=== PATIENT | male | born 1950 | race Caucasian/White ===

== ENCOUNTER 2019-02-18 15:41 | Outpatient (REF) | payer OTHER, SELFPAY ==
[2019-02-18 22:43] LABS: Calculated LDL 146 mg/dL; Cholesterol 259 mg/dL (50-200); HDL Cholesterol 36 mg/dL (40-60); Triglyceride 385 mg/dL (30-150)
[2019-02-22 08:38] LABS: PSA, Screening <0.1 ng/ml (0-4.5)
== END 2019-02-18 16:01 ==
LOC: NCHCN 15:41
PROVIDERS: PCP Family Medicine; Visit Provider Nurse Practitioner Family
DX: Z13.6 Encounter for screening for cardiovascular disorders (principal); Z12.5 Encounter for screening for malignant neoplasm of prostate; R69 Illness, unspecified
CPT/HCPCS: 80061; 84153

== ENCOUNTER 2020-02-16 19:45 | Outpatient (REF) | payer OTHER, SELFPAY ==
[2020-02-17 08:55] LABS: HCT 42.5 % (40.0-50.0); HGB 13.6 g/dL (13.5-17.5); MCH 30.4 pg (27.0-33.0); MCV 94.9 fL (80-95); MPV 11.9 fL (8.0-11.0); Platelet Count 248 10^3/uL (130-400); RBC 4.48 10^6/uL (4.36-5.78); RDW 13.2 % (11.8-14.1); RDW-SD 46.2 fL; WBC 8.68 10^3/uL (4.4-10.8)
[2020-02-17 09:02] LABS: ALT 42 U/L (16-63); AST 24 U/L (15-37); Albumin 3.8 g/dL (3.4-5.0); Alkaline Phosphatase 64 U/L (46-116); Anion Gap 5.7 mmol/L (3-11); BUN 14 mg/dL (7-18); Bilirubin, Total 0.3 mg/dL (0.2-1.0); CO2 29.3 mmol/L (21.0-32.0); CREATININE 0.69 mg/dL (0.70-1.30); Calcium 9.4 mg/dL (8.5-10.1); Calculated LDL 149 mg/dL (<100); Chloride 104 mmol/L (98-107); Cholesterol 238 mg/dL (<200); Glucose 107 mg/dL (74-106); HDL Cholesterol 36 mg/dL (40-60); Potassium 4.6 mmol/L (3.5-5.1); Sodium 139 mmol/L (136-145); Total Protein 6.8 g/dL (6.4-8.2); Triglyceride 268 mg/dL (<150)
== END 2020-02-16 20:05 ==
LOC: NCHCN 19:45
PROVIDERS: PCP Family Medicine; Visit Provider Nurse Practitioner Family
DX: E78.5 Hyperlipidemia, unspecified (principal); E66.9 Obesity, unspecified
CPT/HCPCS: 80053; 80061; 85027

== ENCOUNTER 2020-11-08 01:18 | Outpatient (CLI) | payer OTHER, SELFPAY ==
--- NOTE | 2020-11-08 | DI.MRI_ITS ---
Exam(s) MR IAC BRAIN WO/W EXAM: MR IAC BRAIN WO/W CLINICAL HISTORY: H90.3,BILAT ASYMMETRICAL SN HEARING LOSS TECHNIQUE: Multiplanar multisequence MRI of the brain was performed. Both noninfused and contrast i nfused sequences were performed. Internal auditory canal protocol was performed, IV Contrast injected was 20 cc Dotarem. COMPARISON: No prior brain imaging exams were available for comparison FINDINGS: CEREBRAL PARENCHYMA: No evidence of intracranial hemorrhage. There is no significant signal abnormal ity in the cerebellar hemispheres nor within the thai, midbrain, and thalami. There is minimal periv entricular signal abnormality, nonspecific. IAC'S: There is no evidence of mass in the cerebellopontine angles nor intra canalicular mass. No en hancing acoustic schwannoma-neuroma. On the sub millimeters slice thickness the 7th and 8th cranial nerves in both internal carotid arteries appear unremarkable. PITUITARY GLAND: The main finding here is an enhancing mass in the pituitary fossa which measures son roximately 2 cm maximum craniocaudal by 1 point 5 cm wide by 1.7 cm AP is probably a large pituitary adenoma. This extends into the suprasellar cistern almost to the level of the optic chiasm. Possibl y involving the right cavernous sinus although difficult to assess on this type of study. FLOW VOIDS: The expected flow void are noted. No evidence of obvious aneurysm nor obvious vascular ma lformation. PARANASAL SINUSES: Some mucosal thickening is noted in the left maxillary sinus. No associated fluid level. Right maxillary sinus is clear as are the frontal sinuses. No mass in the sphenoid sinuses. ORBITS: No obvious abnormal findings. IMPRESSION: 1. No evidence of mass in the cerebellopontine angles nor evidence of intra canalicular acoustic neur kathy-more Ivonne. 2. The main finding here is a prominent enhancing mass in the pituitary fossa and suprasellar cistern which is most probably a large pituitary adenoma. This will require further study with dedicated MR I scan of the pituitary fossa and cavernous sinuses. This is a separate contrast infused protocol. DATA REPOSITORY:
[2020-11-08 14:01] LABS: BUN 21 mg/dL (7-18); CREATININE 0.8 mg/dL (0.70-1.30)
[2020-11-08] MEDS: Normal Saline Flush 10 ML SYR IVP (14:17)
[2020-11-08] MEDS: Gadoterate meglumine 20 ML VIAL IVP (14:18)
== END 2020-11-08 01:38 ==
PROVIDERS: PCP Nurse Practitioner Family; Visit Provider Physician Assistant
DX: H90.3 Sensorineural hearing loss, bilateral (principal); E23.6 Other disorders of pituitary gland
CPT/HCPCS: 70553; 84520; 82565

== ENCOUNTER 2020-12-04 03:44 | Outpatient (CLI) | payer OTHER, SELFPAY ==
[2020-12-04 15:11] LABS: ALT 36 U/L (16-63); AST 26 U/L (15-37); Albumin 3.8 g/dL (3.4-5.0); Alkaline Phosphatase 59 U/L (46-116); Anion Gap 7.2 mmol/L (3-11); BUN 20 mg/dL (7-18); Bilirubin, Total 0.3 mg/dL (0.2-1.0); CO2 28.8 mmol/L (21.0-32.0); CREATININE 0.6 mg/dL (0.70-1.30); Calcium 9.7 mg/dL (8.5-10.1); Chloride 105 mmol/L (98-107); Glucose 106 mg/dL (74-106); Potassium 4.2 mmol/L (3.5-5.1); Sodium 141 mmol/L (136-145); TSH (W/Ref FT4) 1.83 uIU/mL (0.36-3.74); Total Protein 7.1 g/dL (6.4-8.2)
[2020-12-04 22:37] LABS: FSH 5.6 mIU/mL (1.4-18.1)
[2020-12-04 22:40] LABS: LH 2.6 mIU/mL (3.1-34.6)
[2020-12-05 10:03] LABS: Prolactin 860.9 ng/mL (2.1-17.7)
[2020-12-05 17:39] LABS: Adrenocorticotropic Hormone, P 63 pg/mL
[2020-12-08 09:33] LABS: IGF-1, LC/MS, S 72 ng/mL (32-209); Z-score -0.84 SD
== END 2020-12-04 03:45 | disposition home or self-care (01) ==
LOC: LBO 03:44
PROVIDERS: PCP Nurse Practitioner Family; Visit Provider Physician Assistant
DX: H90.3 Sensorineural hearing loss, bilateral (principal); E23.6 Other disorders of pituitary gland
CPT/HCPCS: 36415; 80053; 82024; 83001; 83002; 84146; 84305; 84443

== ENCOUNTER 2020-12-06 10:17 | Outpatient (REF) | payer OTHER, SELFPAY ==
[2020-12-12 23:18] LABS: Cortisol, U 20 mcg/24 h (3.5-45); Urine Volume 2500 mL
== END 2020-12-06 10:18 | disposition home or self-care (01) ==
LOC: LBN 10:17
PROVIDERS: PCP Nurse Practitioner Family; Visit Provider Physician Assistant
DX: E23.6 Other disorders of pituitary gland (principal)
CPT/HCPCS: 81050; 82530; 83789

== ENCOUNTER 2021-01-03 01:01 | Outpatient (CLI) | payer OTHER, SELFPAY ==
--- NOTE | 2021-01-03 | DI.MRI_ITS ---
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 Both noninfused and contrast infused sequences were performed. IV Contrast injected was 20 cc Dotarem. COMPARISON: MR MR IAC BRAIN WO/W from 11/08/2020 MR MR IAC BRAIN WO/W from 11/08/2020 FINDINGS: PITUITARY GLAND: There is a large mass in the pituitary fossa which completely fills the pituitary fo ssa extends into the suprasellar cistern but not to the level of the optic chiasm. This uniformly en hancing mass has eroded into the dorsum sella and extends asymmetrical into the right cavernous sinus surrounding the intracavernous right internal carotid artery. More subtle involvement of the left c avernous sinus. There is bulging of the floor of the sella. Mass has replaced part of the clivus-ba siocciput. This mass measures 2.4 cm craniocaudal, 2.6 cm wide, and 2 cm AP. The infundibulum is sl ightly deviated towards the left side. Mass does not extend into the pre pontine-retro sellar cister n. FLOW VOIDS: The expected flow void are noted. Flow void within the intracavernous internal carotid a rteries are intact bilaterally. No evidence of obvious aneurysm nor obvious vascular malformation. PARANASAL SINUSES: The visualized paranasal sinuses appear unremarkable. ORBITS: The mass does not appear to reach the optic chiasm nor into the orbits. IMPRESSION: 1. Large enhancing mass as described above occupying the entire pituitary fossa with extension into t he suprasellar cistern as well as into the right cavernous sinus. This most probably a pituitary macr o adenoma. DATA REPOSITORY:
[2021-01-03] MEDS: Normal Saline Flush 10 ML SYR IVP (08:33)
[2021-01-03] MEDS: Gadoterate meglumine 20 ML VIAL IVP (08:34)
--- NOTE | 2021-01-03 17:54 | DI.VRAD_ITS ---
PROCEDURE INFORMATION: Exam: MR Head Without and With Contrast Exam date and time: 01/03/2021 9:25 AM Age: 70 years old Clinical indication: Other: Not specified TECHNIQUE: Imaging protocol: MR of the head without and with intravenous contrast. Total images: 941 COMPARISON: MR IAC BRAIN WO/W 11/08/2020 2:03 PM FINDINGS: Brain: There is minimal periventricular and subcortical chronic white matter disease. No posterior fossa lesion. Cerebral ventricles: No hydrocephalus. Pituitary gland and sella: Again identified is a mass occupying the sella and suprasellar region. The lesion measures 1.9 cm in height by 1.8 cm in width. The lesion is isointense to brain parenchyma on T1 weighted images and slightly hyperintense on T2 weighted images. There is a stable small ill-defined region of T1 hyperintensity along the lateral superior aspect of the lesion which may represent fat or less likely methemoglobin/hemorrhage. There is no invasion of the clivus or cavernous sinus. There is relatively homogeneous enhancement of the lesion. Paranasal sinuses: No acute sinusitis. Mastoid air cells: No mastoid effusion. Orbital cavity: Unremarkable. Soft tissues: Unremarkable. IMPRESSION: Sellar/suprasellar mass. Favor pituitary macroadenoma. Dictated and Authenticated by: Deniz Lr MD. Ordering:NEHAL Mckinney MD
== END 2021-01-03 01:21 ==
PROVIDERS: PCP Nurse Practitioner Family; Visit Provider Physician Assistant
DX: D35.2 Benign neoplasm of pituitary gland (principal)
CPT/HCPCS: 70553

== ENCOUNTER 2021-02-12 03:23 | Outpatient (CLI) | payer OTHER, SELFPAY ==
[2021-02-12 21:35] LABS: T3,Free 3.3 pg/mL (2.8-5.3)
[2021-02-20 13:47] LABS: Testosterone, Free 3.86 ng/dL (3.28-12.2); Testosterone, Total 184 ng/dL (240-950)
== END 2021-02-12 03:24 | disposition home or self-care (01) ==
LOC: LBO 03:23
PROVIDERS: PCP Nurse Practitioner Family; Visit Provider Internal Medicine Endocrinology, Diabetes & Metabolism
DX: D35.2 Benign neoplasm of pituitary gland (principal); E23.0 Hypopituitarism
CPT/HCPCS: 36415; 84402; 84403; 84439; 84481

== ENCOUNTER 2021-07-24 16:29 | Outpatient (REF) | payer MEDICARE, SELFPAY ==
[2021-07-24 21:18] LABS: Hemoglobin A1C 6.2 % (<5.7)
[2021-07-24 21:25] LABS: Calculated LDL 90 mg/dL (<100); Cholesterol 187 mg/dL (<200); HDL Cholesterol 38 mg/dL (40-60); Triglyceride 297 mg/dL (<150)
== END 2021-07-24 16:30 | disposition home or self-care (01) ==
LOC: NCHCN 16:29
PROVIDERS: PCP Nurse Practitioner Family; Visit Provider Nurse Practitioner Family
DX: E78.5 Hyperlipidemia, unspecified (principal); R73.03 Prediabetes
CPT/HCPCS: 80061; 83036

== ENCOUNTER → 2021-08-24 00:45 | Outpatient (CLI) | payer MEDICARE, SELFPAY ==
--- NOTE | 2021-08-24 | DI.MRI_ITS ---
Exam(s) MR BRAIN PITUITARY WO/W EXAM: MR BRAIN PITUITARY WO/W CLINICAL HISTORY: MACROPROLACTINOMA, D35.2 TECHNIQUE: Multiplanar multisequence MRI of the brain was performed. Both noninfused and contrast i nfused sequences were performed. IV Contrast injected was 20 cc Dotarem. COMPARISON: MR MR IAC BRAIN WO/W from 11/08/2020 MR MR BRAIN PITUITARY WO/W from 01/03/2021 FINDINGS: PITUITARY GLAND: Previously described large mass in the pituitary fossa appears unchanged in size, ag ain extending into the suprasellar cistern but not to the level of the optic chiasm and with associat ed erosion of the dorsum sella, smooth erosion of the clivus-basiocciput, and bulging of the floor of the sella but without rupture into the subjacent sphenoid sinus. The mass does not extend appreciab ly into the pre pontine-retro sellar cistern. Involvement of the cavernous sinuses is again evident, unchanged CEREBRAL PARENCHYMA: No evidence of intracranial hemorrhage, new mass effect nor shift of midline str ucture. No extraaxial fluid collections. Ventricles are not enlarged nor shifted. There is no significant focal signal abnormality in the cerebellar hemispheres nor within the thai, m idbrain, and thalami. Mount of periventricular signal abnormality around the atrium of the lateral ventricles is unchanged. . There are no new ring enhancing lesions in the brain. There is no abnormal meningeal enhancement. FLOW VOIDS: The expected flow void are noted. No evidence of obvious aneurysm nor obvious vascular ma lformation. PARANASAL SINUSES: The visualized paranasal sinuses appear unremarkable. ORBITS: No obvious abnormal findings. IMPRESSION: 1. Stable appearance of the previously described pituitary macroadenoma. Also stable mild periventric ular white microvascular findings. 2. No abnormal enhancing intracranial finding. DATA REPOSITORY:
[2021-08-24 10:28] LABS: CREATININE 0.7 mg/dL (0.70-1.30)
[2021-08-24] MEDS: Normal Saline Flush 10 ML SYR IVP (10:33)
[2021-08-24] MEDS: Gadoterate meglumine 20 ML VIAL IVP (10:34)
--- NOTE | 2021-08-24 12:17 | DI.VRAD_ITS ---
PROCEDURE INFORMATION: Exam: MR Head Without and With Contrast Exam date and time: 08/24/2021 10:07 AM Age: 70 years old Clinical indication: Other: Macroprolactinoma TECHNIQUE: Imaging protocol: MR of the head without and with intravenous contrast. Contrast material: DOTAREM; Contrast volume: 20 ml; Contrast route: IV; COMPARISON: MR BRAIN PITUITARY WO/W 01/03/2021 8:19 AM FINDINGS: Brain: Patchy T2 prolongation in the cerebral white matter is nonspecific, but likely secondary to microvascular disease. Diffusion images are normal. No evidence of acute infarction. No evidence of acute intracranial hemorrhage. No extra-axial fluid collections. Ventricles and cerebrospinal fluid spaces are normal in size and configuration for the patient's age. There is no evidence of mass-effect or midline shift. Flow voids of the iliamna of Crews and major cerebral vascular structures appear intact. Craniocervical junction appears unremarkable, with normal position of cerebellar tonsils and no evidence of Chiari I malformation. There is no abnormal leptomeningeal or parenchymal contrast enhancement. Cerebral ventricles: Normal. No ventriculomegaly. Pituitary gland and sella: Stable size expansile lesion in the sellar region extending into the suprasellar region left greater than right. This expands the sella turcica with erosion the right dorsum sella and bilateral upper clivus. The fat signal to the left is fat within the left dorsum sella. This shows slightly in homogeneous enhancement and measures 1.9 cm x 1.7 cm x 1.7 cm. Small T2 hyperintense and cystic area in inferior aspect of lesion previously seen is no longer appreciated. Bones/joints: Unremarkable as visualized. Paranasal sinuses: Normal as visualized. No acute sinusitis. Mastoid air cells: Small amount right mastoid fluid. Orbital cavities: Unremarkable. Soft tissues: Unremarkable as visualized. IMPRESSION: Essentially stable pituitary macroadenoma. Dictated and Authenticated by: Paulette Whyte MD. Ordering:BLANE Bassett MD
== END ==
PROVIDERS: Physician Assistant Surgical; PCP Nurse Practitioner Family; Visit Provider Neurological Surgery
DX: Z01.812 Encounter for preprocedural laboratory examination (principal); D35.2 Benign neoplasm of pituitary gland
CPT/HCPCS: 70553; 82565

== ENCOUNTER 2024-03-09 16:25 | Outpatient (REF) | payer MEDICARE, SELFPAY ==
[2024-03-09 15:18] LABS: Abs Immature Grans 0.02 10^3/uL (0.0-0.06); Absolute Basophil Count 0.06 10^3/uL (0.0-0.2); Absolute Eosinophil Count 0.23 10^3/uL (0.0-0.7); Absolute Lymphocyte Count 1.04 10^3/uL (1.2-3.4); Absolute Monocyte Count 0.52 10^3/uL (0.1-0.8); Absolute Neutrophil Count 4.32 10^3/uL (1.2-6.7); Eosinophils % 3.7 %; HCT 40.5 % (40.0-50.0); Immature Grans % 0.3 %; Lymphocytes % 16.8 %; MCH 30.2 pg (27.0-33.0); MCHC 32.1 % (32.0-36.0); MCV 94 fL (80-95); Monocytes % 8.4 %; Neutrophils % 69.8 %; Platelet Count 269 10^3/uL (130-400); RDW 14.4 % (11.8-14.1); Reticulocyte 0.8 % (0.5-2.4); WBC 6.19 10^3/uL (4.4-10.8)
[2024-03-09 15:56] LABS: ALT 33 U/L (16-63); AST 27 U/L (15-37); Albumin 3.7 g/dL (3.4-5.0); Alkaline Phosphatase 97 U/L (46-116); Anion Gap 9.7 mmol/L (3-11); BUN 26 mg/dL (7-18); Bilirubin, Total 0.39 mg/dL (0.2-1.0); CO2 25.3 mmol/L (21.0-32.0); CREATININE 0.8 mg/dL (0.70-1.30); Calculated LDL 78 mg/dL (<100); Chloride 111 mmol/L (98-107); Cholesterol 159 mg/dL (<200); Estimated GFR 93.45 (mL/min/1.73m2); Ferritin 270 ng/mL (26-388); Folate 8.7 ng/mL (8.6-20.0); Glucose 90 mg/dL (74-106); HDL Cholesterol 58 mg/dL (40-60); Potassium 4.5 mmol/L (3.5-5.1); Sodium 146 mmol/L (136-145); Total Protein 7.6 g/dL (6.4-8.2); Triglyceride 118 mg/dL (<150); Vitamin B12 277 pg/mL (193-986)
--- OUTSIDE RECORDS SUMMARY | 2024-03-09 16:31 | XMS_ITS ---
Author Organization Unknown Address [address] [place], [place] [id number] Phone Care Team Providers Care Button Machine Operator Name Role Phone HAKEEM Benítez Attending Mauri Swanson Primary Unavailable Results COMPREHENSIVE METABOLIC PANNoelle Cordon (CMP) - Collect Date/Time: 02/13/2023 14:39 [facility] ID: [id number] - [id number] [address] [place], [place], [address] LOINC: 27837-9 Test Value Unit Reference Range Code Code System Flag GLUCOSE 99 mg/dL L=70 H=116 2345-7 LOINC BUN 14 mg/dL L=6 H=25 3094-0 LOINC CREATININE 0.65 mg/dL L=0.67 H=1.17 2160-0 LOINC L SODIUM SERUM 141 mmol/L L=136 H=145 2951-2 LOINC POTASSIUM SERUM 4.4 mmol/L L=3.4 H=5.2 2823-3 LOINC CHLORIDE SERUM 105 mmol/L L=96 H=110 2075-0 LOINC CARBON DIOXIDE (CO2) 29 mmol/L L=22 H=34 2028-9 LOINC ANION GAP 7.2 mmol/L 73570-7 LOINC CALCIUM SERUM 10.2 mg/dL L=8.2 H=10.2 70391-8 LOINC BILIRUBIN TOTAL 0.5 mg/dL L=0.0 H=1.3 1975-2 LOINC ALK. PHOS. 74 U/L L=46 H=116 6768-6 LOINC SGOT (AST) 30 U/L L=15 H=37 1920-8 LOINC SGPT (ALT) 28 U/L L=12 H=78 1742-6 LOINC TOTAL PROTEIN 7.0 gm/dL L=6.0 H=8.0 2885-2 LOINC ALBUMIN 3.8 gm/dL L=3.4 H=5.0 1751-7 LOINC AGE 72 years eGFR (non-Afr.Amer.) > 120 mL/min 53527-5 LOINC eGFR (Afr-Estonian) > 120 mL/min 38261-6 LOINC Social History Type Status Start Date End Date Code Code Syst em Smoking History Former smoker 5132893 SNOMED CT Sex Male Medications Medication Start Date End Date Route Frequency Dose Code Code System Medication Instructions Home Meds carBAMazepine 100MG Oral Capsule, Extended Release 02/19/2024 Unknown ORAL EVERY 12 HOURS 1 CAPSULE 696736 RxNorm TAKE 1 CAPSULE ORAL EVERY 12 HOURS Hospital Discharge Instructions Should you have any questions prior to discharge, please contact a member of your healthcare team. If you have left the hospital and have any questions, please contact your primary care physician. Reason For Referral No Data Found Problems Problem Start Date Resolved Date Status Code Code System DISORDER OF PROLACTIN 02/05/2023 resolved 8703010 09 SNOMED-CT HYPERCHOLESTEROLEMIA 02/05/2023 resolved 19945967 SNOMED-CT DEPRESSION 02/05/2023 resolved 01693370 SNOMED-C T PITUITARY TUMOR 01/07/2024 resolved 136911016 SNO MED-CT Allergies and Adverse Reactions Allergy Substance Reaction Severity Start Date Concern Status Co de Code System CODEINE Vomiting (SNOMED-CT: 874095516) Moderate Active 2670 RxNorm LATEX Hives (SNOMED-CT: 884707333) Moderate Active PENICILLIN Rash (SNOMED-CT: 000946805) Active Plan of Treatment No Data Found Encounters Encounter Diagnosis Start Date Code Code Sys tem Pre-surgery evaluation 02/13/2023 893394724 SNOME D-CT Personal Care Team Section Performer Name Performer Role Active Date Inactive Da te
--- OUTSIDE RECORDS SUMMARY | 2024-03-09 16:31 | XMS_ITS ---
Author Organization Unknown Address [address] [place] [phone] Phone Care Team Providers Care Metal [employer]ricating [employer] Helper Name Role Phone HAKEEM Benítez Attending Unavaila jonathon Swanson Primary Unavailable Social History Type Status Start Date End Date Code Code Syst em Smoking History Former smoker 7176056 SNOMED CT Sex Male Medications Medication Start Date End Date Route Frequency Dose Code Code System Medication Instructions Home Meds carBAMazepine 100MG Oral Capsule, Extended Release 02/19/2024 Unknown ORAL EVERY 12 HOURS 1 CAPSULE 597503 RxNorm TAKE 1 CAPSULE ORAL EVERY 12 [...] Code System DISORDER OF PROLACTIN 02/05/2023 resolved 0767357 09 SNOMED-CT HYPERCHOLESTEROLEMIA 02/05/2023 resolved 56918271 SNOMED-CT DEPRESSION 02/05/2023 resolved 29593848 SNOMED-C T PITUITARY TUMOR 01/07/2024 resolved 370188319 SNO MED-CT Allergies and Adverse Reactions Allergy Substance Reaction Severity Start Date Concern Status Co de Code System CODEINE Vomiting (SNOMED-CT: 757137771) Moderate Active 2670 RxNorm LATEX Hives (SNOMED-CT: 367663532) Moderate Active PENICILLIN Rash (SNOMED-CT: 365047608) Active Plan of Treatment No Data Found Encounters Encounter Diagnosis Start Date Code Code Sys tem Follow-up visit 03/11/2023 [id number] SNOMED-CT Personal Care Team Section Performer Name Performer Role Active Date Inactive Da te
--- OUTSIDE RECORDS SUMMARY | 2024-03-09 16:31 | XMS_ITS ---
Author Organization Unknown Address [address] [place] [phone] Phone Care Team Providers Care Judicial Administrative Assistant Name Role Phone REGI Ramos Attending Unavailable JB Swanson Primary Unavailable Results XR KNEE 4V LT* - Completed: 02/17/2024 10:36 LOINC: [facility] [place], [place] [address] RADIOLOGY BLOOD BANK SUPERVISOR REPORT Patient Name: SARAH POOL MRN: Sex: : Age: [id number] M [id number] Account: Accession: Admit: StayType: [id number] 02/17/2024 O Ordered: Order ID: Submitted: Ordering Provider: 02/17/2024 10:29 [id number] TAHMINA DELUNA Completed: Technologist: Resulted: 02/17/2024 10:32 02/18/2024 12:00 EXAMINATION: XR KNEE 4V LT CLINICAL HISTORY: REASON: LEFT KNEE PAIN, UNSPECIFIED CHRONICITY ADD'L INFO: WB TECHNIQUE: 4 views LEFT knee COMPARISON: Left knee radiograph 01/07/2024 FINDINGS: No acute fracture or dislocation. Diffuse bone demineralization. Tricompartment osteoarthropathy, with mild joint space narrowing, subchondral sclerosis and osteophytes with predominance in the medial compartment. Chondrocalcinosis. Vascular calcifications. IMPRESSION: 1. Mild left knee osteoarthropathy. 2. Bone demineralization Thank you for letting us participate in the care of this patient. If you are a health care provider and have any questions regarding this report, please contact the number below. For patients who have questions please contact the health date night caregiver that requested your imaging first. Social History Type Status Start Date End Date Code Code Syst em Smoking History Former smoker 3828658 SNOMED CT Sex Male Medications Medication Start Date End Date Route Frequency Dose Code Code System Medication Instructions Home Meds carBAMazepine 100MG Oral Capsule, Extended Release 02/19/2024 Unknown ORAL EVERY 12 HOURS 1 CAPSULE 062991 RxNorm TAKE 1 CAPSULE ORAL EVERY 12 [...] Code System DISORDER OF PROLACTIN 02/05/2023 resolved 5047556 09 SNOMED-CT HYPERCHOLESTEROLEMIA 02/05/2023 resolved 41501542 SNOMED-CT DEPRESSION 02/05/2023 resolved 72715334 SNOMED-C T PITUITARY TUMOR 01/07/2024 resolved 177451463 SNO MED-CT Allergies and Adverse Reactions Allergy Substance Reaction Severity Start Date Concern Status Co de Code System CODEINE Vomiting (SNOMED-CT: 295544870) Moderate Active 2670 RxNorm LATEX Hives (SNOMED-CT: 919610203) Moderate Active PENICILLIN Rash (SNOMED-CT: 194212011) Active Plan of Treatment No Data Found Personal Care Team Section Performer Name Performer Role Active Date Inactive Da te
--- OUTSIDE RECORDS SUMMARY | 2024-03-09 16:31 | XMS_ITS ---
Author Organization Unknown Address [address] [place] [phone] Phone Care Team Providers Care Rework Machine Operator Name Role Phone HAKEEM MADONNA Jeyson Attending Unavaila ble Social History Type Status Start Date End Date Code Code Syst em Smoking History Former smoker 3029867 SNOMED CT Sex Male Medications Medication Start Date End Date Route Frequency Dose Code Code System Medication Instructions Home Meds carBAMazepine 100MG Oral Capsule, Extended Release 02/19/2024 Unknown ORAL EVERY 12 HOURS 1 CAPSULE 943785 RxNorm TAKE 1 CAPSULE ORAL EVERY 12 [...] Code System DISORDER OF PROLACTIN 02/05/2023 resolved 0828185 09 SNOMED-CT HYPERCHOLESTEROLEMIA 02/05/2023 resolved 74070917 SNOMED-CT DEPRESSION 02/05/2023 resolved 63942349 SNOMED-C T PITUITARY TUMOR 01/07/2024 resolved 319450814 SNO MED-CT Allergies and Adverse Reactions Allergy Substance Reaction Severity Start Date Concern Status Co de Code System CODEINE Vomiting (SNOMED-CT: 000010990) Moderate Active 2670 RxNorm LATEX Hives (SNOMED-CT: 853882840) Moderate Active PENICILLIN Rash (SNOMED-CT: 414371598) Active Plan of Treatment No Data Found Encounters Encounter Diagnosis Start Date Code Code Sys tem Calculus of gallbladder with chronic cholecystitis without obstruction 02/21/2023 SNOMED-CT Personal Care Team Section Performer Name Performer Role Active Date Inactive Da te
--- OUTSIDE RECORDS SUMMARY | 2024-03-09 16:31 | XMS_ITS ---
Author Organization Unknown Address [address] [place] [address] [phone] Phone Care Team Providers Care Charrer Name Role Phone J LUIS CASTANEDA Registered Nurse Unavailable MARCELO Singh Attending Unavailable JB Swanson Primary Unavailable UNLISTED PROVIDER - REQUESTED Xhandoff Un available Results MAGNESIUM SERUM* - Collect D ate/Time: 02/05/2023 20:36 [facility] ID: [id number] [address] [place] [address], [address] LOINC: 96963-8 Test Value Unit Reference Range Code Code System Flag MAGNESIUM 1.8 mg/dL L=1.8 H=2.4 65033-9 LOINC TROPONIN HIGH SENSITIVITY* - Collect Date/Time: 02/05/2023 20:36 [facility] ID: [id number] [address] [place] [address], [address] LOINC: 39711-7 Test Value Unit Reference Range Code Code System Flag TROPONIN HS 10.4 pg/mL L=0.0 H=60.4 Specimen seq. RANDOM D-DIMER - Collect Date/Time: 02/05/2023 20:36 [facility] ID: [id number] - [id number] [address] [place] [address], [address] LOINC: 72585-3 Test Value Unit Reference Range Code Code System Flag D-DIMER 0.45 mg/L L=0.19 H=0.50 53014-5 LOINC COMPREHENSIVE METABOLIC PANE L (CMP) - Collect Date/Time: 02/05/2023 20:36 [facility] ID: [id number] - [id number] [address] [place], [place], [address] LOINC: 74753-0 Test Value Unit Reference Range Code Code System Flag GLUCOSE 102 mg/dL L=70 H=116 2345-7 LOINC BUN 21 mg/dL L=6 H=25 3094-0 LOINC CREATININE 0.75 mg/dL L=0.67 H=1.17 2160-0 LOINC SODIUM SERUM 141 mmol/L L=136 H=145 2951-2 LOINC POTASSIUM SERUM 4.3 mmol/L L=3.4 H=5.2 2823-3 LOINC CHLORIDE SERUM 106 mmol/L L=96 H=110 2075-0 LOINC CARBON DIOXIDE (CO2) 30 mmol/L L=22 H=34 2028-9 LOINC ANION GAP 5.0 mmol/L 75981-8 LOINC CALCIUM SERUM 10.6 mg/dL L=8.2 H=10.2 29611-1 LOINC H BILIRUBIN TOTAL 0.4 mg/dL L=0.0 H=1.3 1975-2 LOINC ALK. PHOS. 75 U/L L=46 H=116 6768-6 LOINC SGOT (AST) 24 U/L L=15 H=37 1920-8 LOINC SGPT (ALT) 27 U/L L=12 H=78 1742-6 LOINC TOTAL PROTEIN 7.4 gm/dL L=6.0 H=8.0 2885-2 LOINC ALBUMIN 3.8 gm/dL L=3.4 H=5.0 1751-7 LOINC AGE 72 years eGFR (non-Afr.Amer.) 102 mL/min 98643-0 LOINC eGFR (Afr-[place]er) > 120 mL/min 09838-6 LOINC CBC W/ DIFFERENTIAL* - Colle ct Date/Time: 02/05/2023 20:36 [facility] ID: [id number] [address] [place], [place], [address] LOINC: 95916-6 Test Value Unit Reference Range Code Code System Flag WBC 7.40 th/cmm L=5.00 H=10.00 6690-2 LOINC NEUT % 70.7 % L=40.0 H=80.0 LYMPH % 18.4 % L=10.0 H=50.0 MONO % 6.9 % L=2.0 H=12.0 66591-7 LOINC EOS % 2.8 % L=0.0 H=8.0 BASO % 0.9 % L=0.0 H=3.0 IG % 0.3 % L=0.0 H=1.1 2514-8 LOINC NRBC % 0.0 % L=0.0 H=0.0 82108-9 LOINC NEUT abs count 5.2 th/cmm L=1.6 H=8.4 751-8 LOINC LYMPH abs count 1.4 th/cmm L=1.5 H=4.0 731-0 LOINC L MONO abs count 0.5 th/cmm L=0.2 H=1.0 742-7 LOINC EOS abs count 0.2 th/cmm L=0.0 H=0.5 711-2 LOINC BASO abs count 0.1 th/cmm L=0.0 H=0.2 704-7 LOINC IG abs count 0.0 th/cmm L=0.0 H=0.1 66273-8 LOINC NRBC abs count 0.0 mil/cmm L=0.0 H=0.0 83320-4 LOINC RBC 4.27 mil/cmm L=4.30 H=6.20 789-8 LOINC L HEMOGLOBIN 12.7 gm/dL L=13.0 H=17.0 718-7 LOINC L HEMATOCRIT 39 % L=45 H=52 4544-3 LOINC L MCV 92 fL L=82 H=92 787-2 LOINC MCH 29.7 pg L=27.0 H=31.0 785-6 LOINC MCHC 32.5 % L=32.0 H=36.0 786-4 LOINC RDW-SD 46.3 fL L=39.0 H=49.0 788-0 LOINC PLATELET COUNT 251 th/cmm L=150 H=450 777-[address] ABD PELVIS W IV CONTRAST ONLY - Completed: 02/05/2023 21:38 LOINC: [facility] RADIOLOGY [place], [place] [address] PACS LOADING MACHINE ADJUSTER REPORT Patient Name: SARAH POOL MRN: Sex: : Age: [id number] M 1950 72 Account: Accession: Admit: StayType: [id number] 02/05/2023 E/R Ordered: Order ID: Submitted: Ordering Provider: 02/05/2023 21:27 [id number] VAISHALI HULL Completed: Technologist: Resulted: 02/05/2023 21:38 MXK 02/06/2023 08:28 Study Description: CT ABD PELVIS W IV CONTRAST ONLY Reason for Study: Abdominal Pain Imaging Protocol: Axial computed tomography images with coronal and sagittal reformatted images were created and reviewed. Contrast Material: Intravenous: Omnipaque 350 Contrast volume: 100 mL Comparison: 12 April 2019 FINDINGS: Lung Bases: Normal where visualized. Liver: Normal density. No suspicious measurable mass. Gallbladder and Biliary Tract: Multiple gallstones noted. No change in appearance of gallbladder from prior. No biliary dilation. Pancreas: Normal density, no abnormal calcifications or inflammatory process. Spleen: Normal. Adrenals: No masses seen. Kidneys: Normal size, contour and axis. No radiodense stones. No obstructive uropathy. No suspicious masses seen. Abdominal Aorta: Abdominal portion non-dilated. Atherosclerotic changes. Bowel: No obstruction. No bowel wall thickening. Appendix is unremarkable. Peritoneal Cavity: No ascites or focal collection. No mesenteric inflammatory response. No free air. Lymph Nodes: Within normal limits. Bones: Degenerative changes in the spine and hips. Soft Tissues: Small fatty containing umbilical hernia. Bladder: Symmetric distention. No gross wall thickening. Reproductive Organs: Unremarkable as visualized. IMPRESSION: Cholelithiasis again demonstrated. The appearance of the gallbladder is unchanged from prior. There is trace wall thickening. No biliary dilatation. Radiation Optimization: All CT scans at this facility use at least one of these dose optimization techniques: automated exposure control; mA and/or kV adjustment per patient size (includes targeted exams where dose is matched to clinical indication); or iterative reconstruction. Report Digitally Signed by Natalie Mcginnis on 02/06/2023 08:28 AM EDT XR CHEST PORTABLE OR 1V - Co mpleted: 02/05/2023 21:13 LOINC: [facility] [place], [place] [address] PACS LOADING MACHINE ADJUSTER REPORT Patient Name: SARAH POOL MRN: Sex: : Age: [id number] M 1950 72 Account: Accession: Admit: StayType: [id number] 02/05/2023 E/R Ordered: Order ID: Submitted: Ordering Provider: 02/05/2023 20:34 [id number] VAISHALI HULL Completed: Technologist: Resulted: 02/05/2023 21:13 KM 02/06/2023 08:30 Study Description: XR CHEST PORTABLE OR 1V Study Reason: Chest Pain TECHNIQUE: 2D Digital imaging Number of views: 2 Views COMPARISON: 21 Sep 2017 FINDINGS: Leads are coiled over the chest. LUNGS: Clear. PLEURA: No pleural abnormality seen. HEART: Normal size. AORTA: Normal diameter. BONES: Unremarkable for age. SOFT TISSUES: Unremarkable. IMPRESSION: No acute findings. Report Digitally Signed by Natalie Mcginnis on 02/06/2023 08:30 AM EDT Social History Type Status Start Date End Date Code Code Syst em Smoking History Former smoker 6202567 SNOMED CT Sex Male Vital Signs Vital Sign Value Unit Scurry Value Scurry Unit Date/Time Recent/Initial? Code Code System Body Mass Index 26.97 kg/m2 02/05/2023 20:43 Initial 14750 -5 LOINC Systolic Blood Pressure 128 mm[Hg] 02/05/2023 22:40 Most Recent 8480- 6 LOINC Diastolic Blood Pressure 66 mm[Hg] 02/05/2023 22:40 Most Recent 8462- 4 LOINC Systolic Blood Pressure 144 mm[Hg] 02/05/2023 20:43 Initial 8480- 6 LOINC Diastolic Blood Pressure 77 mm[Hg] 02/05/2023 20:43 Initial 8462- 4 LOINC Body Surface Area 2.05 m2 02/05/2023 20:43 Initial 3140- 1 LOINC Height 177.800 0 cm 70.00 in 02/05/2023 20:43 Initial 8302- 2 LOINC O2 Saturation 99 % 2022 22:40 Most Recent 82928 -5 LOINC O2 Saturation 99 % 2022 20:43 Initial 60866 -5 LOINC Pulse 62.0 /min 02/05/2023 22:40 Most Recent 8867- 4 LOINC Pulse 65.0 /min 02/05/2023 20:43 Initial 8867- 4 LOINC Respiration 18 /min 02/06/20 22:40 Most Recent 9279- 1 LOINC Respiration 15 /min 02/06/20 20:43 Initial 9279- 1 LOINC Temperature 36.6 Felipa 97.9 F 02/06/20 22:40 Most Recent 8310- 5 LOINC Temperature 36.3 Felipa 97.3 F 02/06/20 20:43 Initial 8310- 5 LOINC Weight 85.28 kg 188.00 lbs 02/05/2023 20:43 Initial 87618 -7 LOINC Medications Medication Start Date End Date Route Frequency Dose Code Code System Medication Instructions Home Meds carBAMazepine 100MG Oral Capsule, Extended Release 02/19/2024 Unknown ORAL EVERY 12 HOURS 1 CAPSULE 162464 RxNorm TAKE 1 CAPSULE ORAL EVERY 12 [...] Code System DISORDER OF PROLACTIN 02/05/2023 resolved 5073294 09 SNOMED-CT HYPERCHOLESTEROLEMIA 02/05/2023 resolved 46634112 SNOMED-CT DEPRESSION 02/05/2023 resolved 80789298 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
--- OUTSIDE RECORDS SUMMARY | 2024-03-09 16:31 | XMS_ITS ---
Author Organization Unknown Address [address] [place] [address] [phone] Phone Care Team Providers Care Rn Care Transition Name Role Phone JOSHUA Ray GALEANO Registered Nurse Unavailable ANGELI LEE Registered Nurse Unavailable PRICILLA Benítez Attending Unavailable ARISTEO KELSEY ER Unavailable COSMEALBINA CHANCE Kiki Primary Unavailable UNLISTED PROVIDER - REQUESTED Xhandoff Un available ARISTEO KELSEY Transferring Provider Results TROPONIN HIGH SENSITIVITY* - Collect Date/Time: 01/07/2024 21:25 [facility] ID: [id number] - [id number] [address] [place] [address], [address] LOINC: 66976-8 Test Value Unit Reference Range Code Code System Flag TROPONIN HS 10.7 pg/mL L=0.0 H=60.4 Specimen seq. RANDOM COMPREHENSIVE METABOLIC PANE L (CMP) - Collect Date/Time: 01/07/2024 21:25 [facility] ID: [id number] [address] [place] [address], [address] LOINC: 25346-5 Test Value Unit Reference Range Code Code System Flag GLUCOSE 98 mg/dL L=70 H=116 2345-7 LOINC BUN 20 mg/dL L=6 H=25 3094-0 LOINC CREATININE 0.77 mg/dL L=0.67 H=1.17 2160-0 LOINC SODIUM SERUM 141 mmol/L L=136 H=145 2951-2 LOINC POTASSIUM SERUM 3.9 mmol/L L=3.4 H=5.2 2823-3 LOINC CHLORIDE SERUM 105 mmol/L L=96 H=110 2075-0 LOINC CARBON DIOXIDE (CO2) 27 mmol/L L=22 H=34 2028-9 LOINC ANION GAP 8.9 mmol/L 67871-4 LOINC CALCIUM SERUM 10.0 mg/dL L=8.2 H=10.2 46488-7 LOINC BILIRUBIN TOTAL 0.3 mg/dL L=0.0 H=1.3 1975-2 LOINC ALK. PHOS. 83 U/L L=46 H=116 6768-6 LOINC SGOT (AST) 29 U/L L=15 H=37 1920-8 LOINC SGPT (ALT) 38 U/L L=12 H=78 1742-6 LOINC TOTAL PROTEIN 7.2 gm/dL L=6.0 H=8.0 2885-2 LOINC ALBUMIN 3.7 gm/dL L=3.4 H=5.0 1751-7 LOINC AGE 73 years eGFR (non-Afr.Amer.) 99 mL/min 45374-9 LOINC eGFR (Afr-[place]) 120 mL/min 75272-4 LOINC CBC W/ DIFFERENTIAL* - Colle ct Date/Time: 01/07/2024 21:25 [facility] ID: [id number] [address] [place], [place], [address] LOINC: 49387-2 Test Value Unit Reference Range Code Code System Flag WBC 6.94 th/cmm L=5.00 H=10.00 6690-2 LOINC NEUT % 71.2 % L=40.0 H=80.0 LYMPH % 17.3 % L=10.0 H=50.0 MONO % 6.9 % L=2.0 H=12.0 79236-1 LOINC EOS % 3.9 % L=0.0 H=8.0 BASO % 0.6 % L=0.0 H=3.0 IG % 0.1 % L=0.0 H=1.1 2514-8 LOINC NRBC % 0.0 % L=0.0 H=0.0 57614-3 LOINC NEUT abs count 4.9 th/cmm L=1.6 H=8.4 751-8 LOINC LYMPH abs count 1.2 th/cmm L=1.5 H=4.0 731-0 LOINC L MONO abs count 0.5 th/cmm L=0.2 H=1.0 742-7 LOINC EOS abs count 0.3 th/cmm L=0.0 H=0.5 711-2 LOINC BASO abs count 0.0 th/cmm L=0.0 H=0.2 704-7 LOINC IG abs count 0.0 th/cmm L=0.0 H=0.1 29294-5 LOINC NRBC abs count 0.0 mil/cmm L=0.0 H=0.0 65535-9 LOINC RBC 4.12 mil/cmm L=4.30 H=6.20 789-8 LOINC L HEMOGLOBIN 12.7 gm/dL L=13.0 H=17.0 718-7 LOINC L HEMATOCRIT 38 % L=45 H=52 4544-3 LOINC L MCV 93 fL L=82 H=92 787-2 LOINC H MCH 30.8 pg L=27.0 H=31.0 785-6 LOINC MCHC 33.2 % L=32.0 H=36.0 786-4 LOINC RDW-SD 46.2 fL L=39.0 H=49.0 788-0 LOINC PLATELET COUNT 218 th/cmm L=150 H=450 777-[address] STROKE PROTOCOL W CT HEAD * - Completed: 01/07/2024 22:50 LOINC: [facility] [place], [place] [address] RADIOLOGY CHUCK TENDER REPORT Patient Name: SARAH POOL MRN: Sex: : Age: [id number] M 1950 73 Account: Accession: Admit: StayType: [id number] 01/07/2024 E Ordered: Order ID: Submitted: Ordering Provider: 01/07/2024 22:19 [id number] SHASHA LAURE ALBERTS Completed: Technologist: Resulted: 01/07/2024 22:29 MF 01/08/2024 00:08 EXAMINATION: CT STROKE PROTOCOL W CT HEAD CLINICAL HISTORY: Reason for Head: Weakness Lt Lower Extre Add'l Info: TECHNIQUE: CT of head without intravenous contrast. Multiphase CTA of the carotids and [place] of [place] is performed after the administration of 65cc of Omnipaque 350 intravenous contrast. MIP and 3-D volumetric reconstructions were created. COMPARISON: None FINDINGS: Head CT noncontrast: Review of bone windows demonstrates clear appearance visualized mastoid air cells and middle ear cavities. There is mild mucosal thickening left maxillary antrum. The remaining paranasal sinuses are clear. No lytic or blastic disease of the calvarium. There is remodeling and enlargement of the sella with evidence of erosion or lytic change involving the posterior clinoid on the right and posterior wall of the sella. There is a low-attenuation in the caudal aspect of the sella and relative high attenuation in the superior margin of the sella, eccentric to the left. This is best seen on sagittal images 35 through 44 of series 25. There are no cortical infarctions, supra or infratentorial mass lesions, or evidence of posterior fossa or supratentorial hemorrhage. No ventriculomegaly. No mass, mass effect, midline shift or extra-axial collection seen. Skull base soft tissues and orbits are unremarkable. Focal 4 mm nodule left parotid gland superficial lobe, question lymph node.. CTA NECK: Aortic arch and great vessels: Three-vessel arch with normal appearance of arch origins and great vessels. Vertebral arteries: Right vertebral artery origin widely patent. Normal caliber cervical right vertebral artery. Hard plaque at the origin of the left vertebral artery with moderate stenosis. Normal caliber the remainder the cervical left vertebral artery. Right carotid: Normal caliber cervical right common carotid artery to the level of bifurcation. Hard plaque the bifurcation without stenosis. Normal caliber cervical right internal carotid artery. Left carotid: Normal caliber cervical left common carotid artery to the level of bifurcation. Hard plaque the bifurcation without stenosis. There is hard plaque proximal left ICA with mild stenosis, less than 50%. Normal caliber mid and distal cervical left ICA. CTA HEAD: Hard plaque associated with the petrous portion of the ICA bilaterally without hemodynamically significant stenosis. Hard plaque associated with the cavernous and supraclinoid ICA bilaterally. There is no stenosis on the left cavernous and supraclinoid ICA. There is no stenosis involving the right cavernous ICA. Less than 50% stenosis supraclinoid right ICA. Patent anterior cerebral arteries bilaterally with patent anterior communicating artery. Patent bilateral MCA and branches. No focal stenosis, caliber change or aneurysm. Patent appearance of the intracranial portion of the vertebrobasilar system and posterior circulation branches.. IMPRESSION: Head CT noncontrast: Remodeled and the enlarged sella with abnormal high attenuation in the superior left side of the sella. 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 No aneurysm on current CTA.. MRI evaluation recommended. CTA NECK: Moderate origin stenosis left vertebral artery. Atherosclerotic changes in the carotid bifurcation and proximal ICA without significant stenosis CTA HEAD: Intracranial atherosclerotic disease without hemodynamically significant narrowing in the petrous, cavernous and supraclinoid ICA. No focal stenosis, caliber change or aneurysm. No large vessel occlusion. No cavernous region aneurysm Thank you for letting us participate in the care of this patient. If you are a health care provider and have any questions regarding this report, please contact the number below. For patients who have questions please contact the health restorative care technician that requested your imaging first. KNEE 4V LT* - Completed: 01/07/2024 22:50 [facility]: [facility] RADI[facility] [place], [place] [address] RADIOLOGY CHUCK TENDER REPORT Patient Name: SARAH POOL MRN: Sex: : Age: [id number] M 1950 73 Account: Accession: Admit: StayType: [id number] 01/07/2024 E Ordered: Order ID: Submitted: Ordering Provider: 01/07/2024 22:19 [id number] SHASHA LAURE ALBERTS Completed: Technologist: Resulted: 01/07/2024 22:23 MF 01/08/2024 00:12 EXAMINATION: XR KNEE 4V LT CLINICAL HISTORY: Reason for Extrem: Pain Add'l Info: TECHNIQUE: 4 views LEFT knee COMPARISON: None FINDINGS: Medial and lateral compartment chondrocalcinosis. Marginal proliferative changes in the medial compartment. No subarticular abnormality identified. There is mild pointing of the tibial spines. No gross effusion, limited by flexion at the knee greater than standard. Vascular calcification seen. No fracture. . IMPRESSION: No fracture. 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 Thank you for letting us participate in the care of this patient. If you are a health care provider and have any questions regarding this report, please contact the number below. For patients who have questions please contact the health restorative care technician that requested your imaging first. Social History Type Status Start Date End Date Code Code Syst em Smoking History Former smoker 2758373 SNOMED CT Sex Male Vital Signs Vital Sign Value Unit [place] Value [place] Unit Date/Time Recent/Initial? Code Code System Body Mass Index 26.18 kg/m2 01/07/2024 20:35 Initial 11946 -5 LOINC Systolic Blood Pressure 138 mm[Hg] 01/08/2024 00:43 Most Recent 8480- 6 LOINC Diastolic Blood Pressure 80 mm[Hg] 01/08/2024 00:43 Most Recent 8462- 4 LOINC Systolic Blood Pressure 124 mm[Hg] 01/07/2024 20:35 Initial 8480- 6 LOINC Diastolic Blood Pressure 62 mm[Hg] 01/07/2024 20:35 Initial 8462- 4 LOINC Body Surface Area 2.11 m2 01/07/2024 20:35 Initial 3140- 1 LOINC Height 182.880 0 cm 72.00 in 01/07/2024 20:35 Initial 8302- 2 INC O2 Saturation 97 % 2023 00:43 Most Recent 08718 -5 INC O2 Saturation 98 % 2023 20:35 Initial 74079 -5 LOINC Pulse 70.0 /min 01/08/2024 00:43 Most Recent 8867- 4 LOINC Pulse 65.0 /min 01/07/2024 20:35 Initial 8867- 4 LOINC Respiration 18 /min 01/08/20 00:43 Most Recent 9279- 1 INC Respiration 20 /min 01/07/20 20:35 Initial 9279- 1 INC Temperature 37.4 Felipa 99.3 F 01/07/20 20:35 Initial 8310- 5 INC Weight 87.54 kg 193.00 lbs 01/07/2024 20:35 Initial 56844 -7 [facility] Medications Medication Start Date End Date Route Frequency Dose Code Code System Medication Instructions Home Meds carBAMazepine 100MG Oral Capsule, Extended Release 02/19/2024 Unknown ORAL EVERY 12 HOURS 1 CAPSULE 787173 RxNorm TAKE 1 CAPSULE ORAL EVERY 12 HOURS Hospital Discharge Instructions Should you have any questions prior to discharge, please contact a member of your healthcare team. If you have left the hospital and have any questions, please contact your primary care physician. 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
--- OUTSIDE RECORDS SUMMARY | 2024-03-09 16:31 | XMS_ITS ---
Author Organization Unknown Address [address] [place] [address] [phone] Phone Care Team Providers Care Soaker Hides Name Role Phone HAKEEM Benítez Attending Mauri Mast BEAUTY CONSULTANT Unavailable JB Swanson Primary Unavailable Social History Type Status Start Date End Date Code Code Syst em Smoking History Former smoker 4876204 SNOMED CT Sex Male Vital Signs Vital Sign Value Unit [place] Value [place] Unit Date/Time Recent/Initial? Code Code System Systolic Blood Pressure 138 mm[Hg] 02/21/2023 14:04 Initial 8480-6 LOINC Diastolic Blood Pressure 70 mm[Hg] 02/21/2023 14:04 Initial 8462-4 LOINC O2 Saturation 98 % 2022 14:04 Initial 28495- 5 LOINC Pulse 85.0 /min 02/21/2023 14:04 Initial 8867-4 LOINC Respiration 18 /min 02/22/20 14:04 Initial 9279-1 LOINC Temperature 36.0 Felipa 96.8 F 02/22/20 23 14:04 Initial 8310-5 [facility] Medications Medication Start Date End Date Route Frequency Dose Code Code System Medication Instructions Home Meds carBAMazepine 100MG Oral Capsule, Extended Release 02/19/2024 Unknown ORAL EVERY 12 HOURS 1 CAPSULE 193637 RxNorm TAKE 1 CAPSULE ORAL EVERY 12 HOURS Hospital Discharge Instructions Should you have any questions prior to discharge, please contact a member of your healthcare team. If you have left the hospital and have any questions, please contact your primary care physician. 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
--- OUTSIDE RECORDS SUMMARY | 2024-03-09 16:32 | XMS_ITS ---
Author Organization Unknown Address [address] [place] [phone] Phone Care Team Providers Care Oncology Specialist Name Role Phone JB Swanson Attending Unavailable Results XR CHEST 2V PA AND LATERAL - Completed: 03/09/2024 13:11 LOINC: [facility] RADIOLOGY [place], [place] [address] RADIOLOGY WATER RESTORATION TECHNICIAN REPORT Patient Name: SARAH POOL MRN: Sex: : Age: [id number] M 1950 73 Account: Accession: Admit: StayType: [id number] 03/09/2024 O Ordered: Order ID: Submitted: Ordering Provider: 03/09/2024 13:00 [id number] KT CHANCE MUHAMMAD Completed: Technologist: Resulted: 03/09/2024 12:48 LF 03/09/2024 14:23 EXAMINATION: XR CHEST 2V PA AND LATERAL CLINICAL HISTORY: Dyspnea TECHNIQUE: PA and lateral views of the chest COMPARISON: Chest radiograph 02/05/2023 FINDINGS: The cardiomediastinal silhouette is within normal limits. The lungs are clear. No pleural effusion or pneumothorax. Mild degenerative changes of the thoracic spine. Unchanged surgical anchors in humeral heads. IMPRESSION: No acute cardiopulmonary process. Thank you for letting us participate in the care of this patient. If you are a health care provider and have any questions regarding this report, please contact the number below. For patients who have questions please contact the health aged or disabled care worker that requested your imaging first. Social History Type Status Start Date End Date Code Code Syst em Smoking History Former smoker 6309890 SNOMED CT Sex Male Medications Medication Start Date End Date Route Frequency Dose Code Code System Medication Instructions Home Meds carBAMazepine 100MG Oral Capsule, Extended Release 02/19/2024 Unknown ORAL EVERY 12 HOURS 1 CAPSULE 568806 RxNorm TAKE 1 CAPSULE ORAL EVERY 12 [...] Code System DISORDER OF PROLACTIN 02/05/2023 resolved 6594655 09 SNOMED-CT HYPERCHOLESTEROLEMIA 02/05/2023 resolved 61398763 SNOMED-CT DEPRESSION 02/05/2023 resolved 28448768 SNOMED-C T PITUITARY TUMOR 01/07/2024 resolved 439936892 SNO MED-CT Allergies and Adverse Reactions Allergy Substance Reaction Severity Start Date Concern Status Co de Code System CODEINE Vomiting (SNOMED-CT: 833470898) Moderate Active 2670 RxNorm LATEX Hives (SNOMED-CT: 113698974) Moderate Active PENICILLIN Rash (SNOMED-CT: 506247211) Active Plan of Treatment No Data Found Personal Care Team Section Performer Name Performer Role Active Date Inactive Da te Imaging Narrative Notes [facility] RADIOLOGY [place], [place] [address] RADIOLOGY WATER RESTORATION TECHNICIAN REPORT Patient Name: SARAH POOL MRN: Sex: : Age: [id number] M 1950 73 Account: Accession: Admit: StayType: [id number] 03/09/2024 O Ordered: Order ID: Submitted: Ordering Provider: 03/09/2024 13:00 [id number] CHANCE RAMIREZ Completed: Technologist: Resulted: 03/09/2024 12:48 LF 03/09/2024 14:23 EXAMINATION: XR CHEST 2V PA AND LATERAL CLINICAL HISTORY: Dyspnea TECHNIQUE: PA and lateral views of the chest COMPARISON: Chest radiograph 02/05/2023 FINDINGS: The cardiomediastinal silhouette is within normal limits. The lungs are clear. No pleural effusion or pneumothorax. Mild degenerative changes of the thoracic spine. Unchanged surgical anchors in humeral heads.
--- OUTSIDE RECORDS SUMMARY | 2024-03-09 16:32 | XMS_ITS ---
Author Organization Unknown Address [address] [place] [phone] Phone Care Team Providers Care Site Safety Representative Name Role Phone GRICELDA CALDWELL Registered Nurse Unavailable RASHAAD Benítez Attending Unavailable CARLOTA [facility] Unavailable JB Swanson Primary Unavailable UNLISTED PROVIDER - REQUESTED Xhandoff Un available Results C REACTIVE PROTEIN HIGH SENS ITIVITY* - Collect Date/Time: 02/19/2024 09:32 [facility] ID: [id number] [address] [place] [address], [address] LOINC: 34768-1 Test Value Unit Reference Range Code Code System Flag CRP-HIGH SENS. 0.80 mg/L L=0.00 H=3.00 49203-9 LOINC CRP-HIGH SENS 0.08 mg/dL L=0.00 H=0.30 86606-5 LOINC SED RATE* - Collect Date/Jf e: 02/19/2024 09:32 [facility] ID: [id number] [address] [place] [address], [address] LOINC: 4537-7 Test Value Unit Reference Range Code Code System Flag SED. RATE 14 mm/hr L=0 H=20 4537-7 LOINC THYROID TESTING CASCADE* - C ollect Date/Time: 02/19/2024 09:32 [facility] ID: [id number] [address] [place] [address], [address] LOINC: 3016-3 Test Value Unit Reference Range Code Code System Flag TSH. 2.569 uIU/mL L=0.360 H=3.740 3014-8 [facility] COMPREHENSIVE METABOLIC PANE L (CMP) - Collect Date/Time: 02/19/2024 09:32 [facility] ID: [id number] [address] [place], [place], [address] LOINC: 85505-5 Test Value Unit Reference Range Code Code System Flag GLUCOSE 87 mg/dL L=70 H=116 2345-7 LOINC BUN 19 mg/dL L=6 H=25 3094-0 LOINC CREATININE 0.82 mg/dL L=0.67 H=1.17 2160-0 LOINC SODIUM SERUM 142 mmol/L L=136 H=145 2951-2 LOINC POTASSIUM SERUM 4.4 mmol/L L=3.4 H=5.2 2823-3 LOINC CHLORIDE SERUM 106 mmol/L L=96 H=110 2075-0 LOINC CARBON DIOXIDE (CO2) 27 mmol/L L=22 H=34 2028-9 LOINC ANION GAP 8.6 mmol/L 68058-3 LOINC CALCIUM SERUM 9.8 mg/dL L=8.2 H=10.2 23970-3 LOINC BILIRUBIN TOTAL 0.5 mg/dL L=0.0 H=1.3 1975-2 LOINC ALK. PHOS. 83 U/L L=46 H=116 6768-6 LOINC SGOT (AST) 26 U/L L=15 H=37 1920-8 LOINC SGPT (ALT) 37 U/L L=12 H=78 1742-6 LOINC TOTAL PROTEIN 7.1 gm/dL L=6.0 H=8.0 2885-2 LOINC ALBUMIN 3.5 gm/dL L=3.4 H=5.0 1751-7 [facility] AGE 73 years eGFR (non-Afr.Amer.) 92 mL/min 36888-9 [facility] eGFR (Afr-Nauruan) 111 mL/min 27950-5 [facility] CBC W/ DIFFERENTIAL* - Colle ct Date/Time: 02/19/2024 09:32 [facility] ID: [id number] [address] [place], [place], [address] LOINC: 43709-2 Test Value Unit Reference Range Code Code System Flag WBC 8.46 th/cmm L=5.00 H=10.00 6690-2 LOINC NEUT % 70.7 % L=40.0 H=80.0 LYMPH % 20.6 % L=10.0 H=50.0 MONO % 6.0 % L=2.0 H=12.0 49070-3 LOINC EOS % 1.8 % L=0.0 H=8.0 BASO % 0.7 % L=0.0 H=3.0 IG % 0.2 % L=0.0 H=1.1 2514-8 LOINC NRBC % 0.0 % L=0.0 H=0.0 13944-2 LOINC NEUT abs count 6.0 th/cmm L=1.6 H=8.4 751-8 LOINC LYMPH abs count 1.7 th/cmm L=1.5 H=4.0 731-0 LOINC MONO abs count 0.5 th/cmm L=0.2 H=1.0 742-7 LOINC EOS abs count 0.2 th/cmm L=0.0 H=0.5 711-2 LOINC BASO abs count 0.1 th/cmm L=0.0 H=0.2 704-7 LOINC IG abs count 0.0 th/cmm L=0.0 H=0.1 65152-4 LOINC NRBC abs count 0.0 mil/cmm L=0.0 H=0.0 30606-2 LOINC RBC 4.55 mil/cmm L=4.30 H=6.20 789-8 LOINC HEMOGLOBIN 13.8 gm/dL L=13.0 H=17.0 718-7 LOINC HEMATOCRIT 43 % L=45 H=52 4544-3 LOINC L MCV 94 fL L=82 H=92 787-2 LOINC H MCH 30.3 pg L=27.0 H=31.0 785-6 LOINC MCHC 32.4 % L=32.0 H=36.0 786-4 LOINC RDW-SD 48.5 fL L=39.0 H=49.0 788-0 LOINC PLATELET COUNT 252 th/cmm L=150 H=450 777-3 LOINC MR BRAIN WWO CONTRAST - Comp leted: 02/19/2024 12:12 LOINC: [facility] RADIOLOGY [place], [place] [address] RADIOLOGY CALL CENTER ANALYST REPORT Patient Name: SARAH POOL MRN: Sex: : Age: [id number] M 1950 73 Account: Accession: Admit: StayType: [id number] 02/19/2024 E Ordered: Order ID: Submitted: Ordering Provider: 02/19/2024 10:59 [id number] WILFRED BURNETT Completed: Technologist: Resulted: 02/19/2024 11:19 MLL 02/19/2024 14:09 EXAMINATION: MR BRAIN WWO CONTRAST CLINICAL HISTORY: Reason MRI Head: LEFT EYE PAIN Add'l Info: PITUITARY ADENOMA TECHNIQUE: MRI of the brain was performed before and after the intravenous administration of 18cc Dotarem. COMPARISON: CT head and CTA head and neck 01/07/2024 MRI brain 06/19/2009 FINDINGS: A 1.4 x 0.7 x 0.9 cm hypoenhancing lesion along the right inferior aspect of the sella is not grossly changed in size compared to prior CT of 01/07/2024 allowing for differences in technique. There is associated remodeling and enlargement of the sella. No suprasellar extension or compression of the optic chiasm. Right-sided cavernous sinus involvement is noted, primarily posteriorly. Flow voids are maintained within the intracranial carotid arteries. No gross orbital soft tissue abnormality. Asymmetric dental susceptibility artifact noted throughout the left orbit and facial tissues. No other masses or abnormal enhancement. Multiple subcortical and periventricular white matter T2 hyperintense nonenhancing foci, nonspecific and likely representing chronic small vessel ischemic disease. No other signal abnormalities. No abnormal restricted diffusion or susceptibility weighted abnormality. The orbits and globes are normal. Mild mucosal thickening of the left maxillary sinus. The paranasal sinuses and mastoid air cells are otherwise clear. IMPRESSION: 1. 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 No suprasellar extension or involvement of the optic chiasm. 2. No acute intracranial process. Thank you for letting us participate in the care of this patient. If you are a health care provider and have any questions regarding this report, please contact the number below. For patients who have questions please contact the health foster care case manager that requested your imaging first. Electronically signed by: Mario Lujan DO [facility] ([phone]), at 02/19/2024 2:09 PM Social History Type Status Start Date End Date Code Code Syst em Smoking History Former smoker 9872279 SNOMED CT Sex Male Vital Signs Vital Sign Value Unit Bessemer Value Bessemer Unit Date/Time Recent/Initial? Code Code System Body Mass Index 26.08 kg/m2 02/19/2024 09:17 Initial 55190 -5 LOINC Systolic Blood Pressure 144 mm[Hg] 02/19/2024 13:26 Most Recent 8480- 6 LOINC Diastolic Blood Pressure 126 mm[Hg] 02/19/2024 13:26 Most Recent 8462- 4 LOINC Systolic Blood Pressure 149 mm[Hg] 02/19/2024 09:17 Initial 8480- 6 LOINC Diastolic Blood Pressure 90 mm[Hg] 02/19/2024 09:17 Initial 8462- 4 LOINC Body Surface Area 2.06 m2 02/19/2024 09:17 Initial 3140- 1 LOINC Height 180.340 0 cm 71.00 in 02/19/2024 09:17 Initial 8302- 2 LOINC O2 Saturation 100 % 2023 13:26 Most Recent 94023 -5 LOINC O2 Saturation 100 % 2023 09:17 Initial 26415 -5 LOINC Pulse 109.0 /min 02/19/2024 13:26 Most Recent 8867- 4 LOINC Pulse 99.0 /min 02/19/2024 09:17 Initial 8867- 4 LOINC Respiration 18 /min 02/19/20 13:26 Most Recent 9279- 1 LOINC Respiration 18 /min 02/19/20 09:17 Initial 9279- 1 LOINC Temperature 36.4 Felipa 97.5 F 02/19/20 13:26 Most Recent 8310- 5 LOINC Temperature 36.1 Felipa 97.0 F 02/19/20 09:17 Initial 8310- 5 LOINC Weight 84.82 kg 187.00 lbs 02/19/2024 09:17 Initial 85862 -7 LOINC Medications Medication Start Date End Date Route Frequency Dose Code Code System Medication Instructions Home Meds carBAMazepine 100MG Oral Capsule, Extended Release 02/19/2024 Unknown ORAL EVERY 12 HOURS 1 CAPSULE 042216 RxNorm TAKE 1 CAPSULE ORAL EVERY 12 [...] Code System DISORDER OF PROLACTIN 02/05/2023 resolved 7804070 09 SNOMED-CT HYPERCHOLESTEROLEMIA 02/05/2023 resolved 74010403 SNOMED-CT DEPRESSION 02/05/2023 resolved 74806263 SNOMED-C T PITUITARY TUMOR 01/07/2024 resolved 469524756 SNO MED-CT Allergies and Adverse Reactions Allergy Substance Reaction Severity Start Date Concern Status Co de Code System CODEINE Vomiting (SNOMED-CT: 023600251) Moderate Active 2670 RxNorm LATEX Hives (SNOMED-CT: 981081938) Moderate Active PENICILLIN Rash (SNOMED-CT: 520205395) Active Plan of Treatment No Data Found Encounters Encounter Diagnosis Start Date Code Code Sys tem Trigeminal neuralgia 02/19/2024 03283267 SNOMED- CT Personal Care Team Section Performer Name Performer Role Active Date Inactive Da grupo
[2024-03-09 16:35] LABS: Iron 69 ug/dL (65-175); Total Iron Binding Capacity 310 ug/dL (250-450); Transferrin Sat 22 % (20-55)
[2024-03-09 23:17] LABS: PSA, Screening 0.1 ng/mL (<=6.5)
== END 2024-03-09 16:26 | disposition home or self-care (01) ==
LOC: NCHCN 16:25
PROVIDERS: PCP Nurse Practitioner Family; Visit Provider Nurse Practitioner Family
DX: E78.5 Hyperlipidemia, unspecified (principal); Z12.5 Encounter for screening for malignant neoplasm of prostate
CPT/HCPCS: 80053; 80061; 84153; 82607; 82728; 82746; 83540; 83550; 85025; 85045

== ENCOUNTER 2024-04-07 22:14 | Outpatient (REF) | payer MEDICARE, SELFPAY ==
[2024-04-07 21:45] LABS: Abs Immature Grans 0.02 10^3/uL (0.0-0.06); Absolute Basophil Count 0.07 10^3/uL (0.0-0.2); Absolute Eosinophil Count 0.23 10^3/uL (0.0-0.7); Absolute Lymphocyte Count 1.07 10^3/uL (1.2-3.4); Absolute Monocyte Count 0.57 10^3/uL (0.1-0.8); Absolute Neutrophil Count 4.03 10^3/uL (1.2-6.7); Basophils % 1.2 %; Eosinophils % 3.8 %; HCT 40.1 % (40.0-50.0); HGB 12.8 g/dL (13.5-17.5); Immature Grans % 0.3 %; Lymphocytes % 17.9 %; MCHC 31.9 % (32.0-36.0); MCV 94 fL (80-95); Monocytes % 9.5 %; Neutrophils % 67.3 %; Platelet Count 214 10^3/uL (130-400); RBC 4.26 10^6/uL (4.36-5.78); RDW-SD 48.5 fL; WBC 5.99 10^3/uL (4.4-10.8)
[2024-04-07 21:49] LABS: Anion Gap 9.5 mmol/L (3-11); BUN 19 mg/dL (7-18); CO2 25.5 mmol/L (21.0-32.0); CREATININE 0.7 mg/dL (0.70-1.30); Chloride 108 mmol/L (98-107); Estimated GFR 97.29 (mL/min/1.73m2); Glucose 89 mg/dL (74-106); Potassium 4.3 mmol/L (3.5-5.1); Sodium 143 mmol/L (136-145)
== END 2024-04-07 22:15 | disposition home or self-care (01) ==
LOC: NCHCN 22:14
PROVIDERS: PCP Nurse Practitioner Family; Visit Provider Nurse Practitioner Family
DX: R10.9 Unspecified abdominal pain (principal)
CPT/HCPCS: 80048; 85025

== ENCOUNTER 2024-04-14 13:54 | Outpatient (REF) | payer MEDICARE, SELFPAY ==
[2024-04-16 14:37] LABS: Helicobacter pylori Ag, Feces Negative (Negative)
== END 2024-04-14 13:55 | disposition home or self-care (01) ==
LOC: NCHCN 13:54
PROVIDERS: PCP Nurse Practitioner Family; Visit Provider Nurse Practitioner Family
DX: R10.9 Unspecified abdominal pain (principal)
CPT/HCPCS: 87338

== ENCOUNTER 2024-04-27 09:32 | Outpatient (REF) | payer MEDICARE, SELFPAY ==
[2024-04-27 15:26] LABS: Anion Gap 10.7 mmol/L (3-11); BUN 21 mg/dL (7-18); CO2 24.3 mmol/L (21.0-32.0); CREATININE 0.9 mg/dL (0.70-1.30); Calcium 9.2 mg/dL (8.5-10.1); Chloride 109 mmol/L (98-107); Estimated GFR 90.18 (mL/min/1.73m2); Glucose 94 mg/dL (74-106); Magnesium 1.9 mg/dL (1.8-2.4); Potassium 4.1 mmol/L (3.5-5.1); Sodium 144 mmol/L (136-145)
== END 2024-04-27 09:33 | disposition home or self-care (01) ==
LOC: NCHCN 09:32
PROVIDERS: PCP Nurse Practitioner Family; Visit Provider Nurse Practitioner Family
DX: R18.8 Other ascites (principal)
CPT/HCPCS: 80048; 83735

== ENCOUNTER 2024-06-21 14:19 | Outpatient (REF) | payer MEDICARE, SELFPAY ==
[2024-06-21 21:01] LABS: HCT 42.3 % (40.0-50.0); HGB 13.8 g/dL (13.5-17.5); MCH 28.4 pg (27.0-33.0); MCHC 32.6 % (32.0-36.0); MCV 87 fL (80-95); MPV 10.6 fL (8.0-11.0); Platelet Count 257 10^3/uL (130-400); RBC 4.86 10^6/uL (4.36-5.78); RDW 14.7 % (11.8-14.1); RDW-SD 46.3 fL; WBC 8.91 10^3/uL (4.4-10.8)
[2024-06-21 21:40] LABS: ALT 69 U/L (16-63); AST 54 U/L (15-37); Albumin 3.2 g/dL (3.4-5.0); Alkaline Phosphatase 114 U/L (46-116); Anion Gap 7.6 mmol/L (3-11); BUN 17 mg/dL (7-18); Bilirubin, Total 0.71 mg/dL (0.2-1.0); CO2 30.4 mmol/L (21.0-32.0); CREATININE 1.1 mg/dL (0.70-1.30); Chloride 104 mmol/L (98-107); Estimated GFR 70.88 (mL/min/1.73m2); Folate 17.9 ng/mL (8.6-20.0); Glucose 74 mg/dL (74-106); Sodium 142 mmol/L (136-145); Total Protein 6.9 g/dL (6.4-8.2); Vitamin B12 1115 pg/mL (193-986)
[2024-06-23 11:52] LABS: IgA 305 mg/dL (85-499); Interpretation (See Note); Tissue Transglutaminase IgA 32.4 CU (<20.0)
== END 2024-06-21 14:20 | disposition home or self-care (01) ==
LOC: NCHCN 14:19
PROVIDERS: PCP Nurse Practitioner Family; Visit Provider Nurse Practitioner Family
DX: I48.91 Unspecified atrial fibrillation (principal)
CPT/HCPCS: 80053; 82784; 83516; 85027; 82607; 82746

== ENCOUNTER 2024-07-14 15:38 | Outpatient (REF) | payer MEDICARE, SELFPAY ==
[2024-07-14 21:11] LABS: HCT 46.6 % (40.0-50.0); HGB 14.7 g/dL (13.5-17.5); MCH 27.8 pg (27.0-33.0); MCHC 31.5 % (32.0-36.0); MCV 88 fL (80-95); MPV 10.9 fL (8.0-11.0); Platelet Count 241 10^3/uL (130-400); RBC 5.29 10^6/uL (4.36-5.78); RDW 15.6 % (11.8-14.1); RDW-SD 50.5 fL; WBC 5.65 10^3/uL (4.4-10.8)
[2024-07-14 21:32] LABS: ALT 104 U/L (16-63); AST 66 U/L (15-37); Albumin 3.6 g/dL (3.4-5.0); Alkaline Phosphatase 114 U/L (46-116); Anion Gap 5.6 mmol/L (3-11); BUN 18 mg/dL (7-18); Bilirubin, Total 0.44 mg/dL (0.2-1.0); CO2 30.4 mmol/L (21.0-32.0); CREATININE 0.9 mg/dL (0.70-1.30); Calcium 11.2 mg/dL (8.5-10.1); Chloride 106 mmol/L (98-107); Estimated GFR 90.18 (mL/min/1.73m2); Glucose 92 mg/dL (74-106); NT-proBNP 1363 pg/mL (<300); Potassium 4.9 mmol/L (3.5-5.1); Sodium 142 mmol/L (136-145); Total Protein 7.3 g/dL (6.4-8.2)
== END 2024-07-14 15:39 | disposition home or self-care (01) ==
LOC: NCHCN 15:38
PROVIDERS: PCP Nurse Practitioner Family; Visit Provider Nurse Practitioner Family
DX: I50.9 Heart failure, unspecified (principal)
CPT/HCPCS: 80053; 85027; 83880

== ENCOUNTER 2024-08-11 13:53 | Outpatient (REF) | payer MEDICARE, SELFPAY ==
[2024-08-11 21:39] LABS: NT-proBNP 1508 pg/mL (<300)
[2024-08-12 22:13] LABS: Campylobacter PCR Negative (Negative); Salmonella PCR Negative (Negative); Shiga Toxin PCR Negative (Negative); Shigella/Enteroinvasive Ecoli Negative (Negative)
[2024-08-13 13:03] LABS: Helicobacter pylori Ag, Feces Negative (Negative)
[2024-08-15 13:38] LABS: Giardia Ag, F Negative (Negative)
[2024-08-15 13:41] LABS: Cryptosporidium, F Negative (Negative)
== END 2024-08-11 13:54 | disposition home or self-care (01) ==
LOC: NCHCN 13:53
PROVIDERS: PCP Nurse Practitioner Family; Visit Provider Nurse Practitioner Family
DX: R19.7 Diarrhea, unspecified (principal); I25.118 Atherosclerotic heart disease of native coronary artery with other forms of angina pectoris
CPT/HCPCS: 87328; 87329; 87338; 87505; 83880

== ENCOUNTER 2024-09-07 17:18 | Outpatient (REF) | payer MEDICARE, SELFPAY ==
[2024-09-07 21:37] LABS: HCT 42.1 % (40.0-50.0); HGB 13.3 g/dL (13.5-17.5); MCH 28.2 pg (27.0-33.0); MCHC 31.6 % (32.0-36.0); MCV 89 fL (80-95); MPV 11.2 fL (8.0-11.0); Platelet Count 210 10^3/uL (130-400); RBC 4.72 10^6/uL (4.36-5.78); RDW 18.7 % (11.8-14.1); RDW-SD 61.1 fL
[2024-09-07 22:14] LABS: ALT 67 U/L (16-63); AST 45 U/L (15-37); Albumin 3.8 g/dL (3.4-5.0); Alkaline Phosphatase 110 U/L (46-116); Anion Gap 3.9 mmol/L (3-11); BUN 22 mg/dL (7-18); Bilirubin, Total 0.8 mg/dL (0.2-1.0); CO2 30.1 mmol/L (21.0-32.0); CREATININE 0.9 mg/dL (0.70-1.30); Calcium 10.2 mg/dL (8.5-10.1); Calculated LDL 40 mg/dL (<100); Chloride 107 mmol/L (98-107); Cholesterol 99 mg/dL (<200); Digoxin 0.74 ng/mL (0.90-2.00); Estimated GFR 90.18 (mL/min/1.73m2); Ferritin 757 ng/mL (26-388); Glucose 100 mg/dL (74-106); HDL Cholesterol 39 mg/dL (>or=40); Potassium 4.3 mmol/L (3.5-5.1); Sodium 141 mmol/L (136-145); TSH (W/Ref FT4) 1.83 uIU/mL (0.36-3.74); Total Protein 7.1 g/dL (6.4-8.2); Triglyceride 103 mg/dL (<150)
== END 2024-09-07 17:19 | disposition home or self-care (01) ==
LOC: NCHCN 17:18
PROVIDERS: PCP Nurse Practitioner Family; Visit Provider Nurse Practitioner Family
DX: R63.4 Abnormal weight loss (principal); E78.5 Hyperlipidemia, unspecified
CPT/HCPCS: 80053; 80061; 85027; 80162; 82728; 84443

== ENCOUNTER 2024-09-30 13:59 | Outpatient (RCR) | payer MEDICARE, SELFPAY | END 2024-10-16 23:59 | disposition home or self-care (01) | LOC: CR 13:59 | PROVIDERS: PCP Nurse Practitioner Family; Visit Provider Internal Medicine Cardiovascular Disease ==

== ENCOUNTER 2024-10-04 02:43 | Outpatient (CLI) | payer MEDICARE, SELFPAY ==
--- NOTE | 2024-10-04 | DI.MRI_ITS ---
Exam(s) MR BRAIN PITUITARY WO/W EXAM: MR BRAIN PITUITARY WO/W CLINICAL HISTORY: D35.2,F/U Benign neoplasm of pituitary gland TECHNIQUE: Multiplanar multisequence MRI of the brain and pituitary gland was performed. CONTRAST MATERIAL: IV Contrast: 15 mL of Dotarem contrast administered. COMPARISON: MR MR IAC BRAIN WO/W from 11/08/2020 MR MR BRAIN PITUITARY WO/W from 01/03/2021 MR MR BRAIN PITUITARY WO/W from 08/24/2021 MR MR BRAIN WWO CONTRAST from 02/19/2024 Findings: VENTRICLES AND EXTRA AXIAL SPACES: Normal in size and morphology for the patient's age. HEMORRHAGE: None. CEREBRAL PARENCHYMA: No focus of restricted diffusion to suggest acute infarct. No space-occupying le obed identified. Minimal scattered high signal foci in the white matter consistent with microvascula r changes. MIDLINE SHIFT: None. BRAINSTEM/CEREBELLUM: Normal. CALVARIUM: Normal. ENHANCEMENT: No suspicious enhancement identified. VISUALIZED PARANASAL SINUSES/MASTOIDS: Clear. OTHER FINDINGS: None. PITUITARY: Pituitary stalk is mildly deviated toward the left. Stable expansion of the sella is again noted. There is no superior extension. Stable nonenhancing a cindy on the right side of the gland. The optic chiasm is unremarkable. The cavernous portions of both carotid arteries are unremarkable. Impression: Stable appearance of a pituitary macroadenoma. DATA REPOSITORY:
[2024-10-04] MEDS: Gadoterate meglumine 20 ML SYRINGE 15 ML IVP (10:02)
[2024-10-04] MEDS: Normal Saline Flush 10 ML SYR IVP (10:02)
== END 2024-10-04 03:03 ==
PROVIDERS: PCP Nurse Practitioner Family; Visit Provider Nurse Practitioner Family
DX: D35.2 Benign neoplasm of pituitary gland (principal)
CPT/HCPCS: 70553

== ENCOUNTER 2024-10-08 11:02 | Emergency (ER) | payer MEDICARE, SELFPAY ==
[2024-10-08] VITALS (31 sets, daily range): BP systolic 90–159; BP diastolic 50–134; PULSE 55–107; RESP 13–22; TEMP 36.4; O2SAT 85–100
--- NOTE | 2024-10-08 11:00 | RT.EKG_ITS ---
APPROVED REPORT Exam: Resting ECG Reason for Exam: Hx of AFIB; dizziness Patient Location: E HR:75 bpm ECG Measurements Heart Rate 75 AXIS TN 180 P 82 QRSd 146 QRS 90 QT 421 T 31 QTc 470 Conclusion Sinus rhythm...normal P axis, V-rate 60- 99 RBBB and LPFB...QRSd >120mS, axis(90,210) Anterolateral infarct, age indeterminate...Q >35mS, flat/neg T, V3-V6,I,aVL
[2024-10-08 11:42] LABS: Abs Immature Grans 0.03 10^3/uL (0.0-0.06); Absolute Basophil Count 0.04 10^3/uL (0.0-0.2); Absolute Eosinophil Count 0.13 10^3/uL (0.0-0.7); Absolute Lymphocyte Count 0.93 10^3/uL (1.2-3.4); Absolute Monocyte Count 0.29 10^3/uL (0.1-0.8); Absolute Neutrophil Count 5.73 10^3/uL (1.2-6.7); Basophils % 0.6 %; Eosinophils % 1.8 %; HCT 41.9 % (40.0-50.0); HGB 13.5 g/dL (13.5-17.5); Immature Grans % 0.4 %; MCH 28.5 pg (27.0-33.0); MCHC 32.2 % (32.0-36.0); MCV 88 fL (80-95); MPV 10.3 fL (8.0-11.0); Monocytes % 4.1 %; Neutrophils % 80.1 %; Platelet Count 274 10^3/uL (130-400); RBC 4.74 10^6/uL (4.36-5.78); RDW 17.8 % (11.8-14.1); RDW-SD 58.2 fL; WBC 7.15 10^3/uL (4.4-10.8)
[2024-10-08 11:50] LABS: ALT 104 U/L (16-63); AST 61 U/L (15-37); Albumin 4.2 g/dL (3.4-5.0); Alkaline Phosphatase 110 U/L (46-116); Anion Gap 6.5 mmol/L (3-11); BUN 24 mg/dL (7-18); Bilirubin, Total 0.8 mg/dL (0.2-1.0); CO2 30.5 mmol/L (21.0-32.0); CREATININE 0.9 mg/dL (0.70-1.30); Calcium 11.5 mg/dL (8.5-10.1); Chloride 101 mmol/L (98-107); Estimated GFR 89.62 (mL/min/1.73m2); Glucose 109 mg/dL (74-106); Potassium 4.1 mmol/L (3.5-5.1); Sodium 138 mmol/L (136-145); Total Protein 7.9 g/dL (6.4-8.2); Troponin I 15 ng/L (<or=76)
--- NOTE | 2024-10-08 12:50 | DI.RAD_ITS ---
Exam(s) XR CHEST 2V PA LATERAL EXAM: XR CHEST 2V PA LATERAL CLINICAL HISTORY: dizzy TECHNIQUE: 2D digital imaging was performed. Two views. COMPARISON: CR CHEST 2 VIEWS PA,LAT from 02/20/2012 FINDINGS: HEART: Normal size. Aorta: Not dilated. PULMONARY VASCULATURE: Normal. MEDIASTINUM: Unremarkable. LUNGS: Clear. PLEURAL SPACE: No pleural effusion or pneumothorax. BONE:Degenerative changes in the thoracic spine. Bilateral shoulder surgery. SOFT TISSUES: Skin fold projecting over the right upper lobe. IMPRESSION: No acute abnormality. DATA REPOSITORY: RADIATION DOSE DELIVERED:
[2024-10-08 12:57] LABS: Troponin I 13 ng/L (<or=76)
--- NOTE | 2024-10-08 13:04 | ED.GENADUL_ITS ---
Discharge Plan Disposition Patient Disposition: Home Condition: Stable Discharge Details Chief Complaint: Arrhythmia Clinical Impression: Hypovolemia, Dizziness Primary Care Provider: Phuong Gar ED Provider: Devin Guerra Discharge Instructions Instructions: Near Fainting, Dehydration, Adult ED Additional Instructions: Please take medications as prescribed. Please talk with your men's designer about Lasix dosing. I suspect today you were too dehydrated from Lasix and overexertion working on the house. You were given IV fluid bolus today and your symptoms improved dramatically. Lab test today were nondiagnostic. Please follow-up with your primary care physician. Call today. Return to the emergency department immediately for any worsening or new concerning symptoms. Referrals: Phuong Gar [Primary Care Provider] - [facility] General Mode of arrival: ambulatory . Date/Time Provider Initiated Documentation: 10/08/24 11:07 . Limitations to Documentation: no limitations . Information obtained by: patient and family . HPI Narrative: 74-year-old male with multiple medical problems including atrial fibrillation, on amiodarone, CHF, pituitary mass, here with chief complaint of lightheadedness. Patient performs some light exertional activities outside working on the house yesterday and subsequently developed generalized fatigue and lightheadedness. Patient notes that when he stands up he feels dizzy like he is going to pass out. Symptoms worse this morning. His checked his blood pressure and it was lower than typical at 82/53. His normal blood pressure while on medication is systolic in the 90s. He has been taking double dose Lasix over the past 4 days. Patient specifically concerned that he may be in atrial fibrillation. Related Data Allergies Allergy/AdvReac Type Severity Reaction Status Date / Time Latex, Natural Rubber Allergy Mild Other (See Verified 10/08/24 11:12 Comment) Penicillins Allergy Mild Skin Rash Verified 10/08/24 11:12 simvastatin AdvReac Intermediate Other (See Verified 10/08/24 11:12 Comment) General Stated Complaint: Arrhythmia TAE: 3 Review of Systems All systems reviewed & are unremarkable except as noted in HPI and below Constitutional Constitutional: Denies fever(s) Cardiovascular Cardiovascular: Denies chest pain Respiratory Respiratory: Reports as per HPI Exam Const General: cooperative and no acute distress HENMT Mouth: moist mucous membranes Eyes Conjunctivae: normal conjunctivae Sclera: normal sclerae Neck Neck: trachea midline and supple Resp Auscultation: clear to auscultation bilaterally, no rales, no rhonchi and no wheezes Cardio Rate: regular rate and not tachycardic Rhythm: regular rhythm Heart Sounds: murmur systolic II/ GI Palpation: soft, not firm, no guarding, no masses, not rigid and nontender Skin General skin exam: no rashes or lesions noted Neuro General: patient alert, patient awake and tone normal Extrem General: no calf tenderness and no edema Psych Appearance: grossly normal Mental Status: mental status grossly normal Course Vital Signs Vital signs: Vital Signs Temperature 36.4 C 10/08/24 11:04 Pulse 76 10/08/24 11:04 Respiratory Rate 18 10/08/24 11:04 Blood Pressure 90/56 L 10/08/24 11:04 Pulse Oximetry 99 10/08/24 11:04 Temperature 36.4 C 10/08/24 11:04 Temperature Source Oral 10/08/24 11:04 Pulse 61 10/08/24 12:10 Pulse 65 10/08/24 12:10 Respiratory Rate 18 10/08/24 12:10 Blood Pressure 121/62 10/08/24 12:10 Blood Pressure Mean 106 10/08/24 12:08 Blood Pressure Position Sitting 10/08/24 11:04 Pulse Oximetry 98 10/08/24 12:10 Oxygen Delivery Method Room Air 10/08/24 11:04 Oxygen Flow Rate 0 10/08/24 11:04 Pain Level 1 10/08/24 11:04 Lab/Test Results Lab/Test Results: Laboratory Tests Range/Units 10/08/24 10/08/24 11:28 12:28 WBC (4.4-10.8) 10^3/uL 7.15 RBC (4.36-5.78) 10^6/uL 4.74 Hgb (13.5-17.5) g/dL 13.5 Hct (40.0-50.0) % 41.9 MCV (80-95) fL 88 MCH (27.0-33.0) pg 28.5 MCHC (32.0-36.0) % 32.2 RDW (11.8-14.1) % 17.8 H Plt Count (130-400) 10^3/uL 274 MPV (8.0-11.0) fL 10.3 Immature Gran % % 0.4 Neutrophils % % 80.1 Lymphocytes % % 13.0 Monocytes % % 4.1 Eosinophils % % 1.8 Basophils % % 0.6 Nucleated RBC % (0.0-0.3) % 0.0 Absolute Neutrophils (1.2-6.7) 10^3/uL 5.73 Absolute Lymphocytes (1.2-3.4) 10^3/uL 0.93 L Absolute Monocytes (0.1-0.8) 10^3/uL 0.29 Absolute Eosinophils (0.0-0.7) 10^3/uL 0.13 Absolute Basophils (0.0-0.2) 10^3/uL 0.04 Sodium (136-145) mmol/L 138 Potassium (3.5-5.1) mmol/L 4.1 Chloride (98-107) mmol/L 101 Carbon Dioxide (21.0-32.0) mmol/L 30.5 Anion Gap (3-11) mmol/L 6.5 BUN (7-18) mg/dL 24 H Creatinine (0.70-1.30) mg/dL 0.9 Est GFR (CKD-EPI 2020) (mL/min/1.73m2) 89.62 Glucose (74-106) mg/dL 109 H Calcium (8.5-10.1) mg/dL 11.5 H Total Bilirubin (0.2-1.0) mg/dL 0.8 AST (15-37) U/L 61 H ALT (16-63) U/L 104 H Alkaline Phosphatase (46-116) U/L 110 Troponin I (<or=76) ng/L 15 13 Total Protein (6.4-8.2) g/dL 7.9 Albumin (3.4-5.0) g/dL 4.2 Medical Decision Making 1310 --74-year-old male with history of atrial fibrillation, on amiodarone, CHF, on Lasix currently doubled dose over the past 4 days given concern for volume overload, now with lightheadedness that is improved with lying down and worse standing up. Patient did have some exertional activity 2 days ago and symptoms started after this. 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 No STEMI. Orthostatic vital signs normal. I suspect patient is currently deconditioned and that the exertional activity on Friday was too much for him. This combined with increased dose of Lasix is likely led to a hypovolemic state. I will give him some oral fluids and a light 250 bolus of crystalloid. 1430 -- Patient received 1 L of fluid but urinated 700. No signs of volume overload on reassessment. In fact patient notes he is feeling much better with no symptoms. He saturating well in no respiratory distress. Plan for discharge with close outpatient follow-up with cardiology. We di scussed fluid status and not overdoing Lasix. Lab Data Lab results reviewed: Yes I reviewed the patient's lab results. Labs: Laboratory Tests Range/Units 10/08/24 10/08/24 11:28 12:28 WBC (4.4-10.8) 10^3/uL 7.15 RBC (4.36-5.78) 10^6/uL 4.74 Hgb (13.5-17.5) g/dL 13.5 Hct (40.0-50.0) % 41.9 MCV (80-95) fL 88 MCH (27.0-33.0) pg 28.5 MCHC (32.0-36.0) % 32.2 RDW (11.8-14.1) % 17.8 H Plt Count (130-400) 10^3/uL 274 MPV (8.0-11.0) fL 10.3 Immature Gran % % 0.4 Neutrophils % % 80.1 Lymphocytes % % 13.0 Monocytes % % 4.1 Eosinophils % % 1.8 Basophils % % 0.6 Nucleated RBC % (0.0-0.3) % 0.0 Absolute Neutrophils (1.2-6.7) 10^3/uL 5.73 Absolute Lymphocytes (1.2-3.4) 10^3/uL 0.93 L Absolute Monocytes (0.1-0.8) 10^3/uL 0.29 Absolute Eosinophils (0.0-0.7) 10^3/uL 0.13 Absolute Basophils (0.0-0.2) 10^3/uL 0.04 Sodium (136-145) mmol/L 138 Potassium (3.5-5.1) mmol/L 4.1 Chloride (98-107) mmol/L 101 Carbon Dioxide (21.0-32.0) mmol/L 30.5 Anion Gap (3-11) mmol/L 6.5 BUN (7-18) mg/dL 24 H Creatinine (0.70-1.30) mg/dL 0.9 Est GFR (CKD-EPI 2020) (mL/min/1.73m2) 89.62 Glucose (74-106) mg/dL 109 H Calcium (8.5-10.1) mg/dL 11.5 H Total Bilirubin (0.2-1.0) mg/dL 0.8 AST (15-37) U/L 61 H ALT (16-63) U/L 104 H Alkaline Phosphatase (46-116) U/L 110 Troponin I (<or=76) ng/L 15 13 NT-Pro-B Natriuret Pep (<300) pg/mL 160 Total Protein (6.4-8.2) g/dL 7.9 Albumin (3.4-5.0) g/dL 4.2 Quality:SDOH Health Related Social Needs: No Data to Display PFSH All Active Problems (Updated 10/08/24 @ 14:36 by Devin Guerra MD) Dizziness (Acute) Hypovolemia (Acute) Asymmetrical sensorineural hearing loss (Acute) Pituitary mass (Acute) Tinnitus, bilateral (Acute) Sensorineural hearing loss of both ears (Acute) Social History Smoking/Tobacco Use Status: Former Tobacco Use Smoking risk assessment performed?: Yes Alcohol Intake: never Drug use: Never Substance use type: does not use Do you feel safe at home: Yes Do you feel safe in your relationship?: Yes
[2024-10-08] MEDS: Lactated Ringers 250 ML 500 ML IV (13:20)
[2024-10-08 13:51] LABS: NT-proBNP 160 pg/mL (<300)
[2024-10-08 14:49] LABS: Troponin I 15 ng/L (<or=76)
== END 2024-10-08 14:43 | disposition home or self-care (01) ==
PROVIDERS: Emergency Provider Student in an Organized Health Care Education/Training Program; PCP Nurse Practitioner Family
DX: I49.9 Cardiac arrhythmia, unspecified (principal); E86.1 Hypovolemia; I45.2 Bifascicular block; I48.91 Unspecified atrial fibrillation; Z87.891 Personal history of nicotine dependence
CPT/HCPCS: 80053; 93005; 99284; 71046; 83880; 84484; 85025; 93010

== ENCOUNTER 2024-10-17 09:35 | Emergency (ER) | payer MEDICARE, SELFPAY ==
[2024-10-17] VITALS (30 sets, daily range): BP systolic 119–174; BP diastolic 31–97; PULSE 51–76; RESP 10–32; O2SAT 92–100
--- NOTE | 2024-10-17 09:30 | RT.EKG_ITS ---
APPROVED REPORT Exam: Resting ECG Reason for Exam: Heart Condition Patient Location: E HR:68 bpm ECG Measurements Heart Rate 68 AXIS WI 168 P 73 QRSd 143 QRS 88 QT 460 T 30 QTc 489 Conclusion Sinus rhythm, rate 68 RBBB unchanged from priors Otherwsie no interval abnormalities No STEMI
--- NOTE | 2024-10-17 09:45 | DI.CT_ITS ---
Exam(s) CT ABDOMEN PELVIS W EXAM: CT ABDOMEN PELVIS W CLINICAL HISTORY: Abdominal pain and vomiting. TECHNIQUE: Imaging Protocol: Axial computed tomography images with coronal and sagittal reformatted images were created and reviewed CONTRAST MATERIAL: Intravenous: Omnipaque-350 75cc Oral: None COMPARISON: No exams were available for comparison FINDINGS: VISUALIZED LUNG BASES: No nodules nor pleural effusions evident. ABDOMEN: There is no ascites. ANTERIOR ABDOMINAL WALL: There is a midline fat only containing periumbilical hernia. No inguinal he rnias. LIVER: There are no focal hepatic lesions evident. No dilated intrahepatic ducts. GALLBLADDER/BILIARY: Gallbladder is not seen and is presumed to be surgically absent. CBD is not dil ated. PANCREAS: No evidence of pancreatic mass nor dilatation of the pancreatic duct. SPLEEN: Spleen is not enlarged. No obvious intrasplenic lesions. Splenic and portal veins are paten t. ADRENALS: There are no significant adrenal masses. KIDNEYS:No cysts evident. No solid renal masses. No calculi nor hydronephrosis.. ABDOMINAL AORTA: The abdominal aorta is calcified. There is a fusiform infrarenal abdominal aortic a neurysm which exhibits a maximum external diameter of 2.6 cm. Proximal to this the aorta measures 1. 8 cm. The common iliac arteries are calcified but not enlarged. LYMPH NODES:There is no retroperitoneal nor paraaortic adenopathy. ABDOMINAL WALL: No evidence of significant anterior abdominal wall nor inguinal hernia. GI: There is no evidence of bowel obstruction, free air, nor abscess. PELVIS: GI: No evidence of appendicitis.There are diverticuli in the left side of the colon and sigmoid witho ut evidence of obvious acute diverticulitis. LYMPH NODES: There is no intrapelvic nor inguinal adenopathy. REPRODUCTIVE: Prostate size upper normal. Seminal vesicles unremarkable. There is a tiny amount of free fluid in the dependent aspect of the right-side of the pelvis adjacent to the right side of the rectum. URINARY BLADDER: No calculi nor obvious masses evident OSSEOUS: Significant degenerative changes in both hips. No fractures in the field of view of this st udy. No lytic nor blastic osseous lesions. Significant disc space narrowing at L4-5 level. No listhesis. There is, however, significant spinal canal stenosis at a few levels. IMPRESSION: 1. There is diverticulosis of the left side of the colon and sigmoid. Although there is no obvious a cute diverticulitis, there is a small amount of fluid in the right-side of the most dependent aspect of the pelvis in this male patient. Cannot exclude subtle diverticulitis. 2. Midline small fat only containing umbilical hernia. No evidence of bowel obstruction. 3. Mild fusiform infrarenal abdominal aortic aneurysm with maximum diameter of 2.6 cm. No significan t iliac artery aneurysms. 4. Degenerative changes both hips. The level lumbar spinal canal stenosis. RADIATION DOSE DELIVERED: 414.85mGy.cm Total DLP DATA REPOSITORY: All CT scans at this facility are submitted to the National Radiology Data Registry (NRDR) Dose Index Registry (DIR) with the [employer] (A[employer]). RADIATION OPTIMIZATION: All CT scans at this facility use at least one of these dose optimization te chniques: automated exposure control; mA and/or kV adjustment per patient size (includes targeted exa ms where dose is matched to clinical indication); or iterative reconstruction.
--- NOTE | 2024-10-17 09:56 | W.ED.GENAD ---
Discharge Plan Disposition Patient Disposition: Home Condition: Stable Discharge Details Clinical Impression: Nausea & vomiting, Hypercalcemia, Dehydration symptoms Primary Care Provider: Phuong Gar ED Provider: Sandi Sorto Home Meds and New Rx's Prescriptions: New ondansetron 4 mg tablet,disintegrating 4 mg PO Q8H PRNQty: 10 0RF No Action furosemide 40 mg tablet 40 mg PO DAILY Patient Comments: TAKE 1 TABLET BY MOUTH EVERY DAY atorvastatin 80 mg tablet 80 mg PO DAILY amiodarone 200 mg tablet 200 mg PO DAILY Patient Comments: TAKE 2 TABLETS DAILY FOR 7 DAYS THEN REDUCE DOSE TO 1 TABLET DAILY UNTIL FOLLOW UP sertraline 100 mg tablet 150 mg PO DAILY clopidogrel 75 mg tablet 75 mg PO DAILY cabergoline 0.5 mg tablet 0.5 mg PO DIRECTED Rx Instructions: mon and fri omeprazole 20 mg capsule,delayed release(DR/EC) 20 mg PO DAILY Eliquis 5 mg tablet 5 mg PO BID Discharge Instructions Instructions: Nausea and Vomiting, Adult ED Additional Instructions: You were seen in the emergency department today for evaluation of epigastric abdominal pain, nausea with vomiting and diarrhea. In our department you had a full physical examination performed, had a reassuring EKG, negatove cardiac enzymes, and laboratory studies that were most notable for an elevated calcium, for which you are following with endocrinology, a slightly elevated lactate that we often see in somebody who is dehydrated, and some increase in your liver enzymes. We did a CT scan of your abdomen that did not show any obvious liver abnormalities, nor other signs of abnormalities like appendicitis, bowel obstruction, or diverticulitis that might help us explain your symptoms. Unfortunately, we are sometimes unable to determine the exact cause of symptoms in the emergency department setting. You did receive IV fluids for rehydration, and medicine for nausea to good effect. I do recommend that you follow-up with your outpatient providers within the next few days to discuss this visit and any symptoms that change, worsen, or persist. You are also welcome to go to another emergency department for reevaluation, or can return here especially if your symptoms change, worsen, or you develop new symptoms such as chest pain, shortness of breath, or change in mental status. Thank you for allowing us to be part of your care. HPI General Mode of arrival: ambulatory. Date/Time Provider Initiated Documentation: 10/17/24 09:36. Limitations to Documentation: no limitations. Information obtained by: patient, family and old records reviewed. HPI Narrative: This is a 74-year-old male patient with a past medical history significant for heart failure, atrial fibrillation on amiodarone, presenting for evaluation of nausea with vomiting and diarrhea as well as epigastric abdominal pain. The patient reports that the symptoms have been present for 3 days, he has had vomiting and has had decreased p.o. intake. States that he had an episode of diarrhea today, and his abdominal pain is worsening. No one else in his home has been sick with similar symptoms. He states that his symptoms seem to be intermittent in nature, he has not identified any propagating or palliating features, describes some soreness in his neck from vomiting as well as some dizziness, which is described as lightheadedness and not vertigo. 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 He has a history of carrying fluid in his abdomen with some ascites, did have a workup that was negative for cancer previously. He has lost approximately 2 pounds this week, and has not had any worsening of his baseline shortness of breath on exertion, peripheral edema. He has a history of hypercalcemia and was referred to endocrinology to evaluate him for hyperparathyroidism. Related Data Home Medications ?Medication ?Instructions ?Recorded ?Confirmed amiodarone 200 mg tablet 200 mg PO DAILY 10/17/24 10/17/24 apixaban 5 mg tablet (Eliquis) 5 mg PO BID 10/17/24 10/17/24 atorvastatin 80 mg tablet 80 mg PO DAILY 10/17/24 10/17/24 cabergoline 0.5 mg tablet 0.5 mg PO DIRECTED 10/17/24 10/17/24 clopidogrel 75 mg tablet 75 mg PO DAILY 10/17/24 10/17/24 furosemide 40 mg tablet 40 mg PO DAILY 10/17/24 10/17/24 omeprazole 20 mg capsule,delayed 20 mg PO DAILY 10/17/24 10/17/24 release ondansetron 4 mg disintegrating 4 mg PO Q8H PRN #10 tabs 10/17/24 tablet sertraline 100 mg tablet 150 mg PO DAILY 10/17/24 10/17/24 Previous Rx's ?Medication ?Instructions ?Recorded ondansetron 4 mg disintegrating 4 mg PO Q8H PRN #10 tabs 10/17/24 tablet Allergies Allergy/AdvReac Type Severity Reaction Status Date / Time Latex, Natural Rubber Allergy Mild Other (See Verified 10/17/24 09:45 Comment) Penicillins Allergy Mild Skin Rash Verified 10/17/24 09:45 simvastatin AdvReac Intermediate Other (See Verified 10/17/24 09:45 Comment) General Stated Complaint: Abd Prob TAE: 3 Exam Narrative Exam Narrative: Gen: Awake and alert, appears uncomfortable and tearful HEENT: Non-icteric sclera, PERRL, EOMs full without nystagmus Neck: Supple Lungs: No apparent respiratory distress, normal respiratory effort. Lung sounds clear and equal bilaterally CV: Appears well perfused, heart with Regular rate and rhythm, no murmurs auscultated, strong distal pulses Abdomen: Non-distended, soft, tender to palpation in the left upper and epigastric region, no rigidity, rebound, or guarding MSK: Moves 4 extremities without apparent limitation in ROM. No peripheral edema, no unilateral calf swelling Skin: Visualized skin without rashes, cyanosis. Neuro: Normal Gait, no obvious focal deficits or facial asymmetry. Speaks in full, clear sentences. Psych: Appropriate for situation. Course Vital Signs Vital signs: Vital Signs Pulse 73 10/17/24 09:40 Respiratory Rate 20 10/17/24 09:40 Blood Pressure 159/76 H 10/17/24 09:40 Pulse Oximetry 98 10/17/24 09:40 Temperature Source Tympanic 10/17/24 09:40 Pulse 73 10/17/24 09:40 Respiratory Rate 20 10/17/24 09:40 Blood Pressure 159/76 H 10/17/24 09:40 Blood Pressure Position Sitting 10/17/24 09:40 Pulse Oximetry 98 10/17/24 09:40 Oxygen Delivery Method Room Air 10/17/24 09:40 Oxygen Flow Rate 0 10/17/24 09:40 Pain Level 3 10/17/24 09:40 Medical Decision Making This is a 74-year-old male patient presenting for evaluation of epigastric abdominal pain, nausea, vomiting, and diarrhea. My differential includes but is not limited to gastritis, gastroenteritis, pancreatitis, hepatitis, cholecystitis, appendicitis, diverticulitis, bowel obstruction. Considered mesenteric ischemia and aortic pathology, though these are less consistent with the patient's history and physical examination. Considered urinary tract infection, kidney stones. Considered metabolic and electrolyte derangements, kidney injury, anemia, dehydration. Considered ACS, though the patient is reassuringly chest pain-free at this time. I reviewed the patient's EKG, which shows a right bundle branch block unchanged from priors, sinus rhythm with otherwise regular rate and no evidence for acute ischemia. We will obtain laboratory studies to include CBC, CMP, magnesium, lactate, lipase, urinalysis, and troponin. We will obtain a CT of the abdomen and pelvis to better characterize any abnormalities which might explain the patient's symptoms. I will provide the patient with a dose of Zofran for initial management of his symptoms. -I reviewed the patient's laboratory studies, which show no leukocytosis, anemia, or thrombocytopenia. I do note that his lactate is 2.5, and in the setting of GI fluid losses provided him with a liter of IV fluids for rehydration. Chemistry panel is without electrolyte derangements other than elevated calcium to 12.2. No kidney dysfunction appreciated, patient does have a slight elevation in his transaminases and bilirubin to 1.4. Initial troponin is negative at 20, 1 hour delta repeat at 16, which is less concerning for active ischemia. Lipase is low. Urinalysis with some ketones, no infectious findings. CT scan reviewed by myself, and I reviewed the radiology read. The patient has no evidence of interval increase in his ascites, and infectious has a small trace amount of free fluid in the pelvis at this time. He had no evidence of bowel obstruction, has diverticulosis without diverticulitis, and otherwise was without acute abnormalities identified to explain his symptoms today. I am most concerned for gastroenteritis given the constellation of symptoms, and discussed the findings with the patient and his family member. They are concerned about his ongoing symptoms as well as the management of his heart failure, which they are concerned is contributing to the patient's symptoms today. I did not note any evidence of increasing fluid on his body, evidence of pulmonary edema on the portion of lungs visualized on the CT scan, but do feel that given the patient's need for rehydration now twice in the emergency department in the last week that he will require more aggressive management of his diuresis to ensure that he remains euvolemic. The patient and his family are interested in receiving care at a tertiary care center in [place], so that all of his specialists can be involved and they can attempt to find a unifying diagnosis for his ongoing symptoms. I reaffirmed their ability to seek care anywhere that they want, and did recommend that he continues to be in touch with his active outpatient providers including his software test automation engineer to ensure that all ongoing studies for his remaining symptoms are completed. At this time, I do not see that there is an indication for emergent ED to ED transfer based on the symptoms and workup that I have conducted here. On reassessment, the patient reports that his nausea has resolved, and he feels much improved. I did provide him with a take-home course of Zofran to ensure that he has ongoing nausea control so he can maintain his hydration in the outpatient environment. The patient and his family had an opportunity to have all questions answered, and at this time, the patient has had a full medical evaluation and is safe for discharge to home. They are hemodynamically stable, ambulatory, and tolerating PO. They are understanding of the follow-up plan and return precautions. They left our facility without incident. Sandi Sorto MD Quality:SDOH Health Related Social Needs: No Data to Display PFSH All Active Problems (Updated 10/17/24 @ 12:06 by Sandi Sorto MD) Dehydration symptoms (Acute) Hypercalcemia (Acute) Nausea & vomiting (Acute) Dizziness (Acute) Hypovolemia (Acute) Asymmetrical sensorineural hearing loss (Acute) Pituitary mass (Acute) Tinnitus, bilateral (Acute) Sensorineural hearing loss of both ears (Acute) Social History Smoking/Tobacco Use Status: Former Tobacco Use Smoking risk assessment performed?: Yes Alcohol Intake: never Drug use: Never Substance use type: does not use Do you feel safe at home: Yes Do you feel safe in your relationship?: Yes
[2024-10-17 10:17] LABS: Lactate 2.5 mmol/L (<or=2.0)
[2024-10-17] MEDS: Ondansetron 4 MG/2 ML VIAL IVP (10:25)
[2024-10-17 10:32] LABS: Abs Immature Grans 0.01 10^3/uL (0.0-0.06); Absolute Basophil Count 0.04 10^3/uL (0.0-0.2); Absolute Eosinophil Count 0.08 10^3/uL (0.0-0.7); Absolute Lymphocyte Count 1.07 10^3/uL (1.2-3.4); Absolute Monocyte Count 0.39 10^3/uL (0.1-0.8); Absolute Neutrophil Count 5.26 10^3/uL (1.2-6.7); Basophils % 0.6 %; Eosinophils % 1.2 %; HCT 45.2 % (40.0-50.0); HGB 15.1 g/dL (13.5-17.5); Immature Grans % 0.1 %; Lymphocytes % 15.6 %; MCH 29.4 pg (27.0-33.0); MCHC 33.4 % (32.0-36.0); MCV 88 fL (80-95); MPV 10.7 fL (8.0-11.0); Monocytes % 5.7 %; Neutrophils % 76.8 %; Platelet Count 254 10^3/uL (130-400); RBC 5.13 10^6/uL (4.36-5.78); RDW 16.8 % (11.8-14.1); RDW-SD 54.4 fL; WBC 6.85 10^3/uL (4.4-10.8)
[2024-10-17] MEDS: Omnipaque 350 MG/ML 100 ML BTL 75 ML IJ (10:47)
[2024-10-17] MEDS: Normal Saline - Diluent 50 ML VIAL IJ (10:48)
[2024-10-17] MEDS: Lactated Ringers 1,000 ML 1000 ML IV (10:49)
[2024-10-17 10:50] LABS: ALT 75 U/L (16-63); AST 47 U/L (15-37); Albumin 4.7 g/dL (3.4-5.0); Alkaline Phosphatase 122 U/L (46-116); Anion Gap 12.3 mmol/L (3-11); BUN 13 mg/dL (7-18); Bilirubin, Total 1.4 mg/dL (0.2-1.0); CO2 23.7 mmol/L (21.0-32.0); CREATININE 0.9 mg/dL (0.70-1.30); Chloride 100 mmol/L (98-107); Estimated GFR 89.62 (mL/min/1.73m2); Glucose 98 mg/dL (74-106); Magnesium 1.9 mg/dL (1.8-2.4); Potassium 4.1 mmol/L (3.5-5.1); Sodium 136 mmol/L (136-145); Total Protein 8.5 g/dL (6.4-8.2); Troponin I 20 ng/L (<or=76)
[2024-10-17 10:56] LABS: Calcium 12.2 mg/dL (8.5-10.1)
[2024-10-17 11:02] LABS: Lipase 42 U/L (<78)
--- NOTE | 2024-10-17 11:12 | DI.VRAD_ITS ---
PROCEDURE INFORMATION: Exam: CT Abdomen And Pelvis With Contrast Exam date and time: 10/17/2024 10:33 AM Age: 74 years old Clinical indication: Other: Abdominal pain and vomiting TECHNIQUE: Imaging protocol: Computed tomography of the abdomen and pelvis with contrast. Contrast material: OMNIPAQUE 350; Contrast volume: 75 ml; Contrast route: INTRAVENOUS (IV); COMPARISON: CR XR CHEST 2V PA LATERAL 10/08/2024 12:47 PM FINDINGS: Liver: Normal. No mass. Gallbladder and biliary ducts: The gallbladder is decompressed or absent. Pancreas: Normal. No ductal dilation. Spleen: Normal. No splenomegaly. Adrenal glands: Normal. No mass. Kidneys and ureters: Normal. No hydronephrosis. Stomach and bowel: There are sigmoid/descending colonic diverticuli. No bowel wall thickening. No obstruction. Appendix: No evidence of appendicitis. Intraperitoneal space: There is trace free fluid in the dependent pelvis. No free air. Vasculature: Unremarkable. No abdominal aortic aneurysm. Lymph nodes: Unremarkable. No enlarged lymph nodes. Urinary bladder: Unremarkable as visualized. Reproductive: Unremarkable as visualized. Bones/joints: There are degenerative changes in the lumbar spine. Soft tissues: There is a small fat containing umbilical hernia. IMPRESSION: 1. No acute findings. 2. Sigmoid/descending colonic diverticulosis. Dictated and Authenticated by: Delmar Boyd MD. Orderin St. Tra Junior MD
[2024-10-17 11:32] LABS: Bilirubin Negative (Negative); Blood Negative (Negative); Clarity Sl Cloudy (Clear); Glucose Negative (Negative); Ketones 15 mg/dL (Negative); Leukocyte Esterase Negative (Negative); Nitrite Negative (Negative); Specific Gravity 1.015 (1.005-1.025); pH 8.5 (5-8)
[2024-10-17 12:07] LABS: Troponin I 16 ng/L (<or=76)
== END 2024-10-17 12:40 | disposition home or self-care (01) ==
PROVIDERS: Emergency Provider Emergency Medicine; PCP Nurse Practitioner Family
DX: R11.2 Nausea with vomiting, unspecified (principal); E83.52 Hypercalcemia; E86.0 Dehydration; I45.19 Other right bundle-branch block
CPT/HCPCS: 36415; 80053; 83690; 93005; 96374; 99284; 99285; 74177; 81003; 83605; 83735; 84484; 85025; 93010; J2405; J3490

== ENCOUNTER 2024-10-18 11:05 | Outpatient (RCR) | payer MEDICARE, SELFPAY ==
--- NOTE | 2024-10-18 11:00 | RT.EKG_ITS ---
APPROVED REPORT Exam: Resting ECG Reason for Exam: Baseline Patient Location: O HR:68 bpm ECG Measurements Heart Rate 68 AXIS ME 177 P 86 QRSd 140 QRS 86 QT 430 T 25 QTc 458 Conclusion Sinus rhythm...normal P axis, V-rate 50- 99 Right bundle branch block...QRSd>120, terminal axis(90,270)
== END 2024-11-15 23:59 | disposition home or self-care (01) ==
LOC: CR 11:05
PROVIDERS: PCP Nurse Practitioner Family; Visit Provider Internal Medicine Cardiovascular Disease
CPT/HCPCS: S9472

== ENCOUNTER 2024-11-01 13:08 | Outpatient (REF) | payer MEDICARE, SELFPAY ==
[2024-11-01 16:01] LABS: HCT 40.7 % (40.0-50.0); HGB 13.1 g/dL (13.5-17.5); MCHC 32.2 % (32.0-36.0); MCV 93 fL (80-95); MPV 10.8 fL (8.0-11.0); Platelet Count 216 10^3/uL (130-400); RBC 4.36 10^6/uL (4.36-5.78); RDW 15.9 % (11.8-14.1); RDW-SD 54.5 fL; WBC 4.81 10^3/uL (4.4-10.8)
[2024-11-01 16:12] LABS: ALT 78 U/L (16-63); AST 48 U/L (15-37); Albumin 4.3 g/dL (3.4-5.0); Alkaline Phosphatase 97 U/L (46-116); Anion Gap 8.6 mmol/L (3-11); BUN 16 mg/dL (7-18); Bilirubin, Total 0.8 mg/dL (0.2-1.0); CO2 29.4 mmol/L (21.0-32.0); CREATININE 0.9 mg/dL (0.70-1.30); Calcium 11.1 mg/dL (8.5-10.1); Chloride 103 mmol/L (98-107); Estimated GFR 89.62 (mL/min/1.73m2); Glucose 80 mg/dL (74-106); Potassium 4.5 mmol/L (3.5-5.1); Sodium 141 mmol/L (136-145); Total Protein 7.9 g/dL (6.4-8.2)
[2024-11-01 23:21] LABS: Parathyroid Hormone,Intact 74 pg/mL (19-88)
== END 2024-11-01 13:09 | disposition home or self-care (01) ==
LOC: NCHCN 13:08
PROVIDERS: PCP Nurse Practitioner Family; Visit Provider Nurse Practitioner Family
DX: R53.1 Weakness (principal)
CPT/HCPCS: 80053; 82533; 85027; 83970

== ENCOUNTER 2024-11-03 09:00 | Outpatient (RCR) | payer MEDICARE, SELFPAY | END 2024-11-15 23:59 | disposition home or self-care (01) | LOC: CR 09:00 | PROVIDERS: PCP Nurse Practitioner Family; Visit Provider Internal Medicine Cardiovascular Disease | DX: I50.9 Heart failure, unspecified (principal); Z51.89 Encounter for other specified aftercare | CPT/HCPCS: S9472 ==

== ENCOUNTER 2024-11-05 09:13 | Emergency (ER) | payer MEDICARE, SELFPAY ==
[2024-11-05] VITALS (85 sets, daily range): BP systolic 74–127; BP diastolic 35–76; PULSE 54–78; RESP 7–23; TEMP 36.4–36.8; O2SAT 92–100
--- NOTE | 2024-11-05 09:00 | RT.EKG_ITS ---
APPROVED REPORT Exam: Resting ECG Reason for Exam: hypotension, dyspnea Patient Location: E HR:70 bpm ECG Measurements Heart Rate 70 AXIS TX 170 P 74 QRSd 138 QRS 83 QT 402 T 60 QTc 431 Conclusion Sinus rhythm...normal P axis, V-rate 60- 99 Atrial premature complex...SV complex w/ short R-R interval Right bundle branch block...QRSd>120, terminal axis(90,270) Physician: no stemi, unchanged
[2024-11-05] MEDS: Normal Saline 1,000 ML 1000 ML IV (09:38)
[2024-11-05 09:44] LABS: Abs Immature Grans 0.01 10^3/uL (0.0-0.06); Absolute Basophil Count 0.04 10^3/uL (0.0-0.2); Absolute Lymphocyte Count 0.56 10^3/uL (1.2-3.4); Absolute Monocyte Count 0.42 10^3/uL (0.1-0.8); Absolute Neutrophil Count 6.07 10^3/uL (1.2-6.7); Basophils % 0.6 %; Eosinophils % 1.4 %; HCT 38.1 % (40.0-50.0); HGB 12.5 g/dL (13.5-17.5); Immature Grans % 0.1 %; Lymphocytes % 7.8 %; MCH 30.1 pg (27.0-33.0); MCHC 32.8 % (32.0-36.0); MCV 92 fL (80-95); MPV 10.1 fL (8.0-11.0); Monocytes % 5.8 %; Neutrophils % 84.3 %; Platelet Count 199 10^3/uL (130-400); RBC 4.15 10^6/uL (4.36-5.78); RDW 15.6 % (11.8-14.1); RDW-SD 52.6 fL
[2024-11-05 09:46] LABS: Lactate 2.4 mmol/L (<or=2.0)
[2024-11-05 10:11] LABS: ALT 65 U/L (16-63); AST 33 U/L (15-37); Albumin 4.1 g/dL (3.4-5.0); Alkaline Phosphatase 101 U/L (46-116); Anion Gap 7.2 mmol/L (3-11); BUN 22 mg/dL (7-18); Bilirubin, Total 0.8 mg/dL (0.2-1.0); CO2 29.8 mmol/L (21.0-32.0); Calcium 10.9 mg/dL (8.5-10.1); Chloride 103 mmol/L (98-107); Estimated GFR 78.98 (mL/min/1.73m2); Glucose 76 mg/dL (74-106); Magnesium 1.8 mg/dL (1.8-2.4); NT-proBNP 355 pg/mL (<300); Potassium 4.2 mmol/L (3.5-5.1); Sodium 140 mmol/L (136-145); Total Protein 7.3 g/dL (6.4-8.2); Troponin I 25 ng/L (<or=76)
[2024-11-05] MEDS: Albuterol/Ipratropium 3 ML UPD VIAL UPD (10:14)
[2024-11-05 10:18] LABS: D-Dimer 294 ng/mlFEU (<500)
[2024-11-05 10:30] LABS: TSH (W/Ref FT4) 2.09 uIU/mL (0.36-3.74)
--- NOTE | 2024-11-05 10:45 | DI.RAD_ITS ---
Exam(s) XR CHEST 2V PA LATERAL EXAM: XR CHEST 2V PA LATERAL CLINICAL HISTORY: shortness of breath TECHNIQUE: 2D digital imaging was performed. Two views. COMPARISON: CR XR CHEST 2V PA LATERAL from 10/08/2024 FINDINGS: Exam is limited by semi-erect positioning. Multiple overlying monitoring leads. HEART: Normal size. Aorta: Not dilated. PULMONARY VASCULATURE: Normal. MEDIASTINUM: Unremarkable. LUNGS: Clear. PLEURAL SPACE: No pleural effusion or pneumothorax. BONE:Advanced degenerative changes in the right shoulder as well as postsurgical changes bilaterally. Degenerative changes are noted in the spine. SOFT TISSUES: Skin fold noted on the right. IMPRESSION: No acute abnormality. DATA REPOSITORY: RADIATION DOSE DELIVERED:
--- NOTE | 2024-11-05 12:16 | W.ED.GENAD ---
Discharge Plan Discharge Details Chief Complaint: SOB Primary Care Provider: Phuong Gar ED Provider: Ronak Joel Home Meds and New Rx's Prescriptions: No Action tamsulosin 0.4 mg capsule 0.4 mg PO DAILY buspirone 5 mg tablet 5 mg PO TID PRN furosemide 40 mg tablet 40 mg PO DAILY PRN Patient Comments: TAKE 1 TABLET BY MOUTH EVERY DAY atorvastatin 80 mg tablet 80 mg PO DAILY amiodarone 200 mg tablet 200 mg PO DAILY Patient Comments: TAKE 2 TABLETS DAILY FOR 7 DAYS THEN REDUCE DOSE TO 1 TABLET DAILY UNTIL FOLLOW UP sertraline 100 mg tablet 150 mg PO DAILY clopidogrel 75 mg tablet 75 mg PO DAILY cabergoline 0.5 mg tablet 0.5 mg PO DIRECTED Rx Instructions: mon and fri omeprazole 20 mg capsule,delayed release(DR/EC) 20 mg PO DAILY Eliquis 5 mg tablet 5 mg PO BID ondansetron 4 mg tablet,disintegrating 4 mg PO Q8H PRNQty: 10 0RF Discharge Instructions Additional Instructions: You were seen in the emergency department for your shortness of breath sent over from cardiac rehab, we did provide you fluid which improved your hypotension, you have been dehydrated in the past, your cardiac workup is negative. You had some signs of dizziness with your eyes closed and you have significant 70 to 90% narrowing of your carotid artery on the right HPI General Date/Time Provider Initiated Documentation: 11/05/24 09:25. HPI Narrative: 74 year-old male presents to ED today by POV/ambulating with his , sent down from Cardiac rehab from hypotension, having baseline shortness of breath with a chief complaint of dizziness- problems with gait, vertiginous feeling when he closes his eyes with known pituitary mass, recent [facility] in-patient stay with neurology for this. Recent US carotids and stroke work-up with onset over days to weeks. Quality described as feelings of movement when he closes his eyes, states he often drifts to the left in hallways, no radiation to slurred speech, facial droop, chest pain, fever, cough. Severity is described as mild to moderate. Palliating factors include nothing specific attempted. Provoking factors include nothing specific. Events leading up to the incident/Associated Symptoms: Patients endorses he has aortic stenosis. Patient is anticoagulated on Eliquis. Related Data Home Medications ?Medication ?Instructions ?Recorded ?Confirmed amiodarone 200 mg tablet 200 mg PO DAILY 10/17/24 10/17/24 apixaban 5 mg tablet (Eliquis) 5 mg PO BID 10/17/24 11/05/24 atorvastatin 80 mg tablet 80 mg PO DAILY 10/17/24 11/05/24 cabergoline 0.5 mg tablet 0.5 mg PO DIRECTED 10/17/24 11/05/24 clopidogrel 75 mg tablet 75 mg PO DAILY 10/17/24 11/05/24 furosemide 40 mg tablet 40 mg PO DAILY PRN 10/17/24 11/05/24 omeprazole 20 mg capsule,delayed 20 mg PO DAILY 10/17/24 10/17/24 release ondansetron 4 mg disintegrating 4 mg PO Q8H PRN #10 tabs 10/17/24 11/05/24 tablet sertraline 100 mg tablet 150 mg PO DAILY 10/17/24 11/05/24 buspirone 5 mg tablet 5 mg PO TID PRN 11/05/24 11/05/24 tamsulosin 0.4 mg capsule 0.4 mg PO DAILY 11/05/24 11/05/24 Previous Rx's ?Medication ?Instructions ?Recorded ondansetron 4 mg disintegrating 4 mg PO Q8H PRN #10 tabs 10/17/24 tablet Allergies Allergy/AdvReac Type Severity Reaction Status Date / Time Latex, Natural Rubber Allergy Mild Other (See Verified 11/05/24 09:25 Comment) Penicillins Allergy Mild Skin Rash Verified 11/05/24 09:25 simvastatin AdvReac Intermediate Other (See Verified 11/05/24 09:25 Comment) General Stated Complaint: SOB TAE: 2 Review of Systems All systems reviewed & are unremarkable except as noted in HPI and below Exam Narrative Exam Narrative: GENERAL APPEARANCE: Well-nourished, non-toxic, awake and alert, atraumatic, no acute distress. SKIN: Warm, pink, dry, intact, without rashes/lesions/ulcerations. HEAD: Normocephalic, atraumatic, normal hair distribution for gender/age. EYES: Normal conjunctiva, no exudates on lids/lashes. ENT: Nares patent, no circumoral cyanosis, no facial swelling NECK: Supple, trachea midline, painless cervical ROM. LUNGS/CHEST: Lungs CTA bilaterally- no rhonchi/rales/wheezes diffusely, non-labored respirations, normal A/P diameter, symmetrical expansion, no chest wall deformity HEART (CV/PV): Regular rate and rhythm with murmur systolic, no peripheral edema, no JVD. ABDOMEN: Soft, non-distended, no guarding. MSK: Normal ROM, no swelling/deformity to bilateral UEs or LEs, moving all extremities without weakness, no cyanosis, spine midline without tenderness, normal curvature. NEURO: Mental Status AAOx4 - alert to person, place, time, events No facial droop, no forehead involvement, abnormality with LUE FNF Motor: No focal weakness - strength 5/5 in bilateral UEs and LEs, proximal and distal, symmetric. Sensory: sensation intact to light touch globally. Gait NT, Romberg + PSYCH: euthymic, cooperative, pleasant, appropriate speech Course Vital Signs Vital signs: Vital Signs Pulse 74 11/05/24 09:19 Respiratory Rate 15 11/05/24 09:19 Blood Pressure 103/51 L 11/05/24 09:19 Pulse Oximetry 100 11/05/24 09:19 Temperature 36.4 C 11/05/24 09:25 Temperature Source Oral 11/05/24 09:25 Pulse 61 11/05/24 12:00 Pulse 62 11/05/24 12:00 Respiratory Rate 15 11/05/24 12:00 Respiratory Effort Short of Breath 11/05/24 09:29 Blood Pressure 101/51 L 11/05/24 11:37 Blood Pressure Mean 64 11/05/24 11:37 Blood Pressure Position Supine 11/05/24 09:25 Pulse Oximetry 97 11/05/24 12:00 Oxygen Delivery Method Room Air 11/05/24 10:14 Oxygen Flow Rate 0 11/05/24 10:14 Pain Level 0 11/05/24 09:25 Lab/Test Results Lab/Test Results: Laboratory Tests Range/Units 11/05/24 09:25 WBC (4.4-10.8) 10^3/uL 7.20 RBC (4.36-5.78) 10^6/uL 4.15 L Hgb (13.5-17.5) g/dL 12.5 L Hct (40.0-50.0) % 38.1 L MCV (80-95) fL 92 MCH (27.0-33.0) pg 30.1 MCHC (32.0-36.0) % 32.8 RDW (11.8-14.1) % 15.6 H Plt Count (130-400) 10^3/uL 199 MPV (8.0-11.0) fL 10.1 Immature Gran % % 0.1 Neutrophils % % 84.3 Lymphocytes % % 7.8 Monocytes % % 5.8 Eosinophils % % 1.4 Basophils % % 0.6 Nucleated RBC % (0.0-0.3) % 0.0 Absolute Neutrophils (1.2-6.7) 10^3/uL 6.07 Absolute Lymphocytes (1.2-3.4) 10^3/uL 0.56 L Absolute Monocytes (0.1-0.8) 10^3/uL 0.42 Absolute Eosinophils (0.0-0.7) 10^3/uL 0.10 Absolute Basophils (0.0-0.2) 10^3/uL 0.04 D-Dimer (<500) ng/mlFEU 294 VBG Lactate (<or=2.0) mmol/L 2.4 H* Sodium (136-145) mmol/L 140 Potassium (3.5-5.1) mmol/L 4.2 Chloride (98-107) mmol/L 103 Carbon Dioxide (21.0-32.0) mmol/L 29.8 Anion Gap (3-11) mmol/L 7.2 BUN (7-18) mg/dL 22 H Creatinine (0.70-1.30) mg/dL 1.0 Est GFR (CKD-EPI 2020) (mL/min/1.73m2) 78.98 Glucose (74-106) mg/dL 76 Calcium (8.5-10.1) mg/dL 10.9 H Magnesium (1.8-2.4) mg/dL 1.8 Total Bilirubin (0.2-1.0) mg/dL 0.8 AST (15-37) U/L 33 ALT (16-63) U/L 65 H Alkaline Phosphatase (46-116) U/L 101 Troponin I (<or=76) ng/L 25 NT-Pro-B Natriuret Pep (<300) pg/mL 355 H Total Protein (6.4-8.2) g/dL 7.3 Albumin (3.4-5.0) g/dL 4.1 TSH (0.36-3.74) uIU/mL 2.09 Medical Decision Making This dictation utilizes [id number] dictation software and may contain unedited grammatical errors. 74 year-old male presents to ED today by POV/ambulating with his , sent down from Cardiac rehab from hypotension, having baseline shortness of breath with a chief complaint of dizziness- problems with gait, vertiginous feeling when he closes his eyes with known pituitary mass, recent [facility] in-patient stay with neurology for this. Recent US carotids and stroke work-up with onset over days to weeks. Quality described as feelings of movement when he closes his eyes, states he often drifts to the left in hallways, no radiation to slurred speech, facial droop, chest pain, fever, cough. Severity is described as mild to moderate. Palliating factors include nothing specific attempted. Provoking factors include nothing specific. Patients' medical history: Pituitary mass, tinnitus, history of atrial fibrillation. Family and social history: Noncontributory. Pertinent exam findings / vital signs include cerebellar signs with FNF in the left upper extremity, no ophthalmoplegia, EOMs intact without nystagmus, benign cardiopulmonary exam with chronic murmur of AAS noted, lungs CTA, benign abdomen. Differential / pathologies of concern include CVA, brain mass, dehydration, pneumonia, pe. Diagnostic studies of: - CBC, CMP, D-dimer, lactate, magnesium, troponin, BNP, TSH, XR chest, CTA brain and neck, EKG. - CBC shows chronic anemia that is baseline with no signs of acute infection or left shift - D-dimer negative - Lactate is mildly elevated at 2.4 likely in the setting of mild dehydration with mildly elevated BUN at 22 - Magnesium within normal limits - Troponin negative with reliable onset - BNP is mildly elevated at 355 - TSH low limits - XR chest shows no acute abnormality - CTA of the head and neck shows 70 to 90% stenosis of the right carotid artery likely symptomatic carotid stenosis with the patient's cerebellar signs - EKG without ischemic changes Interventions of: - 1 L of fluids with improvement of 110/48 for blood pressure, pending teleneurology at time of signout. ED Course/Assessment/Plan: 74-year-old male presents with some dizziness with his eyes closed, reports some subjective drifting to the left when ambulating around at home and has some cerebellar signs on neuroexam, he was hypotensive presenting to cardiac rehab today, this improved with saline IV fluids. CTA shows a 70 to 90% stenosis of the right carotid artery which could be consistent with his neurologic findings. He had a recent admission to [facility] with neurology consults and recent ultrasound of his carotids, I am signing the patient out with pending teleneurology visit to see if they need to update or expedite any of his current plan or follow-up, patient is signed out to Lisa Sparrow NP with hopeful disposition to discharge home and follow-up with [facility] neurology or vascular surgery, otherwise the patient has been stable throughout the visit. Disposition of Carotid Stenosis. Patient verbalized understanding of the plan and return to ED criteria and engaged in shared decision making. Medical Records Medical records reviewed: Yes I reviewed the patient's medical records. Imaging Data Radiologic Study: Attestation: I personally reviewed and interpreted this imaging study as follows: Imaging: X-Ray Radiologist's impression: EXAM: XR CHEST 2V PA LATERAL CLINICAL HISTORY: shortness of breath TECHNIQUE: 2D digital imaging was performed. Two views. COMPARISON: CR XR CHEST 2V PA LATERAL from 10/08/2024 FINDINGS: Exam is limited by semi-erect positioning. Multiple overlying monitoring leads. HEART: Normal size. Aorta: Not dilated. PULMONARY VASCULATURE: Normal. MEDIASTINUM: Unremarkable. LUNGS: Clear. PLEURAL SPACE: No pleural effusion or pneumothorax. BONE:Advanced degenerative changes in the right shoulder as well as postsurgical changes bilaterally. Degenerative changes are noted in the spine. SOFT TISSUES: Skin fold noted on the right. IMPRESSION: No acute abnormality. Radiologic Study #2: Attestation: I personally reviewed and interpreted this imaging study as follows: Imaging: CT Scan Radiologist's impression: EXAM: CT BRAIN NECK CTA CLINICAL HISTORY: vertigo, ?cerebellar signs. TECHNIQUE: Imaging Protocol: Axial CT angiography was performed with multi-slice acquisition and multi-planar and/or 3D reconstructions. CONTRAST MATERIAL: Intravenous: Omnipaque 350 contrast volume:70 mL COMPARISON: MR MR BRAIN PITUITARY WO/W from 08/24/2021 MR MR BRAIN WWO CONTRAST from 02/19/2024 MR MR BRAIN PITUITARY WO/W from 10/04/2024 FINDINGS: CT Head W/O and W: Ventricles and Extra axial spaces: Normal in size and morphology for the patient's age. Hemorrhage: None. Cerebral parenchyma: There is no evidence of an acute territorial infarct. There are areas of decreased attenuation in the white matter consistent with chronic microvascular ischemic disease. There is no mass effect. Midline shift: None. Brainstem/Cerebellum: Normal. Calvarium: Normal. Visualized Paranasal sinuses/Mastoids: Clear. Soft Tissues: Unremarkable. Enhancement: Unremarkable. CTA Neck W: Common Carotid: Right: No dissection, occlusion or significant stenosis. There is mild atherosclerotic calcification at the bifurcation without significant stenosis. Left: No dissection, occlusion or significant stenosis. Atherosclerotic calcification is seen at the carotid bulb without significant stenosis. External Carotid: Right: No occlusion or significant stenosis. Left: No occlusion or significant stenosis. Internal Carotid: Right: No dissection, occlusion or significant stenosis. Mild calcification at the proximal internal carotid artery without significant stenosis. Left: No dissection, occlusion or significant stenosis. Atherosclerotic calcification is seen in the proximal internal carotid artery with less than 50 percent stenosis. Vertebral Artery: Right: No dissection, occlusion or significant stenosis. Left: No dissection, occlusion or significant stenosis. Lung Apices: Normal. Bones: Within normal limits for the patient's age. Soft Tissues: Normal. Thyroid gland: Unremarkable. CTA Brain W: Internal Carotid Arteries: Atherosclerotic calcification is seen in the left internal carotid artery with less than 50 percent stenosis. There is atherosclerotic calcifications seen in the cavernous portion of the right internal carotid artery with between 70 and 90 percent stenosis. Anterior Cerebral Arteries: Right: No aneurysm, occlusion or significant stenosis. Left: No aneurysm, occlusion or significant stenosis. Middle Cerebral Arteries: Right: No aneurysm, occlusion or significant stenosis. Left: No aneurysm, occlusion or significant stenosis. Posterior Cerebral Arteries: Right: No aneurysm, occlusion or significant stenosis. Left: No aneurysm, occlusion or significant stenosis. Vertebral Arteries: Right: No aneurysm, occlusion or significant stenosis. Left: No aneurysm, occlusion or significant stenosis. Basilar Artery: No aneurysm, occlusion or significant stenosis. IMPRESSION: 1. Atherosclerotic calcification in the cavernous portions of the internal carotid arteries bilaterally. There is less than 50 percent stenosis on the left and 70-90 percent stenosis on the right. 2. No acute intracranial process. 3. Atherosclerotic calcification in the proximal left internal carotid artery with less than 50 percent stenosis. Lab Data Lab results reviewed: Yes I reviewed the patient's lab results. Labs: Laboratory Tests Range/Units 11/05/24 09:25 WBC (4.4-10.8) 10^3/uL 7.20 RBC (4.36-5.78) 10^6/uL 4.15 L Hgb (13.5-17.5) g/dL 12.5 L Hct (40.0-50.0) % 38.1 L MCV (80-95) fL 92 MCH (27.0-33.0) pg 30.1 MCHC (32.0-36.0) % 32.8 RDW (11.8-14.1) % 15.6 H Plt Count (130-400) 10^3/uL 199 MPV (8.0-11.0) fL 10.1 Immature Gran % % 0.1 Neutrophils % % 84.3 Lymphocytes % % 7.8 Monocytes % % 5.8 Eosinophils % % 1.4 Basophils % % 0.6 Nucleated RBC % (0.0-0.3) % 0.0 Absolute Neutrophils (1.2-6.7) 10^3/uL 6.07 Absolute Lymphocytes (1.2-3.4) 10^3/uL 0.56 L Absolute Monocytes (0.1-0.8) 10^3/uL 0.42 Absolute Eosinophils (0.0-0.7) 10^3/uL 0.10 Absolute Basophils (0.0-0.2) 10^3/uL 0.04 D-Dimer (<500) ng/mlFEU 294 VBG Lactate (<or=2.0) mmol/L 2.4 H* Sodium (136-145) mmol/L 140 Potassium (3.5-5.1) mmol/L 4.2 Chloride (98-107) mmol/L 103 Carbon Dioxide (21.0-32.0) mmol/L 29.8 Anion Gap (3-11) mmol/L 7.2 BUN (7-18) mg/dL 22 H Creatinine (0.70-1.30) mg/dL 1.0 Est GFR (CKD-EPI 2020) (mL/min/1.73m2) 78.98 Glucose (74-106) mg/dL 76 Calcium (8.5-10.1) mg/dL 10.9 H Magnesium (1.8-2.4) mg/dL 1.8 Total Bilirubin (0.2-1.0) mg/dL 0.8 AST (15-37) U/L 33 ALT (16-63) U/L 65 H Alkaline Phosphatase (46-116) U/L 101 Troponin I (<or=76) ng/L 25 NT-Pro-B Natriuret Pep (<300) pg/mL 355 H Total Protein (6.4-8.2) g/dL 7.3 Albumin (3.4-5.0) g/dL 4.1 TSH (0.36-3.74) uIU/mL 2.09 PFSH All Active Problems (Updated 11/05/24 @ 15:22 by MIGUELITO Weller) Dehydration symptoms (Acute) Hypercalcemia (Acute) Nausea & vomiting (Acute) Dizziness (Acute) Hypovolemia (Acute) Asymmetrical sensorineural hearing loss (Acute) Pituitary mass (Acute) Tinnitus, bilateral (Acute) Sensorineural hearing loss of both ears (Acute) Social History Smoking/Tobacco Use Status: Former Tobacco Use Smoking risk assessment performed?: Yes Alcohol Intake: never Drug use: Never Substance use type: does not use Do you feel safe at home: Yes Do you feel safe in your relationship?: Yes
--- NOTE | 2024-11-05 12:30 | DI.CT_ITS ---
Exam(s) CT BRAIN NECK CTA EXAM: CT BRAIN NECK CTA CLINICAL HISTORY: vertigo, ?cerebellar signs. TECHNIQUE: Imaging Protocol: Axial CT angiography was performed with multi- slice acquisition and multi-planar and/or 3D reconstructions. CONTRAST MATERIAL: Intravenous: Omnipaque 350 contrast volume:70 mL COMPARISON: MR MR BRAIN PITUITARY WO/W from 08/24/2021 MR MR BRAIN WWO CONTRAST from 02/19/2024 MR MR BRAIN PITUITARY WO/W from 10/04/2024 FINDINGS: CT Head W/O and W: Ventricles and Extra axial spaces: Normal in size and morphology for the patient's age. Hemorrhage: None. Cerebral parenchyma: There is no evidence of an acute territorial infarct. There are areas of decreased attenuation in the white matter consistent with chronic microvascular ischemic disease. There is no mass effect. Midline shift: None. Brainstem/Cerebellum: Normal. Calvarium: Normal. Visualized Paranasal sinuses/Mastoids: Clear. Soft Tissues: Unremarkable. Enhancement: Unremarkable. CTA Neck W: Common Carotid: Right: No dissection, occlusion or significant stenosis. There is mild atherosclerotic calcification at the bifurcation without significant stenosis. Left: No dissection, occlusion or significant stenosis. Atherosclerotic calcification is seen at the carotid bulb without significant stenosis. External Carotid: Right: No occlusion or significant stenosis. Left: No occlusion or significant stenosis. Internal Carotid: Right: No dissection, occlusion or significant stenosis. Mild calcification at the proximal internal carotid artery without significant stenosis. Left: No dissection, occlusion or significant stenosis. Atherosclerotic calcification is seen in the proximal internal carotid artery with less than 50 percent stenosis. Vertebral Artery: Right: No dissection, occlusion or significant stenosis. Left: No dissection, occlusion or significant stenosis. Lung Apices: Normal. Bones: Within normal limits for the patient's age. Soft Tissues: Normal. Thyroid gland: Unremarkable. CTA Brain W: Internal Carotid Arteries: Atherosclerotic calcification is seen in the left internal carotid artery with less than 50 percent stenosis. There is atherosclerotic calcifications seen in the cavernous portion of the right internal carotid artery with between 70 and 90 percent stenosis. Anterior Cerebral Arteries: Right: No aneurysm, occlusion or significant stenosis. Left: No aneurysm, occlusion or significant stenosis. Middle Cerebral Arteries: Right: No aneurysm, occlusion or significant stenosis. Left: No aneurysm, occlusion or significant stenosis. Posterior Cerebral Arteries: Right: No aneurysm, occlusion or significant stenosis. Left: No aneurysm, occlusion or significant stenosis. Vertebral Arteries: Right: No aneurysm, occlusion or significant stenosis. Left: No aneurysm, occlusion or significant stenosis. Basilar Artery: No aneurysm, occlusion or significant stenosis. IMPRESSION: 1. Atherosclerotic calcification in the cavernous portions of the internal carotid arteries bilaterally. There is less than 50 percent stenosis on the left and 70-90 percent stenosis on the right. 2. No acute intracranial process. 3. Atherosclerotic calcification in the proximal left internal carotid artery with less than 50 percent stenosis. RADIATION DOSE DELIVERED: 2,089.9mGy.cm Total DLP DATA REPOSITORY: All CT scans at this facility are submitted to the National Radiology Data Registry (NRDR) Dose Index Registry (DIR) with the [employer] ([employer]). RADIATION OPTIMIZATION: All CT scans at this facility use at least one of these dose optimization techniques: automated exposure control; mA and/or kV adjustment per patient size (includes targeted exams where dose is matched to clinical indication); or iterative reconstruction.
[2024-11-05] MEDS: Normal Saline - Diluent 50 ML VIAL IJ (13:54)
[2024-11-05] MEDS: Omnipaque 350 MG/ML 100 ML BTL 70 ML IJ (13:55)
--- NOTE | 2024-11-05 16:05 | W.EDPROG ---
Date of service: 11/05/24 Time of Service: 16:05 Medical Decision Making Care assumed from provider Andrez FARLEY pending tele-neuro consult. SOB and failed finger to nose, subjective positive rhomberg at home with ambulation. CTA shows 70-90% stenosis of Right internal carotid artery. 1640: Teleneuro in process at this time. 1739: Spoke with Dr. Olivier with [facility] [place] teleneuro regarding patient case in details. He recommends an outpatient evaluation by neurointerventional radiologist for the right ICA stenosis. 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 No leg drop, intact dorsal extension and flexion. Discussed plan with patient and family who verbalize understanding. Patient discharged in hemodynamically stable condition. Patient placed on care management list to assist with getting a neuro interventionalists appointment as soon as possible. This text was generated using Growation system, please disregard any oddities of phrase or misspellings. Medical Records Medical records reviewed: Yes I reviewed the patient's medical records. Lab Data Lab results reviewed: Yes I reviewed the patient's lab results. Labs: Laboratory Tests Range/Units 11/05/24 09:25 WBC (4.4-10.8) 10^3/uL 7.20 RBC (4.36-5.78) 10^6/uL 4.15 L Hgb (13.5-17.5) g/dL 12.5 L Hct (40.0-50.0) % 38.1 L MCV (80-95) fL 92 MCH (27.0-33.0) pg 30.1 MCHC (32.0-36.0) % 32.8 RDW (11.8-14.1) % 15.6 H Plt Count (130-400) 10^3/uL 199 MPV (8.0-11.0) fL 10.1 Immature Gran % % 0.1 Neutrophils % % 84.3 Lymphocytes % % 7.8 Monocytes % % 5.8 Eosinophils % % 1.4 Basophils % % 0.6 Nucleated RBC % (0.0-0.3) % 0.0 Absolute Neutrophils (1.2-6.7) 10^3/uL 6.07 Absolute Lymphocytes (1.2-3.4) 10^3/uL 0.56 L Absolute Monocytes (0.1-0.8) 10^3/uL 0.42 Absolute Eosinophils (0.0-0.7) 10^3/uL 0.10 Absolute Basophils (0.0-0.2) 10^3/uL 0.04 D-Dimer (<500) ng/mlFEU 294 VBG Lactate (<or=2.0) mmol/L 2.4 H* Sodium (136-145) mmol/L 140 Potassium (3.5-5.1) mmol/L 4.2 Chloride (98-107) mmol/L 103 Carbon Dioxide (21.0-32.0) mmol/L 29.8 Anion Gap (3-11) mmol/L 7.2 BUN (7-18) mg/dL 22 H Creatinine (0.70-1.30) mg/dL 1.0 Est GFR (CKD-EPI 2020) (mL/min/1.73m2) 78.98 Glucose (74-106) mg/dL 76 Calcium (8.5-10.1) mg/dL 10.9 H Magnesium (1.8-2.4) mg/dL 1.8 Total Bilirubin (0.2-1.0) mg/dL 0.8 AST (15-37) U/L 33 ALT (16-63) U/L 65 H Alkaline Phosphatase (46-116) U/L 101 Troponin I (<or=76) ng/L 25 NT-Pro-B Natriuret Pep (<300) pg/mL 355 H Total Protein (6.4-8.2) g/dL 7.3 Albumin (3.4-5.0) g/dL 4.1 TSH (0.36-3.74) uIU/mL 2.09 Discharge Plan Disposition Patient Disposition: Home Condition: Stable Discharge Details Clinical Impression: More than 50 percent stenosis of right internal carotid artery, Dizziness Primary Care Provider: Phuong Gar ED Provider: Lisa Sparrow Home Meds and New Rx's Prescriptions: Continued tamsulosin 0.4 mg capsule 0.4 mg PO DAILY buspirone 5 mg tablet 5 mg PO TID PRN furosemide 40 mg tablet 40 mg PO DAILY PRN Patient Comments: TAKE 1 TABLET BY MOUTH EVERY DAY atorvastatin 80 mg tablet 80 mg PO DAILY amiodarone 200 mg tablet 200 mg PO DAILY Patient Comments: TAKE 2 TABLETS DAILY FOR 7 DAYS THEN REDUCE DOSE TO 1 TABLET DAILY UNTIL FOLLOW UP sertraline 100 mg tablet 150 mg PO DAILY clopidogrel 75 mg tablet 75 mg PO DAILY cabergoline 0.5 mg tablet 0.5 mg PO DIRECTED Rx Instructions: mon and fri omeprazole 20 mg capsule,delayed release(DR/EC) 20 mg PO DAILY Eliquis 5 mg tablet 5 mg PO BID ondansetron 4 mg tablet,disintegrating 4 mg PO Q8H PRNQty: 10 0RF Discharge Instructions Instructions: Carotid Artery Stenosis (DC), Dizziness, Adult ED Additional Instructions: You were seen in the emergency department for your shortness of breath sent over from cardiac rehab, we did provide you fluid which improved your hypotension, you have been dehydrated in the past, your cardiac workup is negative. You had some signs of dizziness with your eyes closed and you have significant 70 to 90% narrowing of your carotid artery on the right Neurologist at [facility] was consulted and they recommend a outpatient appointment with neurointerventional radiologist. You are placed on the care management list here to assist you in getting an appointment. Please return to the ER be seen for any worsening dizziness headache blurry vision weakness on one side or the other or concerns. Please continue taking your previously prescribed medications. Please increase oral fluids as your blood pressure was slightly low here today. This can also contribute to the dizziness. Thank you for allowing us to care for you today Follow up with primary care provider in 3-5 days. Return to ED sooner if any worsening or concerns. Referrals: [facility] [Provider Group, Interventional Radiology] Clinical Impression: More than 50 percent stenosis of right internal carotid artery Phuong Gar [Primary Care Provider, Medicine] - 2 weeks Discharge Data Discharge Date/Time-TO BE ENTERED AT DEPARTURE: 11/05/24 18:18
== END 2024-11-05 18:18 | disposition home or self-care (01) ==
PROVIDERS: Physician Assistant; Emergency Provider Registered Nurse Emergency; PCP Nurse Practitioner Family
DX: I65.21 Occlusion and stenosis of right carotid artery (principal); R42 Dizziness and giddiness; R06.02 Shortness of breath; Z79.01 Long term (current) use of anticoagulants; Z79.02 Long term (current) use of antithrombotics/antiplatelets
CPT/HCPCS: 00123; 36415; 70496; 70498; 80053; 93005; 94640; 96360; 99285; 71046; 83605; 83735; 83880; 84443; 84484; 85025; 85379; 93010; J3490; J7620

== ENCOUNTER 2024-11-11 10:26 | Outpatient (CLI) | payer MEDICARE, SELFPAY ==
[2024-11-11 11:49] LABS: ALT 74 U/L (16-63); AST 40 U/L (15-37); Alkaline Phosphatase 94 U/L (46-116); BUN 17 mg/dL (7-18); Bilirubin, Total 0.7 mg/dL (0.2-1.0); CREATININE 0.7 mg/dL (0.70-1.30); Calcium 10.8 mg/dL (8.5-10.1); Chloride 103 mmol/L (98-107); Estimated GFR 96.69 (mL/min/1.73m2); Glucose 93 mg/dL (74-106); Potassium 4.5 mmol/L (3.5-5.1); Sodium 139 mmol/L (136-145); Total Protein 7.2 g/dL (6.4-8.2); Vitamin D 25 Total 20 ng/mL (30-100)
[2024-11-12 09:18] LABS: LH 25.1 mIU/mL (3.1-34.6); Prolactin 1.1 ng/mL (2.1-17.7)
[2024-11-13 10:25] LABS: Adrenocorticotropic Hormone, P 24 pg/mL
[2024-12-03 13:36] LABS: Testosterone, Free 4.42 ng/dL (3.28-12.2); Testosterone, Total 655 ng/dL (240-950)
== END 2024-11-11 10:27 | disposition home or self-care (01) ==
LOC: LBO 10:31
PROVIDERS: PCP Nurse Practitioner Family; Visit Provider Internal Medicine Endocrinology, Diabetes & Metabolism
DX: D35.2 Benign neoplasm of pituitary gland (principal); E83.52 Hypercalcemia
CPT/HCPCS: 36415; 80053; 82306; 82533; 84402; 84403; 82024; 83002; 84146; 84439

== ENCOUNTER 2024-11-12 00:58 | Outpatient (CLI) | payer MEDICARE, SELFPAY ==
[2024-11-12] MEDS: Levalbuterol HFA 15 GM INH 4 PUFF IH (09:06)
[2024-11-12] MEDS: Inhaler, Assist Device 1 EACH MC (09:06)
--- NOTE | 2024-11-21 10:07 | W.PFT ---
Date of service: 11/12/24 Time of Service: 07:57 Pulmonary Function Test Result Indications: Dyspnea on exertion Interpretation Spirometry: Mild airflow limitation Airway Pressure: Normal airways resistance Impression Mild airflow limitation Note: Patient fatigued during test with hypoxic SaO2 which recovered with rest. RT requested patient present to ER. Clinical Correlation therefore is recommended.
== END 2024-11-12 00:59 | disposition home or self-care (01) ==
LOC: RT 00:58
PROVIDERS: PCP Nurse Practitioner Family; Visit Provider Student in an Organized Health Care Education/Training Program
DX: R06.00 Dyspnea, unspecified (principal)
CPT/HCPCS: 94010; 94726

== ENCOUNTER 2024-11-12 08:47 | Emergency (ER) | payer MEDICARE, SELFPAY ==
[2024-11-12] VITALS (10 sets, daily range): BP systolic 93–139; BP diastolic 50–97; PULSE 55–71; RESP 14–19; O2SAT 95–100
--- NOTE | 2024-11-12 08:45 | RT.EKG_ITS ---
APPROVED REPORT Exam: Resting ECG Reason for Exam: chest pain Patient Location: E HR:68 bpm ECG Measurements Heart Rate 68 AXIS DE 162 P 74 QRSd 135 QRS 85 QT 436 T 40 QTc 464 Conclusion Sinus rhythm...normal P axis, V-rate 60- 99 Right bundle branch block...QRSd>120, terminal axis(90,270) I have reviewed and interpreted ECG and agree with software generated interpretation.
--- NOTE | 2024-11-12 09:01 | W.ED.GENAD ---
Discharge Plan Disposition Patient Disposition: Home Condition: Good Discharge Details Clinical Impression: Hypercalcemia, Chest tightness, Shortness of breath Primary Care Provider: Phuong Gar ED Provider: Uzma Cota Home Meds and New Rx's Prescriptions: Continued tamsulosin 0.4 mg capsule 0.4 mg PO DAILY buspirone 5 mg tablet 5 mg PO TID PRN furosemide 40 mg tablet 40 mg PO DAILY PRN Patient Comments: TAKE 1 TABLET BY MOUTH EVERY DAY atorvastatin 80 mg tablet 80 mg PO DAILY amiodarone 200 mg tablet 200 mg PO DAILY Patient Comments: TAKE 2 TABLETS DAILY FOR 7 DAYS THEN REDUCE DOSE TO 1 TABLET DAILY UNTIL FOLLOW UP sertraline 100 mg tablet 150 mg PO DAILY clopidogrel 75 mg tablet 75 mg PO DAILY cabergoline 0.5 mg tablet 0.5 mg PO DIRECTED Rx Instructions: mon and fri omeprazole 20 mg capsule,delayed release(DR/EC) 20 mg PO DAILY Eliquis 5 mg tablet 5 mg PO BID ondansetron 4 mg tablet,disintegrating 4 mg PO Q8H PRNQty: 10 0RF Discharge Instructions Instructions: Chest Pain, Adult ED, Shortness of Breath, Adult ED Additional Instructions: As we discussed, your labs and imaging are reassuring here today. I am concerned that you have several new diagnoses and these are difficult to triage- it seems like your medical team is doing a great job and moving things forward. Please call [facility] [place] regarding your recent referrals. You can call their main line at [phone]. You will likely need a cardiac stress test and have the pulmonary function test that was started today at a later date. I encourage that you finish your medical evaluations first to ensure you are ready for this type of testing. Please continue with your home medications. If you develop recurrent pain, shortness of breath that is new/changed or does not stop, or other new/worsening symptoms, please seek care urgently once again. Referrals: Phuong Gar [Primary Care Provider, Medicine] Discharge Data Discharge Date/Time-TO BE ENTERED AT DEPARTURE: 11/12/24 13:14 HPI General Date/Time Provider Initiated Documentation: 11/12/24 09:01. Limitations to Documentation: no limitations. Information obtained by: patient, family (), RN notes reviewed and old records reviewed. History of Present Illness 74 year old M presents to the emergency department with the chief complaint of chest tightness, shortness of breath, described as moderate, and is localized to the chest. Patient reports no radiation. Patient started experiencing this minute(s) and it has been constant (improving but still present). No relieving factors improve symptom(s), Other factors that worsen symptoms (deep breathing, came on during PFT) . Patient notes chest pain and shortness of breath (has had intermittnet SOB for months); denies cough, diaphoresis, fever/chills, headaches, malaise, nausea/vomiting, rash, syncope and weakness. Patient did receive the following treatments prior to arrival, none Related Data Home Medications ?Medication ?Instructions ?Recorded ?Confirmed amiodarone 200 mg tablet 200 mg PO DAILY 10/17/24 10/17/24 apixaban 5 mg tablet (Eliquis) 5 mg PO BID 10/17/24 11/05/24 atorvastatin 80 mg tablet 80 mg PO DAILY 10/17/24 11/05/24 cabergoline 0.5 mg tablet 0.5 mg PO DIRECTED 10/17/24 11/05/24 clopidogrel 75 mg tablet 75 mg PO DAILY 10/17/24 11/05/24 furosemide 40 mg tablet 40 mg PO DAILY PRN 10/17/24 11/05/24 omeprazole 20 mg capsule,delayed 20 mg PO DAILY 10/17/24 10/17/24 release ondansetron 4 mg disintegrating 4 mg PO Q8H PRN #10 tabs 10/17/24 11/05/24 tablet sertraline 100 mg tablet 150 mg PO DAILY 10/17/24 11/05/24 buspirone 5 mg tablet 5 mg PO TID PRN 11/05/24 11/05/24 tamsulosin 0.4 mg capsule 0.4 mg PO DAILY 11/05/24 11/05/24 Previous Rx's ?Medication ?Instructions ?Recorded ondansetron 4 mg disintegrating 4 mg PO Q8H PRN #10 tabs 10/17/24 tablet Allergies Allergy/AdvReac Type Severity Reaction Status Date / Time Latex, Natural Rubber Allergy Mild Other (See Verified 11/12/24 08:57 Comment) Penicillins Allergy Mild Skin Rash Verified 11/12/24 08:57 simvastatin AdvReac Intermediate Other (See Verified 11/12/24 08:57 Comment) General Stated Complaint: Chest Pain TAE: 2 Review of Systems Constitutional Constitutional: Reports as per HPI, Denies chills and Denies fever(s) Eyes Eyes: Denies change in vision Cardiovascular Cardiovascular: Reports as per HPI Respiratory Respiratory: Reports as per HPI, Denies chest congestion, Denies cough, Denies pain on inspiration and Denies pain with cough Gastrointestinal Gastrointestinal: Reports as per HPI, Denies abdominal pain, Denies diarrhea, Denies nausea and Denies vomiting Genitourinary Genitourinary: Denies system reviewed and no additional complaints, except as documented (denies change in urinary habits) Musculoskeletal Musculoskeletal: Reports as per HPI and Denies back pain Integumentary/Breasts Skin/Breast: Reports as per HPI and Denies rash Neurologic Neurologic: Reports as per HPI Exam Const General: cooperative, healthy appearing, comfortable, no acute distress, well developed and anxious Nutritional Appearance: average body habitus and well nourished Orientation: alert, awake and oriented x3 HENMT Head: normal to inspection Ears: hearing grossly normal bilaterally Mouth: moist mucous membranes Chest Chest: normal inspection of the chest, normal palpation of entire chest wall and no crepitus Resp Effort & Inspection: normal respiratory effort, able to speak in complete sentences and no respiratory distress Auscultation: clear to auscultation bilaterally, no rales, no rhonchi and no wheezes Cardio Rate: regular rate Rhythm: regular rhythm Heart Sounds: S1 normal and S2 normal GI Inspection: normal to inspection, no edema and non-distended Palpation: soft, no guarding, not rigid and nontender Skin General skin exam: no rashes or lesions noted Trauma: no lacerations or abrasions Neuro General: patient alert, patient awake and patient oriented x3 Cognition: normal cognition Speech: speech normal Gait: normal gait Extrem General: normal to inspection, capillary refill normal, no pedal edema, no calf tenderness and normal gait Course Vital Signs Vital signs: Vital Signs Pulse 71 11/12/24 08:55 Respiratory Rate 18 11/12/24 08:55 Blood Pressure 93/57 L 11/12/24 08:55 Pulse Oximetry 95 11/12/24 08:55 Pulse 71 11/12/24 08:55 Respiratory Rate 18 11/12/24 08:55 Blood Pressure 93/57 L 11/12/24 08:55 Blood Pressure Position Supine 11/12/24 08:55 Pulse Oximetry 95 11/12/24 08:55 Oxygen Delivery Method Room Air 11/12/24 08:55 Oxygen Flow Rate 0 11/12/24 08:55 Medical Decision Making Patient is a pleasant 74-year-old gentleman, companied by family, presented with chief complaint of chest tightness that began during a PFT. Patient has been having shortness of breath, particular with exertion since May when he was diagnosed with COVID. This was the patient's first PFT, no history of chronic pulmonary dysfunction. During the test, the patient became very fatigued and was reported to have had cyanosis periorally. They note that his O2 dropped to 78%. He reports that he has been having issues like this for several months, largely unchanged. He states that the tightness in his chest has become less consistent since it started during the PFT. However, he continues to have chest tightness particularly with deep inspiration. He denies any krishna chest pain. He denies any history of ACS but does report that he has had a history of stent placement. Patient also has a history of aortic valve stenosis and heart failure which is being medically managed. Denies any recent change in medications. Denies any cough, fever/chills or recent illness. No pain rating into the back. On exam, patient appears very anxious. He was hypotensive at 93/57 but this does appear to be fairly baseline for the patient. Lungs are clear. Cardiac exam is without significant abnormalities. He has no lower extremity edema, no calf pain. Patient denies any missed doses of his Eliquis. Has a history of atrial fibrillation, currently in regular rhythm. He does report that he may have had symptoms of A-fib while he was having the PFT but feels that this symptom has resolved. No pulsatile mass on abdominal exam. ECG was obtained and reviewed by Dr. Waller. Patient has a right bundle branch block but this appears to be unchanged. No acute indication of STEMI. With the patient's continued chest tightness as well as his cardiac history, will give aspirin as well. Obtaining chest x-ray and labs. He does not appear to be in acute heart failure. Do not appreciate any wheezing or adventitious sounds to suggest an acute pulmonary issue. History and symptoms do not suggest aortic aneurysm or dissection. Bedside echo was obtained by myself and Dr. Waller. EF estimated to be about 50% with no acute abnormal multiple wall motion abnormalities appreciated. No pericardial effusion. Labs are reassuring, Troponin x 2 WNL. No leukocytosis. Slight anemia, stable. CMP signficant calcium of 11.1, is dropping off urine for the 24hr study as ordered by endocrine- they are concerned for parathyroid issue. this is being closely monitored. Has been having this followed through [facility], reports that 11.1 is typical at this time. BNP 374 which is baseline for the patient. CXR reievewed by radiologist, no acute abnormality noted. Patient has now had 3 troponins all of which have remained stable and well within normal limits. As patient is anticoagulated, has no missed doses and has not had any consistency with his symptoms, no tachycardia, no hypoxia, I have no suspicion at this time for pulmonary emboli. Symptoms are not consistent with aortic aneurysm or dissection. ACS has been evaluated for and unlikely. Patient has continued to follow-up with his no experience. While he continues to have exertional symptoms, this does sound to be gated to be evaluated by both specialist as well as his primary care. I am questioning if some of the symptoms that he had today may have been associated with increased anxiety as he did suddenly become short of breath and develop tightness and dizziness when he entered into the PFT station. Will discuss further with RT Spoke with RT, he advised that he was very difficult to get a sat on- unclear how acurate the low sat was. He states that the hands were cold and patient was moving frequently. He reports that it was the patients complaint of chest tightness that prompted him to send the patietn to the ED. Spoke with regarding evaluations here. He does have hx of panic attacks and anxiety. She reports it has been increasing recently with the dx of carotid stenosis and other comorbidities. She advised that htey are not sure where to start [facility] care as he has had cardiac issues (ie. a.fib, CHF, coronary artery disease), carotid stenosis, pulmonary issues s/p COVID. Spoke with the patient's primary care Office, was able to speak with triage nurse as the clinician was not in office today. She advised that the patient and his have had several appointments recently and there is a large component of anxiety. Patient certainly does have a number of comorbidities as well, and I expressed the concern both from the patient as well as the family, that the order in which these are being addressed seems to be slightly confusing and encouraged close follow-up plan. Primary care advised that they will ensure that this is able to happen and consider getting a personal carer involved to help organize the order of the upcoming evaluations and appointments. I discussed disposition with the patient and his . They feel comfortable at this time to be able to go home. He will continue to monitor his symptoms. Advise that he hold off on the PFT until he feels that his other, more pressing, medical needs have been addressed such as the carotid artery stenosis and continued concern for heart failure. I did advise that this does seem to be well-controlled medically at this point but they will discuss this further with cardiology. Strict return precautions were discussed. All of their questions and concerns were addressed and they are in agreement this plan. PFSH All Active Problems (Updated 11/12/24 @ 12:59 by MIGUELITO Phelps) Shortness of breath (Acute) Chest tightness (Acute) More than 50 percent stenosis of right internal carotid artery (Acute) Dehydration symptoms (Acute) Hypercalcemia (Acute) Nausea & vomiting (Acute) Asymmetrical sensorineural hearing loss (Acute) Pituitary mass (Acute) Tinnitus, bilateral (Acute) Sensorineural hearing loss of both ears (Acute) Social History Smoking/Tobacco Use Status: Former Tobacco Use Smoking risk assessment performed?: Yes Alcohol Intake: never Drug use: Never Substance use type: does not use Do you feel safe at home: Yes Do you feel safe in your relationship?: Yes
[2024-11-12 09:14] LABS: Abs Immature Grans 0.01 10^3/uL (0.0-0.06); Absolute Basophil Count 0.04 10^3/uL (0.0-0.2); Absolute Eosinophil Count 0.13 10^3/uL (0.0-0.7); Absolute Lymphocyte Count 1.23 10^3/uL (1.2-3.4); Absolute Monocyte Count 0.41 10^3/uL (0.1-0.8); Absolute Neutrophil Count 4.49 10^3/uL (1.2-6.7); Basophils % 0.6 %; Eosinophils % 2.1 %; HCT 38.8 % (40.0-50.0); HGB 12.7 g/dL (13.5-17.5); Immature Grans % 0.2 %; Lymphocytes % 19.5 %; MCH 29.8 pg (27.0-33.0); MCHC 32.7 % (32.0-36.0); MCV 91 fL (80-95); MPV 10.6 fL (8.0-11.0); Monocytes % 6.5 %; Neutrophils % 71.1 %; Platelet Count 211 10^3/uL (130-400); RBC 4.26 10^6/uL (4.36-5.78); RDW-SD 49.6 fL; WBC 6.31 10^3/uL (4.4-10.8)
[2024-11-12 09:27] LABS: INR 1.1 (0.9-1.1); PTT Activated 28.5 sec (20.6-30.2)
[2024-11-12 09:37] LABS: ALT 71 U/L (16-63); AST 38 U/L (15-37); Albumin 4.3 g/dL (3.4-5.0); Alkaline Phosphatase 95 U/L (46-116); Anion Gap 13.4 mmol/L (3-11); BUN 22 mg/dL (7-18); Bilirubin, Total 0.7 mg/dL (0.2-1.0); CO2 25.6 mmol/L (21.0-32.0); CREATININE 0.9 mg/dL (0.70-1.30); Calcium 11.1 mg/dL (8.5-10.1); Chloride 100 mmol/L (98-107); Estimated GFR 89.62 (mL/min/1.73m2); Glucose 109 mg/dL (74-106); Magnesium 1.9 mg/dL (1.8-2.4); NT-proBNP 374 pg/mL (<300); Potassium 4.1 mmol/L (3.5-5.1); Sodium 139 mmol/L (136-145); Total Protein 7.4 g/dL (6.4-8.2); Troponin I 22 ng/L (<or=76)
--- NOTE | 2024-11-12 10:16 | DI.RAD_ITS ---
Exam(s) XR CHEST 2V PA LATERAL EXAM: XR CHEST 2V PA LATERAL CLINICAL HISTORY: SOB, chest tightness TECHNIQUE: 2D digital imaging was performed of the chest. Three images were obtained. PA and lateral views were obtained. COMPARISON: No exams were available for comparison FINDINGS: MEDIASTINUM: Normal. HEART: Normal. PULMONARY VASCULATURE: Normal. LUNGS: Clear. PLEURAL SPACE: No pleural effusion or pneumothorax. BONE:Within normal limits for the patient's age. Orthopedic screws are seen in both humeral heads. OTHER FINDINGS:Normal. IMPRESSION: No acute pulmonary findings. DATA REPOSITORY: RADIATION DOSE DELIVERED:
[2024-11-12] MEDS: Normal Saline 1,000 ML 1000 ML IV (10:22)
[2024-11-12] MEDS: Aspirin 81 MG CHEW 162 MG CH (10:22)
[2024-11-12 10:59] LABS: Troponin I 20 ng/L (<or=76)
[2024-11-12 12:31] LABS: Troponin I 20 ng/L (<or=76)
== END 2024-11-12 13:14 | disposition home or self-care (01) ==
PROVIDERS: Emergency Provider Physician Assistant; PCP Nurse Practitioner Family
DX: E83.52 Hypercalcemia (principal); R06.02 Shortness of breath; R07.89 Other chest pain; I45.19 Other right bundle-branch block; Z79.01 Long term (current) use of anticoagulants; Z79.02 Long term (current) use of antithrombotics/antiplatelets; Z87.891 Personal history of nicotine dependence
CPT/HCPCS: 36415; 80053; 82962; 93005; 99285; 71046; 83735; 83880; 84484; 85025; 85610; 85730; 93010; 99284

== ENCOUNTER 2024-11-12 11:52 | Outpatient (REF) | payer MEDICARE, SELFPAY ==
[2024-11-13 08:53] LABS: Calcium Urine 14.7 mg/dL (See Note); Calcium Urine 24 hr 257 mg/24hr (100-300); Timed Urine Volume 1750 mL
== END 2024-11-12 11:53 | disposition home or self-care (01) ==
LOC: LBN 11:52
PROVIDERS: PCP Nurse Practitioner Family; Visit Provider Internal Medicine Endocrinology, Diabetes & Metabolism
DX: E83.52 Hypercalcemia (principal)
CPT/HCPCS: 81050; 82340

== ENCOUNTER 2024-12-15 09:00 | Outpatient (RCR) | payer MEDICARE, SELFPAY | END 2024-12-16 23:59 | disposition home or self-care (01) | LOC: CR 09:00 | PROVIDERS: PCP Nurse Practitioner Family; Visit Provider Internal Medicine Cardiovascular Disease | DX: I25.118 Atherosclerotic heart disease of native coronary artery with other forms of angina pectoris (principal); Z51.89 Encounter for other specified aftercare | CPT/HCPCS: S9472 ==

== ENCOUNTER 2025-01-03 01:46 | Outpatient (CLI) | payer MEDICARE, SELFPAY ==
--- NOTE | 2025-01-03 | DI.NM_ITS ---
Exam(s) NM PARATHYROID SCAN EXAM: NM PARATHYROID SCAN CLINICAL HISTORY: Primary hyperparathyroidism, E21.3 TECHNIQUE: Performed with IV injection of 20 millicuries technetium 99 - sestamibi. Imaging performed both immediate and delayed 2 hours COMPARISON: CT CT BRAIN NECK CTA from 11/05/2024 FINDINGS: Immediate images reveal a significant focus of abnormal radiopharmaceutical uptake in the left side of the neck in the region the lower pole of the left thyroid lobe. There is no other abnormal focal uptake seen in this region of the neck nor in the mediastinum. The delayed images reveal this focus of sestamibi to persist at this location. IMPRESSION: Findings are concerning for uptake in a possible parathyroid adenoma on the left side which would be behind the lower aspect of the left thyroid lobe. There is no abnormal uptake on the right side of the neck at this level. The next step appear should be thyroid ultrasound examination to ensure that there is no nodule in the thyroid gland itself at this level. Thyroid nodules or cancers can sometimes mimic parathyroid adenomas on sestamibi scanning; hence the reason for performing thyroid ultrasound exam.
== END 2025-01-03 02:06 ==
PROVIDERS: PCP Nurse Practitioner Family; Visit Provider Student in an Organized Health Care Education/Training Program
DX: E21.3 Hyperparathyroidism, unspecified (principal); R93.89 Abnormal findings on diagnostic imaging of other specified body structures
CPT/HCPCS: 78070

== ENCOUNTER 2025-01-14 09:00 | Outpatient (RCR) | payer MEDICARE, SELFPAY | END 2025-01-16 23:59 | disposition home or self-care (01) | LOC: CR 09:00 | PROVIDERS: PCP Nurse Practitioner Family; Visit Provider Internal Medicine Cardiovascular Disease | DX: I25.118 Atherosclerotic heart disease of native coronary artery with other forms of angina pectoris (principal); Z51.89 Encounter for other specified aftercare | CPT/HCPCS: S9472 ==

== ENCOUNTER 2025-01-17 09:57 | Observation (INO) | payer MEDICARE, SELFPAY ==
[2025-01-17] VITALS (59 sets, daily range): BP systolic 104–158; BP diastolic 53–70; PULSE 53–86; RESP 11–28; TEMP 36.4–36.9; O2SAT 94–99
--- NOTE | 2025-01-17 10:45 | RT.EKG_ITS ---
APPROVED REPORT Exam: Resting ECG Reason for Exam: epigastric pain Patient Location: E HR:59 bpm ECG Measurements Heart Rate 59 AXIS IA 190 P 63 QRSd 139 QRS 79 QT 440 T 8 QTc 437 Conclusion Sinus bradycardia...rate< 60 Right bundle branch block...QRSd>120, terminal axis(90,270) No Occlusion NM
--- NOTE | 2025-01-17 10:45 | DI.CT_ITS ---
Exam(s) CT THORAX ABD/PEL CTA EXAM: CT THORAX ABD/PEL CTA CLINICAL HISTORY: epigastric pain, vomiting blood. TECHNIQUE: Imaging Protocol: Axial CT angiography was performed with multi- slice acquisition and multi-planar and/or 3D reconstructions. Lung Computer Aided Detection (CAD) was utilized. CONTRAST MATERIAL: Intravenous: Omnipaque 350 contrast volume:100 mL Oral: No COMPARISON: CT CT HEART FUNC (NON-CORONARY) W from 09/17/[address] ANGIOGRAM ABDOMEN AND PELVIS W CONTRAST (GENERIC) from 09/17/[address] ABDOMEN PELVIS W from 10/17/2024 CT,NM NM PARATHYROID SCAN from 01/03/2025 FINDINGS: CHEST: Tracheobronchial tree: Patent where visualized. There is no evidence of bronchiectasis. Pulmonary parenchyma: No consolidation or dominant measurable mass. No architectural distortion. There are no new or suspicious pulmonary nodules present. Pulmonary Arteries: No evidence of filling defect to suggest pulmonary emboli. Mediastinum and Urszula: No dominant adenopathy or fluid collection. The esophagus is unremarkable. Visualized thyroid: Unremarkable. Pleura: No effusion or pneumothorax. Heart: The heart is not dilated. Coronary artery calcifications are present. No pericardial effusion. Aorta: Thoracic aorta non-dilated. There is no evidence of dissection. Atherosclerotic calcification is present. Soft Tissues: Unremarkable. Bones: Within normal limits for the patient's age. ABDOMEN AND PELVIS: Abdomen: Celiac axis/mesenteric arteries: No evidence of occlusion or significant stenosis. Renal Arteries: No evidence of occlusion or significant stenosis. There is a single renal artery perfusing each kidney. Aorta: No evidence of occlusion or significant stenosis. No aneurysm or dissection. Pelvis: Iliac Arteries: No evidence of occlusion or significant stenosis. Common Femoral Arteries: No evidence of occlusion or significant stenosis. ABDOMEN: Liver: Normal density. No measurable mass. Portal, superior mesenteric and splenic veins: Unremarkable. Gallbladder and Biliary Tract: The gallbladder is not visualized. It is presumed to be surgically absent. There is no biliary ductal dilatation. Pancreas: Normal density, no abnormal calcifications or inflammatory process. Spleen: Normal. Adrenals: No masses seen. Kidneys: Normal size, contour and axis. No radiodense stones or obstructive uropathy. No masses seen. Bowel: There is diverticulosis of the colon without evidence of acute diverticulitis. The bowel shows no evidence of obstruction or bowel wall thickening. There is no evidence of appendicitis. Peritoneal Cavity: No ascites, collection or mesenteric inflammatory response. No free air. Lymph Nodes: Within normal limits. Bones: Within normal limits for the patient's age. There is marked central spinal canal stenosis at L3-L4. There are marked degenerative changes seen in the hips bilaterally. Soft Tissues: The patient appears to be status post bilateral inguinal hernia repairs. There is a small fat containing umbilical hernia. PELVIS: Bladder: Symmetric distention, no gross wall thickening. Reproductive Organs: Unremarkable as visualized. Lymph Nodes: Within normal limits. Bones: Within normal limits for the patient's age. IMPRESSION: 1. No acute abdominal or pelvic process. 2. Colonic diverticulosis without evidence of acute diverticulitis. 3. Multilevel degenerative changes in the lumbar spine resulting in marked central spinal canal stenosis at L3-L4. 4. There is no evidence of a thoracic aortic dissection or aneurysm. 5. No evidence of pulmonary emboli. 6. No acute pulmonary process. RADIATION DOSE DELIVERED: 684.99mGy.cm Total DLP DATA REPOSITORY: All CT scans at this facility are submitted to the National Radiology Data Registry (NRDR) Dose Index Registry (DIR) with the [employer] (ACR). RADIATION OPTIMIZATION: All CT scans at this facility use at least one of these dose optimization techniques: automated exposure control; mA and/or kV adjustment per patient size (includes targeted exams where dose is matched to clinical indication); or iterative reconstruction.
[2025-01-17 11:05] LABS: Abs Immature Grans 0.01 10^3/uL (0.0-0.06); HCT 36.8 % (40.0-50.0); HGB 12.2 g/dL (13.5-17.5); Immature Grans % 0.2 %; MCH 30.4 pg (27.0-33.0); MCHC 33.2 % (32.0-36.0); MCV 92 fL (80-95); MPV 10.4 fL (8.0-11.0); Platelet Count 205 10^3/uL (130-400); RBC 4.01 10^6/uL (4.36-5.78); RDW 14.3 % (11.8-14.1); RDW-SD 48.3 fL; WBC 5.34 10^3/uL (4.4-10.8)
[2025-01-17 11:13] LABS: INR 1.1 (0.9-1.1); Prothrombin Time 11.1 sec (9.1-11.1)
[2025-01-17 11:19] LABS: ALT 46 U/L (16-63); AST 28 U/L (15-37); Albumin 4.1 g/dL (3.4-5.0); Alkaline Phosphatase 79 U/L (46-116); Anion Gap 7.6 mmol/L (3-11); BUN 18 mg/dL (7-18); Bilirubin, Total 0.8 mg/dL (0.2-1.0); CO2 29.4 mmol/L (21.0-32.0); Chloride 103 mmol/L (98-107); Estimated GFR 96.69 (mL/min/1.73m2); Glucose 98 mg/dL (74-106); Lipase 31 U/L (<78); Potassium 4.5 mmol/L (3.5-5.1); Sodium 140 mmol/L (136-145); Total Protein 7.2 g/dL (6.4-8.2)
[2025-01-17 11:22] LABS: Calcium 11.5 mg/dL (8.5-10.1); Troponin I 21 ng/L (<or=76)
[2025-01-17] MEDS: Pantoprazole 40 MG VIAL IVP (11:27)
[2025-01-17] MEDS: diphenhydrAMINE 50 MG/ML VIAL 12.5 MG IVP (11:28)
[2025-01-17] MEDS: FAMOTIDINE 20 MG in Normal Saline 100 ML 400 MG IVPB (11:28)
[2025-01-17] MEDS: Normal Saline - Diluent 50 ML VIAL IJ (11:38)
[2025-01-17] MEDS: Normal Saline Flush 10 ML SYR IVP (11:39)
[2025-01-17] MEDS: Omnipaque 350 MG/ML 100 ML BTL IJ (11:39)
[2025-01-17 12:27] LABS: Troponin I 17 ng/L (<or=76)
[2025-01-17 14:08] LABS: Abs Immature Grans 0.01 10^3/uL (0.0-0.06); HCT 34.2 % (40.0-50.0); HGB 11.2 g/dL (13.5-17.5); Immature Grans % 0.2 %; MCH 30.4 pg (27.0-33.0); MCHC 32.7 % (32.0-36.0); MCV 93 fL (80-95); MPV 10.3 fL (8.0-11.0); Platelet Count 179 10^3/uL (130-400); RBC 3.68 10^6/uL (4.36-5.78); RDW 14.5 % (11.8-14.1); RDW-SD 49.6 fL; WBC 5.40 10^3/uL (4.4-10.8)
--- NOTE | 2025-01-17 15:27 | W.ED.GENAD ---
Discharge Plan Disposition Patient Disposition: Admit to [facility] Discharge Details Clinical Impression: Acute upper gastrointestinal bleeding, Anemia Primary Care Provider: Phuong Gar ED Provider: Stephanie Johnson Home Meds and New Rx's Prescriptions: No Action tamsulosin 0.4 mg capsule 0.4 mg PO DAILY buspirone 5 mg tablet 5 mg PO TID PRN cholecalciferol (vitamin D3) 25 mcg (1,000 unit) tablet 25 mcg PO DAILY Patient Comments: TAKE 1 TABLET BY MOUTH EVERY DAY furosemide 40 mg tablet 40 mg PO DAILY PRN Patient Comments: TAKE 1 TABLET BY MOUTH EVERY DAY atorvastatin 80 mg tablet 80 mg PO DAILY amiodarone 200 mg tablet 200 mg PO DAILY Patient Comments: TAKE 2 TABLETS DAILY FOR 7 DAYS THEN REDUCE DOSE TO 1 TABLET DAILY UNTIL FOLLOW UP sertraline 100 mg tablet 150 mg PO DAILY clopidogrel 75 mg tablet 75 mg PO DAILY cabergoline 0.5 mg tablet 0.5 mg PO DIRECTED Rx Instructions: mon and fri omeprazole 20 mg capsule,delayed release(DR/EC) 20 mg PO DAILY Eliquis 5 mg tablet 5 mg PO BID ondansetron 4 mg tablet,disintegrating 4 mg PO Q8H PRNQty: 10 0RF HPI General Date/Time Provider Initiated Documentation: 01/17/25 10:24. HPI Narrative: This 74-year-old male with history of pituitary adenoma coronary disease with stent placement in June on Eliquis and clopidogrel, recent diagnosis of orthostatic hypotension placed on midodrine at [facility], history of cardiomyopathy ejection fraction 45%, presents with report of waking up this morning with some blood on his pillow then walking to the bathroom having some epigastric pain and vomiting x 2 the second episode had some rust colored blood which she describes as approximately 1/2-1 In the toilet. He remains slightly nauseous. He did have half a seltzer last evening but does not drink regularly. He denies any current weakness or dizziness. He denies any chest pain or shortness of breath. He does any falls or injuries or dark tarry stools. He has not been taking any ibuprofen but he is taking the computer well and Eliquis daily as instructed. Denies history of bleeding in the past although he did just have an extended stay at [facility] for some weakness associated with cardiac rehab had a complete cardiac evaluation a month ago. Related Data Home Medications ?Medication ?Instructions ?Recorded ?Confirmed amiodarone 200 mg tablet 200 mg PO DAILY 10/17/24 01/17/25 apixaban 5 mg tablet (Eliquis) 5 mg PO BID 10/17/24 01/17/25 atorvastatin 80 mg tablet 80 mg PO DAILY 10/17/24 01/17/25 cabergoline 0.5 mg tablet 0.5 mg PO DIRECTED 10/17/24 01/17/25 clopidogrel 75 mg tablet 75 mg PO DAILY 10/17/24 01/17/25 furosemide 40 mg tablet 40 mg PO DAILY PRN 10/17/24 01/17/25 omeprazole 20 mg capsule,delayed 20 mg PO DAILY 10/17/24 01/17/25 release ondansetron 4 mg disintegrating 4 mg PO Q8H PRN #10 tabs 10/17/24 01/17/25 tablet sertraline 100 mg tablet 150 mg PO DAILY 10/17/24 01/17/25 buspirone 5 mg tablet 5 mg PO TID PRN 11/05/24 01/17/25 tamsulosin 0.4 mg capsule 0.4 mg PO DAILY 11/05/24 01/17/25 cholecalciferol (vitamin D3) 25 25 mcg PO DAILY 01/17/25 01/17/25 mcg (1,000 unit) tablet Previous Rx's ?Medication ?Instructions ?Recorded ondansetron 4 mg disintegrating 4 mg PO Q8H PRN #10 tabs 10/17/24 tablet Allergies Allergy/AdvReac Type Severity Reaction Status Date / Time Latex, Natural Rubber Allergy Mild Other (See Verified 01/17/25 10:07 Comment) Penicillins Allergy Mild Skin Rash Verified 01/17/25 10:07 simvastatin AdvReac Intermediate Other (See Verified 01/17/25 10:07 Comment) General Stated Complaint: Nausea/Vomit/Diar TAE: 3 Exam Narrative Exam Narrative: Patient is alert and oriented, he is in no acute distress, he has some mild epigastric pain no abdominal bruit or pulsatile mass oropharynx patent uvula midline no blood no blood noted in the naris, he has a small abrasion to his right ear that is coagulated nontender rectal exam does not display any stool in the vault , cardiac murmur noted, lungs clear, no respiratory distress distal pulses intact with Doppler Course Vital Signs Vital signs: Vital Signs Pulse 67 01/17/25 10:01 Respiratory Rate 18 01/17/25 10:01 Blood Pressure 104/64 01/17/25 10:01 Pulse Oximetry 99 01/17/25 10:01 Pulse 62 01/17/25 15:00 Pulse 62 01/17/25 15:00 Respiratory Rate 16 01/17/25 15:00 Blood Pressure 130/65 01/17/25 14:16 Blood Pressure Mean 85 01/17/25 14:16 Blood Pressure Position Sitting 01/17/25 11:29 Pulse Oximetry 94 01/17/25 15:00 Oxygen Delivery Method Room Air 01/17/25 10:01 Oxygen Flow Rate 0 01/17/25 10:01 Pain Level 1 01/17/25 11:29 Lab/Test Results Lab/Test Results: Laboratory Tests Range/Units 01/17/25 01/17/25 01/17/25 10:55 12:00 14:00 WBC (4.4-10.8) 10^3/uL 5.34 5.40 RBC (4.36-5.78) 10^6/uL 4.01 L 3.68 L Hgb (13.5-17.5) g/dL 12.2 L 11.2 L Hct (40.0-50.0) % 36.8 L 34.2 L MCV (80-95) fL 92 93 MCH (27.0-33.0) pg 30.4 30.4 MCHC (32.0-36.0) % 33.2 32.7 RDW (11.8-14.1) % 14.3 H 14.5 H Plt Count (130-400) 10^3/uL 205 179 MPV (8.0-11.0) fL 10.4 10.3 Immature Gran % % 0.2 0.2 Neutrophils % % 77.0 72.8 Lymphocytes % % 12.4 15.9 Monocytes % % 6.9 7.4 Eosinophils % % 2.8 3.0 Basophils % % 0.7 0.7 Nucleated RBC % (0.0-0.3) % 0.0 0.0 Absolute Neutrophils (1.2-6.7) 10^3/uL 4.11 3.93 Absolute Lymphocytes (1.2-3.4) 10^3/uL 0.66 L 0.86 L Absolute Monocytes (0.1-0.8) 10^3/uL 0.37 0.40 Absolute Eosinophils (0.0-0.7) 10^3/uL 0.15 0.16 Absolute Basophils (0.0-0.2) 10^3/uL 0.04 0.04 PT (9.1-11.1) sec 11.1 INR (0.9-1.1) 1.1 Sodium (136-145) mmol/L 140 Potassium (3.5-5.1) mmol/L 4.5 Chloride (98-107) mmol/L 103 Carbon Dioxide (21.0-32.0) mmol/L 29.4 Anion Gap (3-11) mmol/L 7.6 BUN (7-18) mg/dL 18 Creatinine (0.70-1.30) mg/dL 0.7 Est GFR (CKD-EPI 2020) (mL/min/1.73m2) 96.69 Glucose (74-106) mg/dL 98 Calcium (8.5-10.1) mg/dL 11.5 H Total Bilirubin (0.2-1.0) mg/dL 0.8 AST (15-37) U/L 28 ALT (16-63) U/L 46 Alkaline Phosphatase (46-116) U/L 79 Troponin I (<or=76) ng/L 21 17 Total Protein (6.4-8.2) g/dL 7.2 Albumin (3.4-5.0) g/dL 4.1 Lipase (<78) U/L 31 ABO/Rh A Positive Antibody Screen NEGATIVE Medical Decision Making Results: CTA chest abdomen pelvis was ordered sected epigastric pain with upper GI bleeding there is no acute abnormality per radiology interpretation of my review CBC CMP Trope EKG and the remainder labs do not show significant acute abnormality per radiologist interpretation of my review. I rechecked a CBC at the 3-hour russell and patient did drop his hemoglobin by approximately 1 point. Assessment and plan: Patient with concern for upper GI bleed remains hemodynamically stable in the emergency department actually held midodrine because his blood pressure was 160/70 at 1 point. I gave Protonix initially upon arrival patient also received antiemetics 12.5 of Benadryl given current medications and Pepcid. Patient feeling marked improvement. I spoke with surgery and at this time she asked that we do relay to the patient that without willingness to receive blood products secondary to being a [employer] we have limited to offer this patient however he is quite stable and he is aware that should he rebleed we do not have the necessary interventions and he may need to be transferred to tertiary care center which could complicate his case. He understands the risks associated with his decision and being a smaller hospital. Patient and his are both in the room when we had this discussion. I gave 40 mg of Protonix I will initiate Protonix drip. Case was discussed with Dr. Lambert, hospitalist who is agreeable to admitting patient at this time. Patient has remained hemodynamically stable and does not require blood products at time of my assessment PFSH All Active Problems (Updated 01/17/25 @ 15:37 by MIGUELITO Fleming) Anemia (Chronic) Acute upper gastrointestinal bleeding (Acute) Asymmetrical sensorineural hearing loss (Acute) Pituitary mass (Acute) Tinnitus, bilateral (Acute) Sensorineural hearing loss of both ears (Acute) Social History Smoking/Tobacco Use Status: Former Tobacco Use Smoking risk assessment performed?: Yes Alcohol Intake: never Drug use: Never Substance use type: does not use Do you feel safe at home: Yes Do you feel safe in your relationship?: Yes
--- NOTE | 2025-01-17 16:12 | W.PM.HP.N ---
Date of service: 01/17/25 Time of Service: 16:13 Assessment and Plan Assessment and plan (1) Pituitary mass: Status: Acute Assessment and plan: Pt reports that he is supposed to see a Endocrine Surgeon at [facility] for a mass on his thyroid or parathyroid. His medical record indicates a possible pituitary mass. The reason this is an issue is because of his hypercalcemia which has been present since 07/14/24 to one degree or another. Will see if I can get more information in regards to his surgeon and plan at [facility] (2) Acute upper gastrointestinal bleeding: Status: Acute Assessment and plan: clear liquids and monitor. On ppi drip. GS consulted (3) Anemia: Status: Chronic Assessment and plan: no need for xfusion at this point. Pt is a Christian and refused blood products (4) Coronary artery disease: Status: Chronic Assessment and plan: Recent stent deployment and started on plavix. It is possible to use eliquis for his afib as well as his stent but will defer to his Bottom Finisher. Would continue anticoagulation despite recent GIB 2/2 concerns about in-stent stenosis off of plavix. (5) Atrial fibrillation: Status: Chronic Assessment and plan: pt currently is in NSR with RBBB. (6) Weight loss: Status: Acute Assessment and plan: Exact etiology is unknown but is a bit worrisome. Pt states his appetite is good and pt denies B symptoms. Pt denies abd pain with eating or dentalgia (7) Hypercalcemia: Status: Acute Assessment and plan: exact etiology is unknown. Will give calcitonin and ivf and recheck in am. History of Present Illness History of Present Illness Chief Complaint: GIB Narrative: This is a 74-year-old gentleman has had multiple [facility] including having a stent placed approximately 10 days ago and then having to be readmitted to the hospital for severe dizziness and weakness. Patient was seen at [facility] where he stated that at [facility] for his workup for his dizziness. Patient states that the workup was ultimately benign and he was diagnosed with orthostatic hypotension and vasovagal response. Patient was started on midodrine. Approximately in May the patient was seen in outlying hospital at that point was diagnosed with A-fib and started on Eliquis. Patient further states that he has an appointment with an business office director for a mass. Reviewed data from October of this year though he did not get his CT angiogram which showed less than 50% stenosis on the left and 7 to 70% to 90% on the right. patient did endorse a mass on either his thyroid gland or his parathyroid gland and states that it was diagnosed here but in reviewing his radiographic reports I do not see any mention of this. Patient presents today with 1 episode of hematemesis this a.m. ED physician did reach out to general surgery Dr. Mcclure who recommends overnight observation clear liquid diet and Protonix drip. Review of Systems All systems reviewed & are unremarkable except as noted in HPI and below PFSH All Active Problems (Updated 01/17/25 @ 16:36 by Dm Lambert MD) Hypercalcemia (Acute) Weight loss (Acute) Atrial fibrillation (Chronic) Coronary artery disease (Chronic) Anemia (Chronic) Acute upper gastrointestinal bleeding (Acute) Asymmetrical sensorineural hearing loss (Acute) Pituitary mass (Acute) Tinnitus, bilateral (Acute) Sensorineural hearing loss of both ears (Acute) Social History Smoking/Tobacco Use Status: Former Tobacco Use Smoking risk assessment performed?: Yes Alcohol Intake: never Drug use: Never Substance use type: does not use Do you feel safe at home: Yes Do you feel safe in your relationship?: Yes Meds Allergies and Home Medications Allergies Allergy/AdvReac Type Severity Reaction Status Date / Time Latex, Natural Rubber Allergy Mild Other (See Verified 01/17/25 10:07 Comment) Penicillins Allergy Mild Skin Rash Verified 01/17/25 10:07 simvastatin AdvReac Intermediate Other (See Verified 01/17/25 10:07 Comment) Home Medications ?Medication ?Instructions ?Recorded ?Confirmed ?Type amiodarone 200 mg tablet 200 mg PO DAILY 10/17/24 01/17/25 History apixaban 5 mg tablet (Eliquis) 5 mg PO BID 10/17/24 01/17/25 History atorvastatin 80 mg tablet 80 mg PO DAILY 10/17/24 01/17/25 History cabergoline 0.5 mg tablet 0.5 mg PO DIRECTED 10/17/24 01/17/25 History clopidogrel 75 mg tablet 75 mg PO DAILY 10/17/24 01/17/25 History furosemide 40 mg tablet 40 mg PO DAILY PRN 10/17/24 01/17/25 History omeprazole 20 mg capsule,delayed 20 mg PO DAILY 10/17/24 01/17/25 History release ondansetron 4 mg disintegrating 4 mg PO Q8H PRN #10 tabs 10/17/24 01/17/25 Rx tablet sertraline 100 mg tablet 150 mg PO DAILY 10/17/24 01/17/25 History buspirone 5 mg tablet 5 mg PO TID PRN 11/05/24 01/17/25 History tamsulosin 0.4 mg capsule 0.4 mg PO DAILY 11/05/24 01/17/25 History cholecalciferol (vitamin D3) 25 25 mcg PO DAILY 01/17/25 01/17/25 History mcg (1,000 unit) tablet Results Labs 01/17/25 14:00 01/17/25 10:55 Labs: Laboratory Results - last 24 hr 01/17/25 01/17/25 01/17/25 10:55 12:00 14:00 WBC 5.34 5.40 RBC 4.01 L 3.68 L Hgb 12.2 L 11.2 L Hct 36.8 L 34.2 L MCV 92 93 MCH 30.4 30.4 MCHC 33.2 32.7 RDW 14.3 H 14.5 H Plt Count 205 179 MPV 10.4 10.3 Immature Gran % 0.2 0.2 Neutrophils % 77.0 72.8 Lymphocytes % 12.4 15.9 Monocytes % 6.9 7.4 Eosinophils % 2.8 3.0 Basophils % 0.7 0.7 Nucleated RBC % 0.0 0.0 Absolute Neutrophils 4.11 3.93 Absolute Lymphocytes 0.66 L 0.86 L Absolute Monocytes 0.37 0.40 Absolute Eosinophils 0.15 0.16 Absolute Basophils 0.04 0.04 PT 11.1 INR 1.1 Sodium 140 Potassium 4.5 Chloride 103 Carbon Dioxide 29.4 Anion Gap 7.6 BUN 18 Creatinine 0.7 Est GFR (CKD-EPI 2020) 96.69 Glucose 98 Calcium 11.5 H Total Bilirubin 0.8 AST 28 ALT 46 Alkaline Phosphatase 79 Troponin I 21 17 Total Protein 7.2 Albumin 4.1 Lipase 31 ABO/Rh A Positive Antibody Screen NEGATIVE Last Vital Signs Temp 36.9 C 01/17/25 16:11 Pulse 62 01/17/25 15:00 Resp 16 01/17/25 15:00 BP 130/65 01/17/25 14:16 Pulse Ox 94 01/17/25 15:00 Time Spent Time spent with Patient: 55-74 minutes Time was spent: preparing to see the patient(eg.review tests), obtaining and/or reviewing separately otained hiistory, ordering medications,tests, procedures, referring, communicating with other health critical care cns, indepentently interpreting results, counseling the patient and care coordination
[2025-01-17] MEDS: PANTOPRAZOLE 80 MG in Normal Saline 100 ML 10 MG IV (16:24)
--- NOTE | 2025-01-17 17:12 | W.PC.ACHO ---
Registration Status: REG ER Primary Language: Preferred Language: ED Information & Data Chief Complaint Nausea/Vomit/Diar 01/17/25 15:33 Triage Note Patient presented today 01/17/25 10:01 state he woke up this morning and noticed dry blood on his pillow. State he did not feel good this morning and he vomited x 2 this morning with dark brown shantanu color. Patient state his stomach feels heavy and he is known to have celiac disease and he is also taking blood thinners due to cardiac problems Most Recent Vital Signs Temperature 36.9 C 01/17/25 16:11 Temperature Source Oral 01/17/25 16:11 Pulse 61 01/17/25 17:01 Pulse 63 01/17/25 17:01 Respiratory Rate 14 01/17/25 17:01 Blood Pressure 142/65 H 01/17/25 17:01 Blood Pressure Mean 92 01/17/25 17:01 Blood Pressure Position Sitting 01/17/25 11:29 Pulse Oximetry 98 01/17/25 17:01 Oxygen Delivery Method Room Air 01/17/25 10:01 Oxygen Flow Rate 0 01/17/25 10:01 Pain Level 1 01/17/25 11:29 Allergies Latex, Natural Rubber Allergy (Mild, Verified 01/17/25 10:07) Other (See Comment) Skin breakdown Penicillins Allergy (Mild, Verified 01/17/25 10:07) Skin Rash simvastatin Adverse Reaction (Intermediate, Verified 01/17/25 10:07) Other (See Comment) muscle aches Active Medications Generic Name Dose Route Start Last Admin Trade Name Freq PRN Reason Stop Dose Admin Pantoprazole Sodium 80 mg/ 100 mls @ 10 mls/hr 01/17/25 15:30 01/17/25 16:24 Sodium Chloride IV 10 mls/hr INFUSION DENY Administration Iohexol 100 ml 01/17/25 11:45 01/17/25 11:39 Omnipaque 350 Mg/Ml 100 Ml Btl IJ 02/16/25 23:59 100 ml DIRECTED DENY Administration Sodium Chloride 0 ml 01/17/25 11:37 01/17/25 11:39 Normal Saline Flush 10 Ml Syr IVP 10 ml PRN PRN Administration Sodium Chloride 50 ml 01/17/25 11:45 01/17/25 11:38 Normal Saline - Diluent 50 Ml Vial IJ 50 ml DIRECTED DENY Administration IV IV Catheter Gauge [Right 18 Antecubital] Diet Orders Category Date Time Status Regular/Normal [DIET] Nutrition 01/17/25 Dinner Active Diagnostics 01/17/25 01/17/25 01/17/25 Range/Units 14:00 12:00 10:55 WBC 5.40 5.34 (4.4-10.8) 10^3/uL RBC 3.68 L 4.01 L (4.36-5.78) 10^6/uL Hgb 11.2 L 12.2 L (13.5-17.5) g/dL Hct 34.2 L 36.8 L (40.0-50.0) % MCV 93 92 (80-95) fL MCH 30.4 30.4 (27.0-33.0) pg MCHC 32.7 33.2 (32.0-36.0) % RDW 14.5 H 14.3 H (11.8-14.1) % Plt Count 179 205 (130-400) 10^3/uL MPV 10.3 10.4 (8.0-11.0) fL Immature Gran % 0.2 0.2 % Neutrophils % 72.8 77.0 % Lymphocytes % 15.9 12.4 % Monocytes % 7.4 6.9 % Eosinophils % 3.0 2.8 % Basophils % 0.7 0.7 % Nucleated RBC % 0.0 0.0 (0.0-0.3) % Absolute Neutrophils 3.93 4.11 (1.2-6.7) 10^3/uL Absolute Lymphocytes 0.86 L 0.66 L (1.2-3.4) 10^3/uL Absolute Monocytes 0.40 0.37 (0.1-0.8) 10^3/uL Absolute Eosinophils 0.16 0.15 (0.0-0.7) 10^3/uL Absolute Basophils 0.04 0.04 (0.0-0.2) 10^3/uL PT 11.1 (9.1-11.1) sec INR 1.1 (0.9-1.1) Sodium 140 (136-145) mmol/L Potassium 4.5 (3.5-5.1) mmol/L Chloride 103 (98-107) mmol/L Carbon Dioxide 29.4 (21.0-32.0) mmol/L Anion Gap 7.6 (3-11) mmol/L BUN 18 (7-18) mg/dL Creatinine 0.7 (0.70-1.30) mg/dL Est GFR (CKD-EPI 2020) 96.69 (mL/min/1.73m2) Glucose 98 (74-106) mg/dL Calcium 11.5 H (8.5-10.1) mg/dL Total Bilirubin 0.8 (0.2-1.0) mg/dL AST 28 (15-37) U/L ALT 46 (16-63) U/L Alkaline Phosphatase 79 (46-116) U/L Troponin I 17 21 (<or=76) ng/L Total Protein 7.2 (6.4-8.2) g/dL Albumin 4.1 (3.4-5.0) g/dL Lipase 31 (<78) U/L ABO/Rh A Positive Antibody Screen NEGATIVE Intake and Output - 24 Hour Total 01/17/25 09:57 thru 01/17/25 14:05 Intake Total 102 Balance 102 Weight 72.575 kg Intake: IV 102 Falls Risk Assessment History of Falls No History 01/17/25 11:29 Contributing Factors No Factors 01/17/25 11:29 Ambulatory Aids Independent 01/17/25 11:29 Tubes/Lines None 01/17/25 11:29 Gait Evaluation No gait disturbance 01/17/25 11:29 Cognition No cognitive impairment 01/17/25 11:29 Fall Total Score 0 01/17/25 11:29 Level of Risk Standard/Low Risk 01/17/25 11:29 Problems (Last Reviewed 10/08/24 @ 13:09 by Devin Guerra MD) Hypercalcemia (Acute) Weight loss (Acute) Atrial fibrillation (Chronic) Coronary artery disease (Chronic) Anemia (Chronic) Acute upper gastrointestinal bleeding (Acute) Pituitary mass (Acute) v v v v v v v v v Sending and/or Receiving Nurses: Please use comment section below to note any information pertinent to the patient hand-off not included above. Information / Comments: Paged at [phone] and report called at 1700. 18 G R AC. Protonix drip running 10 mL/hr. Report received from: Monie Martinez ED RN
[2025-01-17] MEDS: Normal Saline 1,000 ML 100 ML IV (18:10)
--- NOTE | 2025-01-17 19:25 | W.SURGCON ---
Date of service: 01/17/25 Time of Service: 19:25 Assessment and Plan Assessment and plan (1) Hematemesis: Status: Acute Assessment and plan: One episode at home - monitor for recurrence. Differential is broad, and he is on anticoagulant and antiplatelet agent. Anemia is mild and hgb should be rechecked in AM. Barring significant recurrence of this I recommend an outpatient elective EGD and colonoscopy to be completed when his antiplt and anticoagulant have been held safely. If he were to develop more hematemesis or significant anemia, then waiting for eliquis to wear off then scoping more urgently would be prudent. For now, as long as his hematemesis does not recur, he can be observed. CLD today regular diet and home tomorrow if he does well and remains stable. (2) Acute upper gastrointestinal bleeding: Status: Acute Assessment and plan: suspected due to report of hematemesis at home. He has had weight loss and endoscopy is appropriate for evaluation. Safer to do when off anticoagulants in an elective setting (3) Atrial fibrillation: Status: Chronic Assessment and plan: ok to continue plavix and eliquis at this time as there is no evidence of major or ongoing bleeding. cardiac comorbidities that benefit from these drugs are present and will be followed clinically. (4) Acute blood loss anemia: Status: Acute Assessment and plan: mild. monitor with plan as noted above. History of Present Illness History of Present Illness Chief Complaint: possible GI bleeding Narrative: 74yo M who takes plavix and eliquis who is admitted for observation following report of GI bleeding at home. Pt notes he had a stomach ache and then began to vomit blood. there was about a cup or so of bright and dark red blood with his second episode of emesis at home. His first emesis was bilious. He did not vomit again after the hematemesis. He presented to the ED and had normal vitals and unremarkable labwork. A repeat hgb was checked and he was found to have dropped from 12.2 to 11.2 in a short period of time. This along with his report of gross bleeding, and his anticoagulation prompted an observation stay. Pt reports he has not had any more bloody emesis. He tells me he bleeds so easily since being started on the blood thinner and the plavix after a heart attack 6 months ago. He is a jehovahs witness and does not accept blood transfusions. He has been losing some weight and appetite hasnt been great that he attributes to being weaker since his heart attack. He does cardiac rehab at [facility] three times a week to try to strengthen himself back up. He was recently diagnosed with hypotension and started on midodrine. no abd pain or any blood loss since admission. He is hungry but enjoyed the chicken broth he was given for dinner. He has a reduced cardiac ejection fraction of 45%. [facility] All Active Problems (Updated 01/17/25 @ 22:03 by Anila Mcclure MD) Acute blood loss anemia (Acute) Hematemesis (Acute) Hypercalcemia (Acute) Weight loss (Acute) Atrial fibrillation (Chronic) Coronary artery disease (Chronic) Anemia (Chronic) Acute upper gastrointestinal bleeding (Acute) Asymmetrical sensorineural hearing loss (Acute) Pituitary mass (Acute) Tinnitus, bilateral (Acute) Sensorineural hearing loss of both ears (Acute) Social History Smoking/Tobacco Use Status: Former Tobacco Use Smoking risk assessment performed?: Yes Alcohol Intake: never Drug use: Never Substance use type: does not use Housing: house Do you feel safe at home: Yes Do you feel safe in your relationship?: Yes Exam Narrative Exam Narrative: awake, NAD eomi, MMM midline trachea, neck is symmetric PULM: normal resp effort, equal chest rise with respiration, no wheezing audible CARDIAC: normal PMI, no jvd, regular rate, normal perfusion abdomen is nondistended. extremities are without deformity, normal movement of all four extremities speech is clear and coherent mood and affect are congruent, no focal neurological deficits skin without rash Results Last Vital Signs Temp 97.5 F L 01/17/25 17:37 Pulse 66 01/17/25 17:37 Resp 18 01/17/25 17:37 BP 120/58 L 01/17/25 17:37 Pulse Ox 96 01/17/25 17:37 Labs 01/17/25 14:00 01/17/25 10:55 Labs: Laboratory Results - last 24 hr 01/17/25 01/17/25 01/17/25 10:55 12:00 14:00 WBC 5.34 5.40 RBC 4.01 L 3.68 L Hgb 12.2 L 11.2 L Hct 36.8 L 34.2 L MCV 92 93 MCH 30.4 30.4 MCHC 33.2 32.7 RDW 14.3 H 14.5 H Plt Count 205 179 MPV 10.4 10.3 Immature Gran % 0.2 0.2 Neutrophils % 77.0 72.8 Lymphocytes % 12.4 15.9 Monocytes % 6.9 7.4 Eosinophils % 2.8 3.0 Basophils % 0.7 0.7 Nucleated RBC % 0.0 0.0 Absolute Neutrophils 4.11 3.93 Absolute Lymphocytes 0.66 L 0.86 L Absolute Monocytes 0.37 0.40 Absolute Eosinophils 0.15 0.16 Absolute Basophils 0.04 0.04 PT 11.1 INR 1.1 Sodium 140 Potassium 4.5 Chloride 103 Carbon Dioxide 29.4 Anion Gap 7.6 BUN 18 Creatinine 0.7 Est GFR (CKD-EPI 2020) 96.69 Glucose 98 Calcium 11.5 H Total Bilirubin 0.8 AST 28 ALT 46 Alkaline Phosphatase 79 Troponin I 21 17 Total Protein 7.2 Albumin 4.1 Lipase 31 ABO/Rh A Positive Antibody Screen NEGATIVE
[2025-01-17] MEDS: Apixaban 5 MG TAB PO (20:38)
[2025-01-18 00:14] VITALS: BP 115/70; PULSE 70; RESP 16; TEMP 36.4; O2SAT 97
[2025-01-18] MEDS: PANTOPRAZOLE 80 MG in Normal Saline 100 ML 10 MG IV (01:56)
[2025-01-18] MEDS: Normal Saline 1,000 ML 100 ML IV (04:27)
[2025-01-18 06:51] LABS: Abs Immature Grans 0.01 10^3/uL (0.0-0.06); HCT 33.8 % (40.0-50.0); HGB 11.3 g/dL (13.5-17.5); Immature Grans % 0.2 %; MCH 31.0 pg (27.0-33.0); MCHC 33.4 % (32.0-36.0); MCV 93 fL (80-95); MPV 11.2 fL (8.0-11.0); Platelet Count 190 10^3/uL (130-400); RBC 3.64 10^6/uL (4.36-5.78); RDW 14.4 % (11.8-14.1); RDW-SD 49.6 fL; WBC 6.55 10^3/uL (4.4-10.8)
[2025-01-18 07:37] VITALS: BP 127/66; PULSE 61; RESP 17; TEMP 36.8; O2SAT 96
[2025-01-18 07:58] LABS: ALT 41 U/L (16-63); AST 24 U/L (15-37); Albumin 3.4 g/dL (3.4-5.0); Alkaline Phosphatase 66 U/L (46-116); Anion Gap 6.8 mmol/L (3-11); BUN 12 mg/dL (7-18); Bilirubin, Total 0.7 mg/dL (0.2-1.0); CO2 28.2 mmol/L (21.0-32.0); Calcium 10.6 mg/dL (8.5-10.1); Chloride 107 mmol/L (98-107); Estimated GFR 96.69 (mL/min/1.73m2); Glucose 98 mg/dL (74-106); Potassium 4.0 mmol/L (3.5-5.1); Sodium 142 mmol/L (136-145); Total Protein 6.1 g/dL (6.4-8.2)
[2025-01-18] MEDS: Ondansetron O.D.T. 4 MG TABEF PO (09:15)
[2025-01-18 09:27] VITALS: BP 122/67; PULSE 59; O2SAT 97
[2025-01-18] MEDS: Clopidogrel 75 MG TAB PO (11:35)
[2025-01-18] MEDS: Tamsulosin 0.4 MG CAPCR PO (11:35)
[2025-01-18] MEDS: Amiodarone 200 MG TAB PO (11:36)
[2025-01-18] MEDS: Apixaban 5 MG TAB PO (11:36)
[2025-01-18] MEDS: Sertraline 100 MG TAB 150 MG PO (11:36)
[2025-01-18] MEDS: Omeprazole 20 MG CAPCR PO (11:36)
[2025-01-18] MEDS: Atorvastatin 40 MG TAB 80 MG PO (11:37)
[2025-01-18] MEDS: Cholecalciferol (Vitamin D3) 1,000 UNIT TAB 1000 UNITS PO (11:40)
[2025-01-18] MEDS: Calcitonin-Salmon, Synthetic 3.7 ML BTL NS (11:45)
--- NOTE | 2025-01-18 12:22 | W.PM.DS.N ---
Date of service: 01/18/25 Time of Service: 12:22 DS: Diagnosis Discharge Diagnosis (1) Hematemesis: Status: Acute (2) Acute upper gastrointestinal bleeding: Status: Acute (3) Atrial fibrillation: Status: Chronic (4) Acute blood loss anemia: Status: Acute Discharge Plan Disposition Patient Disposition: Home Condition: Stable Discharge Details Reason For Visit: GIB Admit Date/Time: 01/17/25 16:06 Admit Provider: Dm Lambert Attending Provider: Dm Lambert Primary Care Provider: Phuong Gar Hospital Course Hospital Course: History of Present Illness History of Present Illness Chief Complaint: GIB Narrative: This is a 74-year-old gentleman has had multiple contacts with healthcare [facility] of [facility] including having a stent placed approximately 10 days ago and then having to be readmitted to the hospital for severe dizziness and weakness. Patient was seen at [facility] where he stated that at [facility] for his workup for his dizziness. Patient states that the workup was ultimately benign and he was diagnosed with orthostatic hypotension and vasovagal response. Patient was started on midodrine. Approximately in May the patient was seen in [facility] at that point was diagnosed with A-fib and started on Eliquis. Patient further states that he has an appointment with an avaya engineer for a mass. Reviewed data from October of this year though he did not get his CT angiogram which showed less than 50% stenosis on the left and 7 to 70% to 90% on the right. patient did endorse a mass on either his thyroid gland or his parathyroid gland and states that it was diagnosed here but in reviewing his radiographic reports I do not see any mention of this. Patient presents today with 1 episode of hematemesis this a.m. ED physician did reach out to general surgery Dr. Mcclure who recommends overnight observation clear liquid diet and Protonix drip. Assessment and Plan Assessment and plan (1) Pituitary mass: Status: Acute Assessment and plan: Pt reports that he is supposed to see a Endocrine Surgeon at [facility] for a mass on his thyroid or parathyroid. His medical record indicates a possible pituitary mass. The reason this is an issue is because of his hypercalcemia which has been present since 07/14/24 to one degree or another. Will see if I can get more information in regards to his surgeon and plan at [facility] (2) Acute upper gastrointestinal bleeding: Status: Acute Assessment and plan: clear liquids and monitor. On ppi drip. GS consulted (3) Anemia: Status: Chronic Assessment and plan: no need for xfusion at this point. Pt is a [employer] and refused blood products (4) Coronary artery disease: Status: Chronic Assessment and plan: Recent stent deployment and started on plavix. It is possible to use eliquis for his afib as well as his stent but will defer to his Certified Financial Planner. Would continue anticoagulation despite recent GIB 2/2 concerns about in-stent stenosis off of plavix. (5) Atrial fibrillation: Status: Chronic Assessment and plan: pt currently is in NSR with RBBB. (6) Weight loss: Status: Acute Assessment and plan: Exact etiology is unknown but is a bit worrisome. Pt states his appetite is good and pt denies B symptoms. Pt denies abd pain with eating or dentalgia (7) Hypercalcemia: Status: Acute Assessment and plan: exact etiology is unknown. Will give calcitonin and ivf and recheck in am. History of Present Illness History of Present Illness Chief Complaint: possible GI bleeding Narrative: 74yo M who takes plavix and eliquis who is admitted for observation following report of GI bleeding at home. Pt notes he had a stomach ache and then began to vomit blood. there was about a cup or so of bright and dark red blood with his second episode of emesis at home. His first emesis was bilious. He did not vomit again after the hematemesis. He presented to the ED and had normal vitals and unremarkable labwork. A repeat hgb was checked and he was found to have dropped from 12.2 to 11.2 in a short period of time. This along with his report of gross bleeding, and his anticoagulation prompted an observation stay. Pt reports he has not had any more bloody emesis. He tells me he bleeds so easily since being started on the blood thinner and the plavix after a heart attack 6 months ago. He is a jehovahs witness and does not accept blood transfusions. He has been losing some weight and appetite hasnt been great that he attributes to being weaker since his heart attack. He does cardiac rehab at [facility] three times a week to try to strengthen himself back up. He was recently diagnosed with hypotension and started on midodrine. no abd pain or any blood loss since admission. He is hungry but enjoyed the chicken broth he was given for dinner. He has a reduced cardiac ejection fraction of 45% Assessment and plan: One episode at home - monitor for recurrence. Differential is broad, and he is on anticoagulant and antiplatelet agent. Anemia is mild and hgb should be rechecked in AM. Barring significant recurrence of this I recommend an outpatient elective EGD and colonoscopy to be completed when his antiplt and anticoagulant have been held safely. If he were to develop more hematemesis or significant anemia, then waiting for eliquis to wear off then scoping more urgently would be prudent. For now, as long as his hematemesis does not recur, he can be observed. CLD today regular diet and home tomorrow if he does well and remains stable. (2) Acute upper gastrointestinal bleeding: Status: Acute Assessment and plan: suspected due to report of hematemesis at home. He has had weight loss and endoscopy is appropriate for evaluation. Safer to do when off anticoagulants in an elective setting (3) Atrial fibrillation: Status: Chronic Assessment and plan: ok to continue plavix and eliquis at this time as there is no evidence of major or ongoing bleeding. cardiac comorbidities that benefit from these drugs are present and will be followed clinically. (4) Acute blood loss anemia: Status: Acute Assessment and plan: mild. monitor with plan as noted above. Pt did not have anymore episodes of hematemesis and I recommended dc to which he readily agreed. Pt does have a history of hypercalcemia and has an appointment with endocrine surgery at [facility] on Friday. I will give calcitonin for a few days. Timing of possible EGD delicate as he is on both Plavix and Eliquis. Generally the patient would should be on Plavix for over a year after stent deployment but I guess something was a 9-month since 5. Hopefully will not have another bleeding this propagation. He is going home on Eliquis and Plavix. Could have a conversation with his cryptological technician about using Eliquis only but will defer to the outpatient setting. Recommendations for Follow Up Recommended tests to be ordered by follow up provider: Recheck calcium in 5-7 days Home Meds and New Rx's Prescriptions: New calcitonin (salmon) 200 unit/actuation [place],Non-Aerosol 1 spray NS DAILY 5 Days Qty: 3.7 0RF Continued tamsulosin 0.4 mg capsule 0.4 mg PO DAILY buspirone 5 mg tablet 5 mg PO TID PRN cholecalciferol (vitamin D3) 25 mcg (1,000 unit) tablet 25 mcg PO DAILY Patient Comments: TAKE 1 TABLET BY MOUTH EVERY DAY furosemide 40 mg tablet 40 mg PO DAILY PRN Patient Comments: TAKE 1 TABLET BY MOUTH EVERY DAY atorvastatin 80 mg tablet 80 mg PO DAILY amiodarone 200 mg tablet 200 mg PO DAILY Patient Comments: TAKE 2 TABLETS DAILY FOR 7 DAYS THEN REDUCE DOSE TO 1 TABLET DAILY UNTIL FOLLOW UP sertraline 100 mg tablet 150 mg PO DAILY clopidogrel 75 mg tablet 75 mg PO DAILY cabergoline 0.5 mg tablet 0.5 mg PO DIRECTED Rx Instructions: mon and fri Eliquis 5 mg tablet 5 mg PO BID Discontinued omeprazole 20 mg capsule,delayed release(DR/EC) 20 mg PO DAILY ondansetron 4 mg tablet,disintegrating 4 mg PO Q8H PRNQty: 10 0RF Discharge Instructions Activity:: Activity as Tolerated Equipment/Supplies:: No Equipment Needed Diet:: As Tolerated Discharge Orders Discharge Orders: Discharge Order (Routine); Ordered 01/18/25 Ordered By: Dm Lambert DS: Summary Time Spent with Patient providing and/or coordinating discharge services: Greater than 30 minutes Status at Discharge Functional status at discharge: independent ambulation Overall status at discharge: patient is back to baseline Mental Status: mental status grossly normal Speech and Movement: speech and movement normal Mood: congruent mood Affect: normal affect Exam Narrative Exam Narrative: awake, NAD eomi, MMM midline trachea, neck is symmetric PULM: normal resp effort, equal chest rise with respiration, no wheezing audible CARDIAC: normal PMI, no jvd, regular rate, normal perfusion abdomen is nondistended. extremities are without deformity, normal movement of all four extremities speech is clear and coherent mood and affect are congruent, no focal neurological deficits skin without rash Psych Mental Status: mental status grossly normal Speech and Movement: speech and movement normal Mood: congruent mood Affect: normal affect DS: Data Vitals/I&O Vitals and I&O: Vital Signs Temperature 36.8 C 01/18/25 07:37 Temperature Source Temporal Artery Scan 01/18/25 09:27 Pulse 59 L 01/18/25 09:27 Pulse Rhythm Regular 01/17/25 17:37 Pulse 63 01/17/25 17:01 Respiratory Rate 17 01/18/25 07:37 Respiratory Effort Short of Breath 01/17/25 17:37 Respiratory Depth Normal 01/17/25 17:37 Respiratory Pattern Normal 01/17/25 17:37 Blood Pressure 122/67 01/18/25 09:27 Blood Pressure Mean 85 01/18/25 09:27 Blood Pressure Position Sitting 01/17/25 11:29 Pulse Oximetry 97 01/18/25 09:27 Oxygen Delivery Method Room Air 01/18/25 09:27 Oxygen Flow Rate 0 01/18/25 09:27 Pain Level 0 01/18/25 00:14 Comment PT SLEEPING REFUSED VITALS 01/18/25 05:05 Intake & Output 01/17/25 01/18/25 01/18/25 23:59 11:59 23:59 Intake Total 662 / 662 1095.333 / 1195.333 100 / 1195.333 Output Total 600 / 600 900 / 900 Balance 62 / 62 195.333 / 295.333 100 / 295.333 Weight 72.5 kg 73.5 kg Intake: IV 102 / 102 1095.333 / 1195.333 100 / 1195.333 Oral 560 / 560 Output: Urine 600 / 600 900 / 900 Other: Urine Color Yellow Yellow Urine Appearance Clear Urine Odor Normal Data Completed and Pending Labs on day of discharge: Labs from last 24 hours 01/18/25 01/17/25 01/17/25 05:53 14:00 12:00 WBC 6.55 5.40 RBC 3.64 L 3.68 L Hgb 11.3 L 11.2 L Hct 33.8 L 34.2 L MCV 93 93 MCH 31.0 30.4 MCHC 33.4 32.7 RDW 14.4 H 14.5 H Plt Count 190 179 MPV 11.2 H 10.3 Immature Gran % 0.2 0.2 Neutrophils % 77.7 72.8 Lymphocytes % 11.5 15.9 Monocytes % 6.9 7.4 Eosinophils % 3.2 3.0 Basophils % 0.5 0.7 Nucleated RBC % 0.0 0.0 Absolute Neutrophils 5.10 3.93 Absolute Lymphocytes 0.75 L 0.86 L Absolute Monocytes 0.45 0.40 Absolute Eosinophils 0.21 0.16 Absolute Basophils 0.03 0.04 Sodium 142 Potassium 4.0 Chloride 107 Carbon Dioxide 28.2 Anion Gap 6.8 BUN 12 Creatinine 0.7 Est GFR (CKD-EPI 2020) 96.69 Glucose 98 Calcium 10.6 H Total Bilirubin 0.7 AST 24 ALT 41 Alkaline Phosphatase 66 Troponin I 17 Total Protein 6.1 L Albumin 3.4 PFSH All Active Problems (Updated 01/17/25 @ 22:03 by Anila Mcclure MD) Acute blood loss anemia (Acute) Hematemesis (Acute) Hypercalcemia (Acute) Weight loss (Acute) Atrial fibrillation (Chronic) Coronary artery disease (Chronic) Anemia (Chronic) Acute upper gastrointestinal bleeding (Acute) Asymmetrical sensorineural hearing loss (Acute) Pituitary mass (Acute) Tinnitus, bilateral (Acute) Sensorineural hearing loss of both ears (Acute) Social History Smoking/Tobacco Use Status: Former Tobacco Use Smoking risk assessment performed?: Yes Alcohol Intake: never Drug use: Never Substance use type: does not use Housing: house Do you feel safe at home: Yes Do you feel safe in your relationship?: Yes Time Spent with Patient Time Spent with Patient: 45-69 minutes Time was spent: preparing to see the patient(eg.review tests), obtaining and/or reviewing separately otained hiistory, ordering medications,tests, procedures, referring, communicating with other health resident care director, indepentently interpreting results, counseling the patient and care coordination
--- NOTE | 2025-01-18 12:51 | CMPROGNOTE_ITS ---
Date of service: 01/18/25 Time of Service: 12:51 Care Management Progress Note Progress Note Text Progress Note Text: Nathan was admitted yesterday after waking in the morning with blood noted on his pillow, and then having some epigastric pain and vomiting some rust colored blood. Nathan has a complicated past medical history, and recently had an extended stay at [facility]. Nathan was sitting up in bed, just finishing lunch, when CM met with him and his Amber today. He is happy to go home, but he and his wish they had an answer to what is happening. Nathan attends cardiac rehab here at [facility] 3x/week. He is no longer able to drive because of his vago-vasal episodes. Amber takes him everywhere and knows him better than I know myself. Discharge Potential Discharge Needs: PCP F/U Appt and Other (endocrine specialist at [facility], continue with cardiac rehab) Anticipated Barriers to Discharge: None Identified Patient/Family Education Needs: Review discharge instructions, discuss Ask Me Three Transportation: Private vehicle Plan: Nathan will discharge home this afternoon with a continuation of his [facility] RN and tele-health. He will f/u with his PCP and with his specialists and continue per his plan of care. Nathan will transport home with Amber. Social Determinants of Health Screening Social Determinants of health last assessed in clinic: 01/18/25 Will the Patient Participate in the Screening?: Yes Do you worry about having a steady place to live?: no Problems where you live: no known problems In the past 12 months, have you had to go without electric, gas, oil or water in your home?: no 1. Within the past 12 months, we worried whether our food would run out before we got money to buy more.: Never true 2. Within the past 12 months, the food we bought just didn't last and we didn't have money to get more.: Never true Has lack of transportation kept you from medical appointments or from doing things needed for daily living?: no Has anyone in your life made you feel unsafe or unsupported?: no How hard is it for you to pay for the very basics like food, housing, medical care, and heating? Would you say it is:: Not hard at all Do you want help finding or keeping work or a job?: I do not need or want help If for any reason you need help with day-to-day activities such as bathing, preparing meals, shopping, managing finances, etc., do you get the help you need?: I don?t need any help How often do you feel lonely or isolated from those around you?: Never Do you speak a language other than [place] at home?: No Does the patient want assistance with any of the above?: No Anticipated HH Services Anticipated HH Services at Discharge [facility], [facility] Anticipated Date of Discharge: 01/18/25. Following Provider: Phuong Gar.
--- NOTE | 2025-01-18 14:11 | NUR.NOTE ---
Attempted calling SNF for Rn to RN report, called, transferred to a voicemail, attempted 3 times to call, phone rang and then disconnected Note:
== END 2025-01-18 13:20 | disposition home or self-care (01) ==
LOC: ER 17:08 → MS 17:22
PROVIDERS: Admitting Provider Hospitalist; Emergency Provider Physician Assistant; PCP Nurse Practitioner Family; Responsible Provider Hospitalist; Visit Provider Hospitalist
DX: K92.0 Hematemesis (principal); D62 Acute posthemorrhagic anemia; E23.6 Other disorders of pituitary gland; Z79.02 Long term (current) use of antithrombotics/antiplatelets; Z79.01 Long term (current) use of anticoagulants; I48.20 Chronic atrial fibrillation, unspecified; I25.2 Old myocardial infarction; I95.9 Hypotension, unspecified; E83.52 Hypercalcemia; H90.3 Sensorineural hearing loss, bilateral; Z87.891 Personal history of nicotine dependence; I25.10 Atherosclerotic heart disease of native coronary artery without angina pectoris; R63.4 Abnormal weight loss; Z68.22 Body mass index [BMI] 22.0-22.9, adult; R53.1 Weakness; Z95.5 Presence of coronary angioplasty implant and graft
CPT/HCPCS: 00123; 36415; 71275; 80053; 83690; 86850; 86900; 86901; 93005; 96365; 96366; 96367; 96375; 96376; 99222; 99285; 74174; 84484; 85025; 85610; 93010; 99239; G0378; J1200; J2470; J3490

== ENCOUNTER 2025-01-28 15:12 | Outpatient (REF) | payer MEDICARE, SELFPAY ==
[2025-01-28 16:32] LABS: COMMENT (LAB VIEW ONLY) 124.25 mg/dL; Microalb ug/mg Crea 7.3 ug/mg Cr
== END 2025-01-28 15:13 | disposition home or self-care (01) ==
LOC: NCHCN 15:12
PROVIDERS: PCP Nurse Practitioner Family; Visit Provider Nurse Practitioner Family
DX: E11.9 Type 2 diabetes mellitus without complications (principal)
CPT/HCPCS: 82043; 82570

== ENCOUNTER 2025-02-25 14:10 | Outpatient (REF) | payer MEDICARE, SELFPAY ==
[2025-02-25 15:39] LABS: HCT 39.0 % (40.0-50.0); HGB 12.8 g/dL (13.5-17.5); MCH 31.1 pg (27.0-33.0); MCHC 32.8 % (32.0-36.0); MCV 95 fL (80-95); MPV 11.3 fL (8.0-11.0); Platelet Count 180 10^3/uL (130-400); RBC 4.12 10^6/uL (4.36-5.78); RDW 13.2 % (11.8-14.1); RDW-SD 45.8 fL; WBC 6.54 10^3/uL (4.4-10.8)
[2025-02-25 16:07] LABS: Anion Gap 5.8 mmol/L (3-11); BUN 19 mg/dL (7-18); CO2 30.2 mmol/L (21.0-32.0); Calcium 10.9 mg/dL (8.5-10.1); Chloride 105 mmol/L (98-107); Estimated GFR 96.69 (mL/min/1.73m2); Ferritin 481 ng/mL (26-388); Glucose 96 mg/dL (74-106); Potassium 4.8 mmol/L (3.5-5.1); Sodium 141 mmol/L (136-145)
== END 2025-02-25 14:11 | disposition home or self-care (01) ==
LOC: NCHCN 14:10
PROVIDERS: PCP Nurse Practitioner Family; Visit Provider Nurse Practitioner Family
DX: Z86.2 Personal history of diseases of the blood and blood-forming organs and certain disorders involving the immune mechanism (principal)
CPT/HCPCS: 80048; 85027; 82728

== ENCOUNTER 2025-03-09 09:00 | Outpatient (RCR) | payer MEDICARE, SELFPAY | END 2025-03-18 23:59 | disposition home or self-care (01) | LOC: CR 09:00 | PROVIDERS: PCP Nurse Practitioner Family; Visit Provider Internal Medicine Cardiovascular Disease | DX: I25.118 Atherosclerotic heart disease of native coronary artery with other forms of angina pectoris (principal); I48.0 Paroxysmal atrial fibrillation; Z51.89 Encounter for other specified aftercare | CPT/HCPCS: S9472 ==

== ENCOUNTER 2025-03-28 09:10 | Outpatient (CLI) | payer MEDICARE, SELFPAY ==
[2025-03-28 14:11] LABS: Abs Immature Grans 0.01 10^3/uL (0.0-0.06); HCT 32.8 % (40.0-50.0); HGB 10.7 g/dL (13.5-17.5); Immature Grans % 0.2 %; MCH 30.1 pg (27.0-33.0); MCHC 32.6 % (32.0-36.0); MCV 92 fL (80-95); MPV 10.3 fL (8.0-11.0); Platelet Count 230 10^3/uL (130-400); RBC 3.56 10^6/uL (4.36-5.78); RDW 13.7 % (11.8-14.1); RDW-SD 47.0 fL; WBC 6.27 10^3/uL (4.4-10.8)
[2025-03-28 15:10] LABS: Anion Gap 6.7 mmol/L (3-11); BUN 14 mg/dL (7-18); CO2 30.3 mmol/L (21.0-32.0); Calcium 8.5 mg/dL (8.5-10.1); Chloride 105 mmol/L (98-107); Glucose 84 mg/dL (74-106); Magnesium 1.8 mg/dL (1.8-2.4); Potassium 4.3 mmol/L (3.5-5.1); Sodium 142 mmol/L (136-145)
== END 2025-03-28 09:11 | disposition home or self-care (01) ==
LOC: LBO 09:11
PROVIDERS: PCP Nurse Practitioner Family; Visit Provider Internal Medicine
DX: I48.91 Unspecified atrial fibrillation (principal)
CPT/HCPCS: 36415; 80048; 82330; 83735; 85025

== ENCOUNTER 2025-03-31 13:15 | Outpatient (CLI) | payer MEDICARE, SELFPAY ==
--- NOTE | 2025-03-31 13:15 | RT.EKG_ITS ---
APPROVED REPORT Exam: Resting ECG Reason for Exam: ATRIAL FIBRILLATION Patient Location: O HR:73 bpm ECG Measurements Heart Rate 73 AXIS LA 163 P 77 QRSd 138 QRS 79 QT 416 T 53 QTc 459 Conclusion Sinus rhythm Atrial premature beats Right bundle branch block...QRSd>120, terminal axis(90,270)
== END 2025-03-31 13:16 | disposition home or self-care (01) ==
PROVIDERS: PCP Nurse Practitioner Family; Visit Provider Internal Medicine
DX: I48.0 Paroxysmal atrial fibrillation (principal)
CPT/HCPCS: 93005; 93010

== ENCOUNTER 2025-04-13 09:00 | Outpatient (RCR) | payer MEDICARE, SELFPAY | END 2025-04-17 23:59 | disposition home or self-care (01) | LOC: CR 09:00 | PROVIDERS: PCP Nurse Practitioner Family; Visit Provider Internal Medicine Cardiovascular Disease | DX: I50.9 Heart failure, unspecified (principal); I48.0 Paroxysmal atrial fibrillation; Z51.89 Encounter for other specified aftercare | CPT/HCPCS: S9472 ==